=== PATIENT | male | born 1985 | race Caucasian/White ===

== ENCOUNTER 2016-11-22 16:20 | Inpatient (IN) | payer MEDICARE, OTHER ==
[~2016-11-22] VITALS: Ht 180.3 cm; Wt 54.6 kg
[~2016-11-22 16:20] MED LIST: ARIP1TAB87 PO
[2016-11-22 16:22] VITALS: BP 129/62; PULSE 81; RESP 12; TEMP 98.6; O2SAT 100
--- NOTE | 2016-11-22 16:31 | PD ---
Physical Exam Date Seen by Provider: Nov 22, 2016 Time Seen by Provider: 16:30 Narrative Pt is a 31 year old male presenting to the ED for admit for IV steroids. Pt has history of MS. VSS, awaiting bed placement. Data Data Last Documented VS Vital Signs Date Time Temp Pulse Resp B/P Pulse Ox O2 Delivery O2 Flow Rate FiO2 11/22/16 16:22 98.6 81 12 129/62 100 MDM Supervised Visit with MARCIANO: Urvashi Garcias Nov 22, 2016 16:31
[2016-11-22] MEDS ORDERED: methylPREDNISolone SO SUCC INJ 250 MG in DEXTROSE 5% IN WATER 100ML INJ 100 ML IV ONE ×2 (21:00)
[2016-11-22] MEDS ORDERED: methylPREDNISolone SOD SUCC 125 MG/2 ML VIAL IV PUSH ONE (21:00)
[2016-11-22 21:03] LABS: AUTOMATED NEUTROPHIL # 7.1 TH/MM3 (1.8-7.7); BASOPHIL # 0.1 TH/MM3 (0-0.2); EOSINOPHIL # 0.1 TH/MM3 (0-0.4); EOSINOPHIL % 0.6 % (0.0-4.0); HEMATOCRIT 53.1 % (39.0-51.0); HEMO FLAGS DIFF FINAL; LYMPH % 22.4 % (9.0-44.0); LYMPHOCYTE # 2.3 TH/MM3 (1.0-4.8); MEAN CELL VOLUME 86.4 FL (80.0-100.0); MEAN CORPUSCULAR HEMOGLOBIN 30.5 PG (27.0-34.0); MEAN CORPUSCULAR HGB CONC 35.3 % (32.0-36.0); MONO % 6.9 % (0.0-8.0); NEUT % 69.1 % (16.0-70.0); PLATELET COUNT 202 TH/MM3 (150-450); RED BLOOD COUNT 6.15 MIL/MM3 (4.50-5.90); RED CELL DISTRIBUTION WIDTH 13.3 % (11.6-17.2); WHITE BLOOD COUNT 10.2 TH/MM3 (4.0-11.0)
[2016-11-22 21:24] LABS: ALKALINE PHOSPHATASE 83 U/L (45-117); TOTAL BILIRUBIN ADULT 0.5 MG/DL (0.2-1.0)
[2016-11-22] MEDS ORDERED: SODIUM CHLORID 0.9% 500 ML INJ 500 ML IV ONE (21:30)
[2016-11-22 21:33] LABS: ALT (GPT) 18 U/L (12-78); ANION GAP 8 MEQ/L (5-15); AST (GOT) 26 U/L (15-37); BICARBONATE 29.1 MEQ/L (21.0-32.0); BLOOD UREA NITROGEN 13 MG/DL (7-18); CHLORIDE 101 MEQ/L (98-107); GLOMERULAR FILTRATION RATE 100 ML/MIN (>89); POTASSIUM 4.7 MEQ/L (3.5-5.1); SODIUM (NA) 138 MEQ/L (136-145)
--- NOTE | 2016-11-22 21:45 | PD ---
HPI Chief Complaint: General Weakness Time Seen by Provider: 20:26 Travel History International Travel<30 days: No Contact w/Intl Traveler<30days: No Traveled to known affect area: No History of Present Illness HPI Patient is a 31 year old male with history of MS, who comes in due to an MS flare. He says he has been unable to walk for the past 2 months. He was on one medication at home that provided no relief of his symptoms. Dr. Diaz, his neurologist suggested he get Solumedrol infusions. He received the first one yesterday at home, but the visiting nurse today said his IV blew. Dr. Diaz would like him admitted to the hospital for management of his flare. He denies fever or chills. He denies any difficulty breathing. PFSH Past Medical History Anxiety: No Depression: No Cancer: No Cardiovascular Problems: No Diminished Hearing: Yes (Pt states " its sometimes effected by my multiple sclerosis" ) Endocrine: No Genitourinary: No Immune Disorder: No Musculoskeletal: No Neurologic: Yes (multiple sclerosis DX 2006, syptoms since 17 years old.) Psychiatric: No Reproductive: No Respiratory: No Tetanus Vaccination: > 5 Years Influenza Vaccination: No Social History Alcohol Use: Yes (rare) Tobacco Use: Yes (3/4 ppd, smoked today) Substance Use: Yes (methamphetamine; THC) Allergies-Medications (Allergen,Severity, Reaction): Coded Allergies: No Known Allergies (Verified , 11/22/16) Reported Meds & Prescriptions Reported Meds & Active Scripts Active No Active Prescriptions or Reported Medications Review of Systems Except as stated in HPI: all other systems reviewed are Neg General / Constitutional: No: Fever, Chills Eyes: No: Blurred Vision HENT: No: Headaches, Lightheadedness Cardiovascular: No: Chest Pain or Discomfort Respiratory: No: Shortness of Breath Gastrointestinal: No: Nausea, Vomiting Genitourinary: No: Dysuria Musculoskeletal: No: Pain Neurologic: Positive: Weakness Physical Exam Narrative GENERAL: Awake and alert, in no acute distress. SKIN: Focused skin assessment warm/dry. HEAD: Atraumatic. Normocephalic. EYES: Pupils equal and round. No scleral icterus. No injection or drainage. ENT: Mucous membranes pink and moist. NECK: Trachea midline. No JVD. CARDIOVASCULAR: Regular rate and rhythm. No murmur appreciated. RESPIRATORY: No accessory muscle use. Clear to auscultation. Breath sounds equal bilaterally. GASTROINTESTINAL: Abdomen soft, non-tender, nondistended. MUSCULOSKELETAL: No obvious deformities. No clubbing. No cyanosis. No edema. NEUROLOGICAL: Awake and alert. No obvious cranial nerve deficits. Both legs weak, strength 3/5 in the right leg, 2/5 in the left leg. Normal speech. PSYCHIATRIC: Appropriate mood and affect; insight and judgment normal. Data Data Last Documented VS Vital Signs Date Time Temp Pulse Resp B/P Pulse Ox O2 Delivery O2 Flow Rate FiO2 11/22/16 16:22 98.6 81 12 129/62 100 Orders Complete Blood Count With Diff (11/22/16 20:47) Comprehensive Metabolic Panel (11/22/16 20:47) Iv Access Insert/Monitor (11/22/16 20:47) Methylprednisolone So Succ Inj (Solumedr (11/22/16 21:00) Methylprednisolone So Succ Inj (Solumedr (11/22/16 21:00) Sodium Chlorid 0.9% 500 Ml Inj (Ns 500 M (11/22/16 21:30) Labs Laboratory Tests Test 11/22/16 20:51 White Blood Count 10.2 TH/MM3 Red Blood Count 6.15 MIL/MM3 Hemoglobin 18.7 GM/DL Hematocrit 53.1 % Mean Corpuscular Volume 86.4 FL Mean Corpuscular Hemoglobin 30.5 PG Mean Corpuscular Hemoglobin 35.3 % Concent Red Cell Distribution Width 13.3 % Platelet Count 202 TH/MM3 Mean Platelet Volume 9.8 FL Neutrophils (%) (Auto) 69.1 % Lymphocytes (%) (Auto) 22.4 % Monocytes (%) (Auto) 6.9 % Eosinophils (%) (Auto) 0.6 % Basophils (%) (Auto) 1.0 % Neutrophils # (Auto) 7.1 TH/MM3 Lymphocytes # (Auto) 2.3 TH/MM3 Monocytes # (Auto) 0.7 TH/MM3 Eosinophils # (Auto) 0.1 TH/MM3 Basophils # (Auto) 0.1 TH/MM3 CBC Comment DIFF FINAL Differential Comment Sodium Level 138 MEQ/L Potassium Level 4.7 MEQ/L Chloride Level 101 MEQ/L Carbon Dioxide Level 29.1 MEQ/L Anion Gap 8 MEQ/L Blood Urea Nitrogen 13 MG/DL Creatinine 0.88 MG/DL Estimat Glomerular Filtration 100 ML/MIN Rate Random Glucose 90 MG/DL Calcium Level 9.3 MG/DL Total Bilirubin 0.5 MG/DL Aspartate Amino Transf 26 U/L (AST/SGOT) Alanine Aminotransferase 18 U/L (ALT/SGPT) Alkaline Phosphatase 83 U/L Total Protein 8.3 GM/DL Albumin 4.3 GM/DL MDM Medical Decision Making Medical Screen Exam Complete: Yes Emergency Medical Condition: Yes Medical Record Reviewed: Yes Differential Diagnosis MS flare vs dehydration vs electrolyte abnormalities Narrative Course Patient is a 31 year old male who comes in due to an MS flare. Exam shows weakness of his legs. IV established, labs sent. Labs show a Hgb of 17, suggesting a degree of dehydration. Given IVF. Given first dose of Solumedrol. Per Dr. Diaz, patient should receive 250mg Solumedrol every 6 hrs. Patient will be admitted for further management. Diagnosis Primary Impression: MS (multiple sclerosis) Admitting Information Admitting Physician Requests: Admit Scripts No Active Prescriptions or Reported Meds Kori Johnson MD Nov 22, 2016 21:45
[2016-11-22] MEDS ORDERED: SENNOSIDES 8.6 MG TAB PO PRN (22:00)
[2016-11-22] MEDS ORDERED: ACETAMINOPHEN 325 MG TAB PO PRN (22:00)
[2016-11-22] MEDS ORDERED: ONDANSETRON HCL 4 MG/2 ML VIAL IVP PRN (22:00)
[2016-11-22] MEDS ORDERED: SODIUM CHLORIDE 0.9% FLUSH 10 ML FLUSH IV FLUSH PRN (22:00)
[2016-11-22] MEDS ORDERED: LACTULOSE SYRUP 20 GM/30 ML CUP PO PRN (22:00)
[2016-11-22] MEDS ORDERED: MORPHINE SULFATE 4 MG/ML INJ IV PRN (22:00)
[2016-11-22] MEDS ORDERED: MAGNESIUM HYDROXIDE SUSP 30 ML CUP PO PRN (22:00)
[2016-11-22] MEDS ORDERED: ACETAMINOPHEN/HYDROcodone 325 MG/5 MG TAB PO PRN (22:00)
[2016-11-22] MEDS ORDERED: BISACODYL 10 MG SUPP RECTAL PRN (22:00)
--- NOTE | 2016-11-22 22:02 | HHI.HP ---
[facility] Dwight [facility], PhD, MD Admission Diagnosis MS Flare Diagnoses: (1) MS (multiple sclerosis) Diagnosis: Principal (2) Hemoglobinemia Diagnosis: Principal (3) Tobacco abuse Diagnosis: Principal Travel History International Travel<30 Days: No Contact w/Intl Traveler <30 Da: No Traveled to Known Affected Are: No History of Present Illness This is a 31-year-old male with PMH of Multiple Sclerosis, Tobacco Abuse and h/ o Substance Abuse was referred to the ER by his Neurologist, Dr. Diaz, for IV Solu-Medrol secondary to MS Flare. Per pt he has had progressive weakness, unable to walk for approx 2months. Follows w/ Dr. Diaz as outpatient, started on IV Solu-Medrol w/ [facility] yesterday, was to receive dose today, however IV not functioning and referred to ER. Dr. Diaz consulted by ER physician, pt to be continued on Solu-Medrol 250mg IV q6h. on arrival, BP 129/62, HR 81, O2 sat 100 % on RA, Afebrile. CBC unremarkable except for Hemoglobin 18.7. Chemistry unremarkable. Review of Systems Except as stated in HPI: all other systems reviewed are Neg ROS: 14 point review of systems otherwise negative. Past Family Social History Past Medical History PMH: Multiple Sclerosis, Tobacco Abuse and h/o Substance Abuse Past Surgical History PAST SURGICAL HISTORY: None Allergies: Coded Allergies: No Known Allergies (Verified , 11/22/16) Family History PAST FAMILY HISTORY: Reviewed. No h/o DM or CAD Social History PAST SOCIAL HISTORY: Occasional alcohol. Smokes 1ppd. +Methamphetamine, + Marijuana. Physical Exam Vital Signs Vital Signs Date Time Temp Pulse Resp B/P Pulse Ox O2 Delivery O2 Flow Rate FiO2 11/22/16 16:22 98.6 81 12 129/62 100 Physical Exam PE: GENERAL: Middle-aged male in no acute distress. HEENT: PERRLA, EOMI. No scleral icterus or conjunctival pallor. No lid lag or facial droop. CARDIOVASCULAR: Regular rate and rhythm. No obvious murmurs to auscultation. No chest tenderness to palpation. RESPIRATORY: No obvious rhonchi or wheezing. Clear to auscultation. Breath sounds equal bilaterally. GASTROINTESTINAL: Abdomen soft, non-tender, nondistended. BS normal. MUSCULOSKELETAL: Extremities without clubbing, cyanosis, or edema. No obvious deformities. NEUROLOGICAL: Awake, alert and oriented x4. Bilateral LE weakness, 3/5 strength. Moving both upper and lower extremities spontaneously. Laboratory Laboratory Tests Test 11/22/16 20:51 White Blood Count 10.2 Red Blood Count 6.15 Hemoglobin 18.7 Hematocrit 53.1 Mean Corpuscular Volume 86.4 Mean Corpuscular Hemoglobin 30.5 Mean Corpuscular Hemoglobin 35.3 Concent Red Cell Distribution Width 13.3 Platelet Count 202 Mean Platelet Volume 9.8 Neutrophils (%) (Auto) 69.1 Lymphocytes (%) (Auto) 22.4 Monocytes (%) (Auto) 6.9 Eosinophils (%) (Auto) 0.6 Basophils (%) (Auto) 1.0 Neutrophils # (Auto) 7.1 Lymphocytes # (Auto) 2.3 Monocytes # (Auto) 0.7 Eosinophils # (Auto) 0.1 Basophils # (Auto) 0.1 CBC Comment DIFF FINAL Differential Comment Sodium Level 138 Potassium Level 4.7 Chloride Level 101 Carbon Dioxide Level 29.1 Anion Gap 8 Blood Urea Nitrogen 13 Creatinine 0.88 Estimat Glomerular Filtration 100 Rate Random Glucose 90 Calcium Level 9.3 Total Bilirubin 0.5 Aspartate Amino Transf 26 (AST/SGOT) Alanine Aminotransferase 18 (ALT/SGPT) Alkaline Phosphatase 83 Total Protein 8.3 Albumin 4.3 Result Diagram: 11/22/16205011/22/162050 Assessment and Plan Problem List: (1) MS (multiple sclerosis) ICD Code: G35 Status: Acute (2) Hemoglobinemia ICD Code: D59.9 Status: Acute (3) Tobacco abuse ICD Code: Z72.0 Status: Acute Assessment and Plan A/P: 1. MS: Multiple Sclerosis w/ Acute Flare, progressive LE weakness x2 months, unable to ambulate. Follows w/ Dr. Diaz as outpatient, referred to ER for Solu -Medrol IV, Dr. Diaz consulted by ER physician, will start Solu-Medrol 250mg IV q6h. 2. Hemoglobinemia: Hgb 18, likely combination of dehydration and tobacco abuse. IVF, repeat labs in am. 3. Tobacco Abuse: Pt counselled. NicoDerm/Ativan prn if needed. 4. DVT Prophylaxis: SCD/Teds. 5. Social work for d/c planning as needed. 6. Case discussed w/ ER physician at length. Physician Certification 2 Midnight Certification Type: Admission for Inpatient Services Order for Inpatient Services The services are ordered in accordance with Medicare regulations or non- Medicare payer requirements, as applicable. In the case of services not specified as inpatient-only, they are appropriately provided as inpatient services in accordance with the 2-midnight benchmark. Estimated LOS (days): 2 days is the estimated time the patient will need to remain in the hospital, assuming treatment plan goals are met and no additional complications. Post-Hospital Plan: Not yet determined Clair Garcia MD Nov 22, 2016 22:02
[2016-11-22] MEDS: SODIUM CHLOR 0.9% 1000 ML INJ 1,000 ML IV SCH (22:16)
[2016-11-22 23:20] VITALS: BP 126/58; PULSE 84; RESP 14; O2SAT 99
[2016-11-23 00:33] VITALS: BP 132/60; PULSE 78; RESP 14; O2SAT 100
[2016-11-23] MEDS: methylPREDNISolone SOD SUCC 125 MG/2 ML VIAL IV PUSH SCH ×4 (03:31→22:05)
[2016-11-23 04:00] VITALS: BP 140/91; PULSE 84; RESP 18; TEMP 96.8; O2SAT 97
[2016-11-23 05:42] LABS: AUTOMATED NEUTROPHIL # 6.4 TH/MM3 (1.8-7.7); BASOPHIL # 0.1 TH/MM3 (0-0.2); BASOPHIL % 0.8 % (0.0-2.0); EOSINOPHIL % 0.1 % (0.0-4.0); HEMATOCRIT 47.4 % (39.0-51.0); HEMO FLAGS DIFF FINAL; LYMPH % 4.6 % (9.0-44.0); LYMPHOCYTE # 0.3 TH/MM3 (1.0-4.8); MEAN CELL VOLUME 86.1 FL (80.0-100.0); MEAN CORPUSCULAR HEMOGLOBIN 29.8 PG (27.0-34.0); MEAN CORPUSCULAR HGB CONC 34.7 % (32.0-36.0); MONO % 0.3 % (0.0-8.0); NEUT % 94.2 % (16.0-70.0); PLATELET COUNT 187 TH/MM3 (150-450); RED CELL DISTRIBUTION WIDTH 13.1 % (11.6-17.2); WHITE BLOOD COUNT 6.8 TH/MM3 (4.0-11.0)
[2016-11-23 06:12] LABS: ALKALINE PHOSPHATASE 67 U/L (45-117); ALT (GPT) 15 U/L (12-78); ANION GAP 9 MEQ/L (5-15); AST (GOT) 19 U/L (15-37); BICARBONATE 23.9 MEQ/L (21.0-32.0); BLOOD UREA NITROGEN 11 MG/DL (7-18); CHLORIDE 107 MEQ/L (98-107); GLOMERULAR FILTRATION RATE 130 ML/MIN (>89); SODIUM (NA) 140 MEQ/L (136-145); TOTAL BILIRUBIN ADULT 0.4 MG/DL (0.2-1.0)
[2016-11-23] MEDS: SODIUM CHLOR 0.9% 1000 ML INJ 1,000 ML IV SCH ×2 (07:59→17:59)
[2016-11-23 08:00] VITALS: BP 123/82; PULSE 81; RESP 18; TEMP 97.6; O2SAT 98
[2016-11-23] MEDS: DOCUSATE SODIUM 50 MG/SENNA 8.6 MG TAB PO SCH ×2 (08:46→22:05)
[2016-11-23] MEDS: SODIUM CHLORIDE 0.9% FLUSH 10 ML FLUSH IV FLUSH SCH ×2 (09:00→21:00)
--- NOTE | 2016-11-23 09:26 | MB ---
cc: ADA YI M.D. DATE OF CONSULTATION 11/23/2016 REASON FOR CONSULTATION He is seen in neurological consultation. He is a 31-year-old patient of Dr. Diaz for multiple sclerosis. He has been having some exacerbation of leg weakness for the past 10 days or so. The patient describes that he is no longer being able to walk using a walker as usual and this has progressed. He was told to come to the hospital. An attempt to treat him as an outpatient was made, but apparently they could not get an IV line to use Solu-Medrol. He has a diagnosis of MS in 2006 and progressively has gotten worse. He is taking with this Tecfidera and more recently Aubagio. Currently, he has been off medication for a couple of months and he is waiting on another medication, apparently Ocrevus. On exam, the patient is awake, alert, initially, pleasant, although seems to be irritable at the end as he was upset about the hospital stay. His speech is moderately dysarthric. He has [id number] dysmetria right slightly more than left and overall moderately severe. His strength is mildly impaired in the upper extremities. Reflex is 1+ at the elbows, brisker reflex at the knees with clonus at the ankles. Plantar response is equivocal, but probably flexor. The motor exam in the lower extremities is about 2/5 overall. ASSESSMENT Multiple sclerosis exacerbation. He has been treated with Solu-Medrol courses in the past. He is to continue Solu-Medrol 250 IV every 6 hours. If outpatient Solu-Medrol can be arranged, this would be a reasonable alternative as the patient is very anxious to go home. He might need a PICC line for discharge in that scenario. Would plan on giving him Solu-Medrol for a total of 3-5 days, dose being a total of 1000 mg a day. He follows with Dr. Diaz. I saw his laboratory data. I do not think we need any imaging studies at this point. Thank you for asking us to assist in his care. MD BARBIE Kirkpatrick/MARGARITA /8:53 AM /9:15 AM
[2016-11-23 12:00] VITALS: BP 148/92; PULSE 116; TEMP 97; O2SAT 98
--- NOTE | 2016-11-23 13:59 | HHI.PR ---
Subjective Remarks patient feels better and stronger wanting to go home had a good BM just now he states that a nurse comes to his home and gives him Solumedrol IV plan was to have this for 3- 5 days IV but lost peripheral access- that;s why patient was sent here Objective Vitals Vital Signs Date Time Temp Pulse Resp B/P Pulse Ox O2 Delivery O2 Flow Rate FiO2 11/23/16 12:00 97.0 116 148/92 98 11/23/16 08:00 97.6 81 18 123/82 98 11/23/16 04:00 96.8 84 18 140/91 97 11/23/16 00:33 78 14 132/60 100 11/22/16 23:20 84 14 126/58 99 11/22/16 16:22 98.6 81 12 129/62 100 I/O 11/22/16 11/22/16 11/22/16 11/23/16 11/23/16 11/23/16 07:00 15:00 23:00 07:00 15:00 23:00 Intake Total 350 ml Balance 350 ml Intake IV Total 350 ml # Voids 2 Result Diagram: 11/23/16 0450 11/23/16 0450 Objective Remarks awake and alert, NAD anciteric lungs clear regular rhythm abdomen soft extremities no edema moves all extremities spontaneously A/P Problem List: (1) MS (multiple sclerosis) ICD Code: G35 Status: Acute (2) Hemoglobinemia ICD Code: D59.9 Status: Acute (3) Tobacco abuse ICD Code: Z72.0 Status: Acute Assessment and Plan 31 years old male 1. MS: Multiple Sclerosis w/ Acute Flare, progressive LE weakness x2 months, unable to ambulate. Follows w/ Dr. Diaz as outpatient, Solu-Medrol 250mg IV q6h. peripheral access obtained. Neurology ff along with us. PT consult 2. Hemoglobinemia: Hgb 18, likely combination of dehydration and tobacco abuse. continue IVF, H and H improved. 3. Tobacco Abuse: Amphetamine +. Pt counselled. NicoDerm/Ativan prn if needed. 4. DVT Prophylaxis: SCD/Teds. 5. Social work for d/c planning as needed. PT/OT consult patient states has all supplies/meds at home will ask CM to confirm to make sure safe discharge and steroid course uninterrupted Silvina Vogt MD Nov 23, 2016 13:59
--- NOTE | 2016-11-23 14:16 | HHI.FF ---
Face to Face Verification Diagnosis: (1) MS (multiple sclerosis) Physical Therapy Order: Evaluate and Treat, Improve ambulation Occupational Therapy Order: Evaluate and Treat, Fine motor coordination Home Health Nursing Order: Medical education Signs/symptoms of disease process Medication education-adverse effect Nursing assessment with vital signs I have seen patient Isidro Yu on 11/23/16. My clinical findings support the need for the requested home health care services because: Ltd mobility - disease progression Deconditioned w/ increased weakness High risk of falls I certify that my clinical findings support that this patient is homebound because: Unsteady gait/balance Need for psychosocial assistance Silvina Vogt MD Nov 23, 2016 14:16
[2016-11-23] MEDS: PANTOPRAZOLE SOD 40 MG DELAYED RELEASE TAB PO SCH (15:00)
[2016-11-23 16:00] VITALS: BP 135/75; PULSE 90; RESP 18; TEMP 96.8; O2SAT 97
[2016-11-23 20:00] VITALS: BP 129/68; PULSE 86; RESP 18; TEMP 97.2; O2SAT 98
[2016-11-24] VITALS: BP 125/68; PULSE 86; RESP 18; TEMP 97.3; O2SAT 98
[2016-11-24] MEDS: methylPREDNISolone SOD SUCC 125 MG/2 ML VIAL IV PUSH SCH ×4 (03:00→20:39)
[2016-11-24] MEDS: SODIUM CHLOR 0.9% 1000 ML INJ 1,000 ML IV SCH ×3 (03:43→23:59)
[2016-11-24 04:00] VITALS: BP 124/69; PULSE 89; RESP 17; TEMP 97.5; O2SAT 97
[2016-11-24 08:00] VITALS: BP 120/76; PULSE 84; RESP 16; TEMP 96.9; O2SAT 97
--- NOTE | 2016-11-24 08:12 | HHI.PR ---
Subjective Remarks feeling better no complains of pain, no incontinence now agreeable to SNF- d/w him and PT staff- strength improving but not consistent yet- gait unsteady d/w staff nurse and patient "veins keep rolling" we loss IV access again Objective Vitals Vital Signs Date Time Temp Pulse Resp B/P Pulse Ox O2 Delivery O2 Flow Rate FiO2 11/24/16 04:00 97.5 89 17 124/69 97 11/24/16 00:00 97.3 86 18 125/68 98 11/23/16 20:00 97.2 86 18 129/68 98 11/23/16 16:00 96.8 90 18 135/75 97 11/23/16 12:00 97.0 116 148/92 98 I/O 11/23/16 11/23/16 11/23/16 11/24/16 11/24/16 11/24/16 07:00 15:00 23:00 07:00 15:00 23:00 Intake Total 350 ml 720 ml 240 ml 480 ml Balance 350 ml 720 ml 240 ml 480 ml Intake Oral 720 ml 240 ml 480 ml IV Total 350 ml # Voids 2 2 1 3 # Bowel Movements 1 0 0 Result Diagram: 11/23/16 0450 11/23/16 0450 Objective Remarks awake and alert, NAD anicter lungs clear regular rhythm abdomen soft extremities no edema, individual muscle group strength strong moves all extremities spontaneously A/P Problem List: (1) MS (multiple sclerosis) ICD Code: G35 Status: Acute (2) Hemoglobinemia ICD Code: D59.9 Status: Acute (3) Tobacco abuse ICD Code: Z72.0 Status: Acute Assessment and Plan 31 years old male 1. MS: Multiple Sclerosis w/ Acute Flare, progressive LE weakness x2 months, unable to ambulate. Follows w/ Dr. Diaz as outpatient, on high dose IV steroids- Solu-Medrol 250mg IV q6h. Neurology ff along with us. PT consult 2. Hemoglobinemia: Hgb 18, likely combination of dehydration and tobacco abuse. continue IVF, H and H improved. 3. Tobacco Abuse: Amphetamine +. Pt counselled. NicoDerm/Ativan prn if needed. 4. DVT Prophylaxis: SCD/Teds. 5. Social work for d/c planning as needed. - SNF- for PT and IV meds administration Vascular consult- for PICC line placement- patient needs high dose steroid for at least 3-5 days for MS flare poor IV access PT/OT daily- d/w Darin our PT- ideal SNF candidate- patient agreeable now to go and for IV Solumedrol administration q 6 Silvina Vogt MD Nov 24, 2016 08:12
[2016-11-24] MEDS: DOCUSATE SODIUM 50 MG/SENNA 8.6 MG TAB PO SCH ×2 (09:00→20:53)
[2016-11-24] MEDS: SODIUM CHLORIDE 0.9% FLUSH 10 ML FLUSH IV FLUSH SCH ×2 (09:00→20:20)
[2016-11-24] MEDS ORDERED: INFLUENZA VIRUS VACCINE (QUADRIVALENT) 0.5 ML SYR IM ONE (10:00)
[2016-11-24 12:00] VITALS: BP 117/68; PULSE 108; RESP 20; TEMP 97.4; O2SAT 95
[2016-11-24] MEDS: PANTOPRAZOLE SOD 40 MG DELAYED RELEASE TAB PO SCH (14:11)
[2016-11-24 16:00] VITALS: BP 112/75; PULSE 78; RESP 16; TEMP 96.3; O2SAT 98
[2016-11-24 20:00] VITALS: BP 133/71; PULSE 80; RESP 17; TEMP 96.3; O2SAT 94
[2016-11-25] VITALS: BP 132/71; PULSE 78; RESP 18; TEMP 97.2; O2SAT 98
[2016-11-25] MEDS: methylPREDNISolone SOD SUCC 125 MG/2 ML VIAL IV PUSH SCH ×3 (02:36→17:14)
[2016-11-25 04:00] VITALS: BP 133/72; PULSE 72; RESP 19; TEMP 96.8; O2SAT 98
[2016-11-25 08:00] VITALS: BP 123/76; PULSE 64; RESP 15; TEMP 96.5; O2SAT 99
[2016-11-25] MEDS: DOCUSATE SODIUM 50 MG/SENNA 8.6 MG TAB PO SCH (08:54)
[2016-11-25] MEDS: PANTOPRAZOLE SOD 40 MG DELAYED RELEASE TAB PO SCH (08:54)
--- NOTE | 2016-11-25 09:54 | HHI.PR ---
Subjective Remarks feels stronger no complains of pain no incontinence, good po Objective Vitals Vital Signs Date Time Temp Pulse Resp B/P Pulse Ox O2 Delivery O2 Flow Rate FiO2 11/25/16 08:00 96.5 64 15 123/76 99 11/25/16 04:00 96.8 72 19 133/72 98 11/25/16 00:00 97.2 78 18 132/71 98 11/24/16 20:00 96.3 80 17 133/71 94 11/24/16 16:00 96.3 78 16 112/75 98 11/24/16 12:00 97.4 108 20 117/68 95 I/O 11/24/16 11/24/16 11/24/16 11/25/16 11/25/16 11/25/16 07:00 15:00 23:00 07:00 15:00 23:00 Intake Total 480 ml 500 ml 960 ml 480 ml Balance 480 ml 500 ml 960 ml 480 ml Intake Oral 480 ml 500 ml 960 ml 480 ml # Voids 3 4 2 3 # Bowel Movements 0 1 0 0 Result Diagram: 11/23/1644911/23/160 Objective Remarks awake and alert, NAD anicteric lungs clear abdomen soft extremities no edema, individual muscle group strength strong moves all extremities spontaneously Procedures 11/14- midline IV access A/P Problem List: (1) MS (multiple sclerosis) ICD Code: G35 Status: Acute (2) Hemoglobinemia ICD Code: D59.9 Status: Acute (3) Tobacco abuse ICD Code: Z72.0 Status: Acute Assessment and Plan 31 years old male 1. MS: Multiple Sclerosis w/ Acute Flare, progressive LE weakness x2 months, unable to ambulate. Follows w/ Dr. Diaz as outpatient, on high dose IV steroids- Solu-Medrol 250mg IV q6h. Neurology ff along with us. PT ff- per patient baseline uses a walker 2. Hemoglobinemia: Hgb 18, likely combination of dehydration and tobacco abuse. H and H improved. 3. Tobacco Abuse: Amphetamine +. Pt counselled. NicoDerm/Ativan prn if needed. 4. DVT Prophylaxis: SCD/Teds. 5. Social work for d/c planning as needed. - SNF- for PT and IV meds administration PT/OT daily- d/w Darin our PT- ideal SNF candidate- patient agreeable now to go - CM consult and for IV Solumedrol administration q 6 Silvina Vogt MD Nov 25, 2016 09:54
[2016-11-25 12:00] VITALS: BP 135/75; PULSE 65; RESP 16; TEMP 97.2; O2SAT 99
[2016-11-25] MEDS ORDERED: SOLU125I IV PUSH (12:59)
[2016-11-25] MEDS ORDERED: PANT40TA3 PO (12:59)
[2016-11-25] MEDS ORDERED: HYDR-3516 PO (12:59)
[2016-11-25] MEDS ORDERED: ACET1TAB86 PO (12:59)
--- NOTE | 2016-11-25 14:54 | HHI.PR ---
Review/Management Diagnosis Multiple Sclerosis Exacerbation Plan cotinue iv solumedrol 5 days--through Friday. Ok from neuro standpoint to transfer to [facility] rehab and finish solumedrol there Diagnosis/Plan: Subjective Subjective Comments No acute events reported Day 3 iv solumedrol He feels he is improving but still with significant weakness on left side Active Medications Current Medications Medications (Trade) Dose Ordered Sig/Simona Route Start Time Stop Time Status Last Admin (NS 1000 ml Inj) 1,000 ml @ 100 mls/hr Q10H IV 11/22/16 21:59 11/24/16 20:53 (NS Flush) 2 ml UNSCH PRN IV FLUSH 11/22/16 22:00 (NS Flush) 2 ml BID IV FLUSH 11/23/16 09:00 11/23/16 09:00 (Zofran Inj) 4 mg Q6H PRN IVP 11/22/16 22:00 11/24/16 20:51 (Tylenol) 650 mg Q6H PRN PO 11/22/16 22:00 ([place] 5-325 Mg) 1 tab Q4H PRN PO 11/22/16 22:00 (Morphine Inj) 2 mg Q3H PRN IV 11/22/16 22:00 (Kami-Colace) 1 tab BID PO 11/23/16 09:00 11/25/16 08:54 (Milk Of Magnesia Liq) 30 ml Q12H PRN PO 11/22/16 22:00 (Senokot) 17.2 mg Q12H PRN PO 11/22/16 22:00 (Dulcolax Supp) 10 mg DAILY PRN RECTAL 11/22/16 22:00 (Lactulose Liq) 30 ml DAILY PRN PO 11/22/16 22:00 (Protonix) 40 mg DAILY PO 11/23/16 15:00 11/25/16 08:54 (SoluMEDROL INJ) 250 mg Q6H IV PUSH 11/24/16 14:00 11/25/16 08:54 Allergies Allergies Coded Allergies No Known Allergies (Verified11/22/16) Exam I&O / VS 11/24/16 11/24/16 11/25/16 15:00 23:00 07:00 Intake Total 500 ml 960 ml 480 ml Balance 500 ml 960 ml 480 ml Intake Oral 500 ml 960 ml 480 ml # Voids 4 2 3 # Bowel Movements 1 0 0 Vital Signs Date Time Temp Pulse Resp B/P Pulse Ox O2 Delivery O2 Flow Rate FiO2 11/25/16 12:00 97.2 65 16 135/75 99 11/25/16 08:00 96.5 64 15 123/76 99 11/25/16 04:00 96.8 72 19 133/72 98 11/25/16 00:00 97.2 78 18 132/71 98 11/24/16 20:00 96.3 80 17 133/71 94 11/24/16 16:00 96.3 78 16 112/75 98 Exam Comments alert, speech normal CN intact MOTOR 5/5 RUE, 4/5 LUE, 4+/5 RLE, 3/5 LLE Dwight Diaz PhD MD Nov 25, 2016 14:54
--- NOTE | 2016-11-25 16:01 | HHI.DS ---
Discharge Summary Admission Date Nov 22, 2016 at 21:51 Discharge Date: Nov 25, 2016 Admitting Diagnosis MS Flare (1) MS (multiple sclerosis) ICD Code: G35 Diagnosis: Principal (2) Hemoglobinemia ICD Code: D59.9 Diagnosis: Secondary (3) Tobacco abuse ICD Code: Z72.0 Diagnosis: Secondary Procedures 11/14- midline IV access Brief History - From Admission This is a 31-year-old male with PMH of Multiple Sclerosis, Tobacco Abuse and h/ o Substance Abuse was referred to the ER by his Neurologist, Dr. Diaz, for IV Solu-Medrol secondary to MS Flare. Per pt he has had progressive weakness, unable to walk for approx 2months. Follows w/ Dr. Diaz as outpatient, started on IV Solu-Medrol w/ [facility] yesterday, was to receive dose today, however IV not functioning and referred to ER. Dr. Diaz consulted by ER physician, pt to be continued on Solu-Medrol 250mg IV q6h. on arrival, BP 129/62, HR 81, O2 sat 100 % on RA, Afebrile. CBC unremarkable except for Hemoglobin 18.7. Chemistry unremarkable. CBC/BMP: 11/23/16 0450 11/23/16 0450 Significant Findings Laboratory Tests Test 11/22/16 11/23/16 20:51 04:50 Red Blood Count 6.15 MIL/MM3 (4.50-5.90) Hemoglobin 18.7 GM/DL (13.0-17.0) Hematocrit 53.1 % (39.0-51.0) Total Protein 8.3 GM/DL (6.4-8.2) Neutrophils (%) (Auto) 94.2 % (16.0-70.0) Lymphocytes (%) (Auto) 4.6 % (9.0-44.0) Lymphocytes # (Auto) 0.3 TH/MM3 (1.0-4.8) Random Glucose 124 MG/DL (74-106) PE at Discharge awake and alert, NAD anicteric lungs clear abdomen soft extremities no edema, individual muscle group strength stronger moves all extremities spontaneously Pt update on day of discharge awake and alert strength stronger with ongoing PT and IV steroids motivated with physical therapy Hospital Course 31 years old male 1. MS: Multiple Sclerosis w/ Acute Flare, progressive LE weakness x2 months, unable to ambulate. Follows w/ Dr. Diaz as outpatient, on high dose IV steroids- Solu-Medrol 250mg IV q6h. Neurology ff along with us. PT ff- per patient baseline uses a walker 2. Hemoglobinemia: Hgb 18, likely combination of dehydration and tobacco abuse. H and H improved. 3. Tobacco Abuse: Amphetamine +. Pt counselled. NicoDerm/Ativan prn if needed. 4. DVT Prophylaxis: SCD/Teds. 5. Social work for d/c planning as needed. - SNF- for PT and IV meds administration PT/OT daily- d/w Darin our PT- ideal SNF candidate- patient agreeable now to go - CM consult and for IV Solumedrol administration q 6 Pt Condition on Discharge: Stable Discharge Disposition: Rehab Inpatient Discharge Time: <= 30 minutes Discharge Instructions DIET: Follow Instructions for: As Tolerated, No Restrictions Speech Therapy-Diet Recommends: Regular Activities you can perform: Weight Bearing as Halina Other Activity Instructions: daily PT superficison and progress Follow up Referrals: Neurology - Next Day with Argelia Tovar MD New Medications: Acetaminophen (Eq Acetaminophen) 325 Mg Tab 650 MG PO Q6H PRN FEVER/PAIN SCALE 1 TO 2 #30 TAB Hydrocodone-Acetaminophen (Hydrocodone-Acetaminophen) 5-325 mg Tab 1 TAB PO Q4H PRN PAIN SCALE 4 TO 10 Days 5 TAB Methylprednisolone Sod Succinate Inj (Solu-Medrol Inj) 125 Mg Inj 250 MG IV PUSH Q6H MS flare Days 3 INJECTION Pantoprazole (Pantoprazole) 40 Mg Tab 40 MG PO DAILY GIpro Days 30 TAB Silvina Vogt MD Nov 25, 2016 16:01
[2016-11-25 17:00] VITALS: BP 134/68; PULSE 80; RESP 15; TEMP 96.5; O2SAT 98
== END 2016-11-25 20:41 | DRG 59 ==
LOC: NEPC 16:20 → NEDA 21:51 → HOCA 11-23 01:39
PROVIDERS: ADMIT Internal Medicine; ATTEND Internal Medicine
DX: G35 Multiple sclerosis (principal); D59.9 Acquired hemolytic anemia, unspecified; F17.210 Nicotine dependence, cigarettes, uncomplicated; E86.0 Dehydration
CPT/HCPCS: 76937; 80053; 85025; J2405; J2930; J7030; J7040

== ENCOUNTER 2017-10-17 07:12 | Inpatient (IN) ==
[2017-10-17] MEDS ORDERED: Bisacodyl 10 MG Supp RECTAL PRN (08:02)
[2017-10-17] MEDS ORDERED: Acetaminophen 325 MG Tablet PO PRN (08:02)
--- NOTE | 2017-10-17 09:39 | P.HP ---
History of Present Illness Primary Care Physician: Dwight Diaz MD, PhD Chief Complaint: Progressive weakness, hearing loss History of Present Illness: Mr. Yu is a 32-year-old male with a history of multiple sclerosis , tobacco, marijuana use who presents to the hospital as a direct admit by neurologist Dr. Quintero for plasmapheresis. Dr. Dwight Diaz is patient's neurologist. Mr. Yu was admitted in November 2016 for MS exacerbation. About a month prior to this hospitalization, he had an episode of ear infection. Although he had hearing difficulties on one ear, since he had ear infection, now he has bilateral hearing loss. His lower extremity weakness has not improved despite aggressive in-patient and in-home physical therapy. Currently, patient is resting in bed comfortably. No CP, SOB, fever, chills. Parents at bedside. - Diagnosis (1) Multiple sclerosis Inpatient Certification: I certify that the inpatient services were ordered in accordance with Medicare regulations governing the order. This includes certification that hospital inpatient services are reasonable and necessary and in the case of services not specified as inpatient-only under 42 CFR 419.22(n), that they are appropriately provided as inpatient services in accordance to with the 2-midnight benchmark under 43 CFR 412.3(e) Estimated Total Length of Stay (Days): 5 Plans for Post Hospital Care: Home Review of Systems Ears, Nose, Mouth, and Throat: Reports other Comments: Hearing loss - bilateral. Musculoskeletal: Reports other Comments: Lower extremity weakness PMFSH - Medical / Surgical Hx Neg / Unobtainable Medical Problems Denied: Yes Surgical History: No Previous Surgery - Family History Family History: Family History (Last Updated 10/17/17 @ 09:56 by Odalys Faust DO) Grandparent Family history of acute myocardial infarction - Tobacco History Tobacco Use In Past 30 Days: Yes Smoking Status: Current every day smoker - Alcohol History How Often Do You Have a Drink Containing Alcohol: Never - Substance Use History Substance History: Active Abuse Medications and Allergies Active Medications: Active Medications Acetaminophen (Tylenol) 650 mg PO Q4H PRN PRN Reason: Headache, fever, pain 1-4 Al Hydroxide/Mg Hydroxide (Milk Of Magnesia Liq) 30 ml PO Q12H PRN PRN Reason: Mild Constipation Bisacodyl (Dulcolax Supp) 10 mg RECTAL DAILY PRN PRN Reason: SEVERE CONSITIPATION Enoxaparin Sodium (Lovenox Inj) 40 mg SQ Q24H HARVINDER Lactulose (Lactulose Liq) 30 ml PO DAILY PRN PRN Reason: SEVERE CONSITIPATION Sennosides (Senokot) 17.2 mg PO Q12H PRN PRN Reason: Moderate Constipation Temazepam (Restoril) 15 mg PO HS PRN PRN Reason: INSOMNIA Allergies Allergy/AdvReac Type Severity Reaction Status Date / Time No Known Allergies Allergy Uncoded 11/22/16 20:31 Exam Vital signs: Vital Signs 10/17/17 08:13 10/17/17 08:14 Temperature 98 F Pulse Rate 70 Respiratory Rate 16 Blood Pressure 141/109 H 152/103 H Pulse Oximetry 100 Narrative: GENERAL: This is a well-nourished, well-developed patient, in no apparent distress. SKIN: No rashes, ecchymoses or lesions. Warm and dry. HEAD: Atraumatic. Normocephalic. No temporal or scalp tenderness. EYES: Pupils equal round and reactive. No injection or drainage. ENT: Nose without bleeding, purulent drainage or septal hematoma. Airway patent. NECK: Trachea midline. No lymphadenopathy. Supple, nontender, no meningeal signs. CARDIOVASCULAR: Regular rate and rhythm without murmurs, gallops, or rubs. No JVD. RESPIRATORY: Clear to auscultation. Breath sounds equal bilaterally. No wheezes , rales, or rhonchi. GASTROINTESTINAL: Abdomen soft, non-tender, nondistended. No guarding. MUSCULOSKELETAL: Extremities without clubbing, cyanosis, or edema. NEUROLOGICAL: Awake and alert. Hard of hearing. No focal deficits. Caprini VTE Risk Assessment Caprini VTE Risk Assessment: Moderate/High Risk (score >= 2) Caprini Risk Assessment Model: Point Value = 1 Point Value = 2 Point Value = 3 Point Value = 5 Age 41-60 Minor surgery BMI > 25 kg/m2 Swollen legs Varicose veins or History of unexplained or recurrent spontaneous Oral contraceptives or hormone replacement Sepsis (< 1 month) Serious lung disease, including pneumonia (< 1 month) Abnormal pulmonary function Acute myocardial infarction Congestive heart failure (< 1 month) History of inflammatory bowel disease Medical patient at bed rest Age 61-74 Arthroscopic surgery Major open surgery (> 45 min) Laparoscopic surgery (> 45 min) Malignancy Confined to bed (> 72 hours) Immobilizing plaster cast Central venous access Age >= 75 History of VTE Family history of VTE Factor V Leiden Prothrombin [id number] Lupus anticoagulant Anticardiolipin antibodies Elevated serum homocysteine Heparin-induced thrombocytopenia Other congenital or acquired thrombophilia Stroke (< 1 month) Elective arthroplasty Hip, pelvis, or leg fracture Acute spinal cord injury (< 1 month) Prophylaxis Regimen: Total Risk Factor Score Risk Level Prophylaxis Regimen 0-1 Low Early ambulation 2 Moderate Order ONE of the following: *Sequential Compression Device (SCD) *Heparin 5000 units SQ BID 3-4 Higher Order ONE of the following medications: *Heparin 5000 units SQ TID *Enoxaparin/Lovenox 40 mg SQ daily (WT < 150 kg, CrCl > 30 mL/min) *Enoxaparin/Lovenox 30 mg SQ daily (WT < 150 kg, CrCl > 10-29 mL/min) *Enoxaparin/Lovenox 30 mg SQ BID (WT < 150 kg, CrCl > 30 mL/min) AND/OR *Sequential Compression Device (SCD) 5 or more Highest Order ONE of the following medications: *Heparin 5000 units SQ TID (Preferred with Epidurals) *Enoxaparin/Lovenox 40 mg SQ daily (WT < 150 kg, CrCl > 30 mL/min) *Enoxaparin/Lovenox 30 mg SQ daily (WT < 150 kg, CrCl > 10-29 mL/min) *Enoxaparin/Lovenox 30 mg SQ BID (WT < 150 kg, CrCl > 30 mL/min) AND *Sequential Compression Device (SCD) Assessment and Plan - Assessment (1) Multiple sclerosis Code(s): G35 - Multiple sclerosis Status: Acute - Plan Mr. Yu is a 32 year old male with a history of MS who was admitted directly based on Neurologist's recommendations for Plasmapharesis. Patient has had persistent lower extremity weakness despite aggressive PT. His hearing is also worsening since he had an episode of ear infection about a month prior to this admission. Multiple sclerosis exacerbation - Will consult Dr. Diaz (Patient's neurologist). - Hematology consulted to initiate Plasmapharesis. - Obtain basic labs - CBC, CMP, PT/INR. - Regular diet. Tobacco abuse Marijuana use - Will start patient on Nicotine patch 14mg Qday. Full code. Lovenox.
[2017-10-17 11:56] LABS: Baso # (Auto) 0.1 th/mm3 (0.0-0.2); Baso % (Auto) 0.8 % (0.0-2.0); Eos # (Auto) 0.1 th/mm3 (0.0-0.4); Eos % (Auto) 1.6 % (0.0-4.0); Hematocrit 42.5 % (39.0-51.0); Hemoglobin 14.8 gm/dL (13.0-17.0); Lymph % (Auto) 26.8 % (9.0-44.0); Mean Corpuscular HGB Conc 34.7 % (32.0-36.0); Mean Corpuscular Hemoglobin 29.5 pg (27.0-34.0); Mean Platelet Volume 8.8 fL (7.0-11.0); Mono # (Auto) 0.7 th/mm3 (0.0-0.9); Mono % (Auto) 9.3 % (0.0-8.0); Neut # (Auto) 4.7 th/mm3 (1.8-7.7); Neut % (Auto) 61.5 % (16.0-70.0); Platelet Count 211 th/mm3 (150-450); Red Blood Count 5.01 mil/mm3 (4.50-5.90); Red Cell Distribution Width 13.6 % (11.6-17.2); White Blood Count 7.6 th/mm3 (4.0-11.0)
[2017-10-17 12:00] LABS: INR 1.1 Ratio; Prothrombin Time 11.4 sec (9.8-11.6)
[2017-10-17 12:19] LABS: Alanine Aminotransferase 13 U/L (12-78); Albumin 3.5 g/dL (3.4-5.0); Anion Gap 9 meq/L (5-15); Aspartate Aminotransferase 19 U/L (15-37); Blood Urea Nitrogen 17 mg/dL (7-18); Calcium 8.5 mg/dL (8.5-10.1); Chloride 110 meq/L (98-107); Glomerular Filtration Rate Greater Than 89 mL/min (>89); Glucose,Random 71 mg/dL (74-106); Potassium 3.9 meq/L (3.5-5.1); Sodium 143 meq/L (136-145)
[2017-10-17 12:21] LABS: Alkaline Phosphatase 70 U/L (45-117); Total Protein 6.2 g/dL (6.4-8.2)
[2017-10-17] MEDS: Enoxaparin Inj 40 MG/0.4 ML Syringe SQ SCH (12:45)
[2017-10-17] MEDS ORDERED: *Heparin 10,000 UNITS/10 ML Vial Periprocedural ONLY ONE (15:25)
--- NOTE | 2017-10-17 16:43 | IR ---
EXAM DATE: 10/17/2017 4:17 PM EDT AGE/SEX: 32 years / Male INDICATIONS: Patient presents with Multiple Sclerosis in need of temporary dialysis catheter placeme nt for plasmapheresis. CLINICAL DATA: This is the patient's initial encounter. Patient reports that signs and symptoms have been present for 1 day and indicates a pain score of 0/10. MEDICAL/SURGICAL HISTORY: Multiple sclerosis. Tobacco use.Marijuana use. No previous surgery. COMPARISON: No prior exams available for comparison. FLUORO TIME (min): 0.12 IMAGE SERIES: 2 ACCESS SITE: Right internal jugular vein DEVICE(S): 14 Divehi double lumen 15cm Schon catheter . . PROCEDURE : 1. Ultrasound guided venipuncture. 2. Fluoroscopic guidance. 3. Central line placement. The risks, benefits and alternatives to the procedure were explained and verbal and written consent w as obtained. The site was prepped in sterile fashion. Full sterile technique was used, including ca p, mask, sterile gloves and gown and a large sterile sheet. Hand hygiene and 2% chlorhexidine prep w as utilized per protocol for cutaneous antisepsis with appropriate dry time for site. Sterile gel an d sterile probe cover were utilized for ultrasound guidance. The skin and subcutaneous tissues were infiltrated with local anesthetic solution. A suitable site a cathy the vein was selected with ultrasound and fluoroscopic guidance. A small incision was made. Th e vein was accessed under direct ultrasound visualization using the micropuncture technique. The laisha ropuncture set was exchanged for a 0.035 wire. The tract was dilated. The catheter was advanced int o position under direct fluoroscopic visualization, and was advanced with the tip at the junction of the superior vena cava and rt atrium. The catheter was fixed in place with suture and a sterile dres sing was applied. The patient tolerated the procedure well and there were no complications. CONCLUSION: 1. Uncomplicated line placement as above. Electronically signed by: Newton Lawson MD 10/17/2017 4:42 PM EDT
--- NOTE | 2017-10-17 17:47 | MB ---
cc: Dwight Diaz MD, PhD Dwight Diaz MD PhD DATE: 10/16/2017 REASON FOR CONSULTATION: Multiple sclerosis. HISTORY OF PRESENT ILLNESS: Mr. Yu is a 32-year-old man who has multiple sclerosis, which has been progressing over the past year or so such that he is essentially bedridden, has speech difficulty. He has been on Aubagio. He has been tried on IV Solu-Medrol as an outpatient with no significant benefit. Therefore, he is admitted for a trial of plasmapheresis. PAST MEDICAL HISTORY: Remarkable for multiple sclerosis. MEDICATIONS 1. Aubagio 14 mg daily. 2. Captopril 12.5 mg b.i.d. 3. Lovenox 40 mg subcutaneous daily. 4. Lactulose. 5. Senokot. 6. Restoril. NEUROLOGICAL EXAMINATION: His blood pressure is 141/109, pulse is 70, respiratory rate is 16, temperature 98 degrees. Higher cortical function: He is alert. Speech is very dysarthric and aphasic. Cranial nerves are intact. Motor exam: He is diffusely weak at 3/5 in both upper extremities, 1/5 both lower extremities. He is hyperreflexic. LABORATORY DATA: The white count is 7600, hemoglobin 14.8, hematocrit 42.5%, platelet count 211,000. PT of 11.4, INR 1.1. Sodium is 143, potassium 3.9, chloride 110. The BUN is 17, creatinine 0.72, AST 19, ALT is 13. IMPRESSION: Severe multiple sclerosis. RECOMMENDATION: We will consult hematology for plasmapheresis, which will be a total of seven treatments every other day. Also obtain an MRI of the brain, cervical and thoracic spine. Dwight Diaz MD, PhD RICH/ , 05:34 PM , 05:45 PM
--- NOTE | 2017-10-17 19:06 | MB ---
cc: Lion Olivares MD DATE: 10/17/2017 REASON FOR CONSULTATION: Hematology consulted for plasmapheresis in a patient with exacerbation of multiple sclerosis. HISTORY OF PRESENT ILLNESS: The patient is a 32-year-old male patient with history of multiple sclerosis, admitted by Dr. Phillips for plasmapheresis. The patient has been seeing Dr. Diaz for multiple sclerosis. The multiple sclerosis had been progressively getting worse over the last 1 year. According to his father, the patient has loss of hearing. He has become bedridden for the last 1 month because of lower extremity weakness. He also has speech difficulty. He has tried IV Solu-Medrol and Aubagio without significant response. The patient denies any chest pain, shortness of breath or cough. He denies any headache, or vision changes. He denies any nausea, vomiting, diarrhea or abdominal pain. Denied any change in urine habits. PAST MEDICAL HISTORY: Multiple sclerosis. PAST SURGICAL HISTORY: None. FAMILY HISTORY: No multiple sclerosis. He has a sister who is healthy. SOCIAL HISTORY: He smoked marijuana. He has now switched to smoking e-cigarettes. He denies alcohol use. ALLERGIES: NO KNOWN DRUG ALLERGIES. CURRENT MEDICATIONS: 1. Dulcolax. 2. Captopril. 3. Lovenox. 4. Lactulose. 5. Nicotine patch. 6. Aubagio. 7. Senokot. REVIEW OF SYSTEMS: CONSTITUTIONAL: As above. EYES: Negative. ENT: As above. CARDIOVASCULAR: Denies any chest pressure or palpitation. RESPIRATORY: Denies shortness of breath or cough. GASTROINTESTINAL: Denies any nausea, vomiting, diarrhea, has constipation. Denies any abdominal pain. GENITOURINARY: Denies dysuria or hematuria. MUSCULOSKELETAL: As above. HEMATOLOGY: Negative. ENDOCRINE: Negative. DERMATOLOGIC: Negative. PSYCHIATRIC: Negative. NEUROLOGIC: As above. PHYSICAL EXAMINATION: VITAL SIGNS: Temperature 98, blood pressure 141/109, O2 saturation 100%. GENERAL: He is alert, oriented. He is hard of hearing. He is cachectic. HEENT: Atraumatic, normocephalic. Pupils are equal, round, reactive to light. Oropharynx has dry mucosa. NECK: No thyromegaly or palpable mass. LYMPHATIC: No palpable cervical, clavicular, axillary, or inguinal lymph nodes. CARDIOVASCULAR: Regular S1, S2, mildly tachycardic. LUNGS: Clear to auscultation anteriorly. ABDOMEN: Soft, nontender. I could not palpate liver or spleen. EXTREMITIES: No cyanosis, clubbing, or edema. SKIN: No rash or petechiae. NEUROLOGIC: Bilateral lower extremity weakness. LABORATORY DATA: WBC within normal limits. Creatinine 0.72. Liver transaminase within normal limits. IMPRESSION: Multiple sclerosis, which is progressively getting worse. He had been on Aubagio. He did not respond to IV Solu-Medrol. His symptoms have progressively worsen over the last 1 month. He was admitted to the hospital for plasmapheresis by Dr. Diaz. I have explained the procedure to the patient and his father at the bedside. We went over potential complications, which include, but are not limited to cardiovascular complications with coagulopathy, infusional reaction, hypocalcemia and so on. They agreed to proceed. We have consulted radiology to place a Vas-Cath. Plan to start plasmapheresis tomorrow. Discussed with Dr. Diaz and he recommended 7 sessions of plasmapheresis. We will exchange 1 plasma volume every other day. We will monitor his CBC and coagulation studies. PLAN: 1. Arrange for plasma exchange every other day for 7 times. 2. Monitor CBC and coagulation studies. 3. Discussed with Dr. Diaz. Thank you Dr. Diaz for asking me to see this patient. MD DAYANA Umaña/REKHA , 06:04 PM , 07:04 PM [facility] HOSPITALRachid
[2017-10-17] MEDS ORDERED: Temazepam 15 MG Capsule PO PRN (21:00)
[2017-10-17] MEDS ORDERED: Gadodiamide PF Inj 287 MG/ML 5 ML Syringe (for RAD MRI) IVCONTRAST ONE (21:14)
--- NOTE | 2017-10-17 21:38 | MR ---
EXAM DATE: 10/17/2017 9:19 PM EDT AGE/SEX: 32 years / Male INDICATIONS: . Multiple Sclerosis CLINICAL DATA: This is the patient's initial encounter. Patient reports that signs and symptoms have been present for 1 day and indicates a pain score of 8/10. MEDICAL/SURGICAL HISTORY: Multiple sclerosis. None. COMPARISON: [facility], MR BRAIN W AND W/O CONTRAST, 10/26/2016. . TECHNIQUE: Multiplanar, multisequence examination of the brain was performed without and with 10 ml O mniscan (gadodiamide) contrast as a single exam dose. FINDINGS: Extensive periventricular and subcortical demyelinating plaques are again noted and jeremias ears slightly worse than the previous examination in October 2016. Scattered enhancement of the perivent ricular and subcortical plaques is noted suggesting active demyelination. There is also a prominent n ew plaque within the region of the right brachium pontis measuring 15 mm and demonstrating some perip heral enhancement. A new plaque within the right midbrain is also identified and demonstrates some as sociated edema. The findings are consistent with interval worsening fifth multiple sclerosis. No acute infarct, acute hemorrhage, midline shift or extra-axial fluid collections are noted. The chantell tricles, sulci and cisterns are stable. CONCLUSION: 1. Extensive periventricular and subcortical demyelinating plaques are again noted and appears sligh tly worse than the previous examination in October 2016. Scattered enhancement of the periventricular an d subcortical plaques is noted suggesting active demyelination. There is also a prominent new plaque within the region of the right brachium pontis measuring 15 mm and demonstrating some peripheral enha ncement. A new plaque within the right midbrain is also identified and demonstrates some associated e dequan. The findings are consistent with interval worsening fifth multiple sclerosis. 2. No acute infarct, acute hemorrhage, midline shift or extra-axial fluid collections are noted. Electronically signed by: Armani Fuller MD 10/17/2017 9:36 PM EDT
[2017-10-17] MEDS ORDERED: clonazePAM 0.5 MG Tablet PO SCH (22:00)
--- NOTE | 2017-10-17 22:25 | MR ---
EXAM DATE: 10/17/2017 9:47 PM EDT AGE/SEX: 32 years / Male INDICATIONS: Multiple sclerosis. CLINICAL DATA: This is the patient's initial encounter. Patient reports that signs and symptoms have been present for 1 day and indicates a pain score of 9/10. MEDICAL/SURGICAL HISTORY: Multiple sclerosis. None. COMPARISON: [facility], MR BRAIN W AND W/O CONTRAST, 10/26/2016. . TECHNIQUE: Multiplanar, multisequence MRI of the thoracic spine was performed without and with 10 ml Omniscan (gadodiamide) contrast as a single exam dose. FINDINGS: The examination is limited by patient motion during scanning. There appeared to be demyelin ating plaques throughout the thoracic cord at multiple levels. In order to identify the exact locatio n of these plaques repeat scan without motion is necessary. Minimal posterior osteophytic spurring is noted at T3-4 resulting in very minimal effacement of the anterior thecal sac. No spinal stenosis or cord impingement is noted within the thoracic spine. The thoracic vertebral bodies are normal in hei ght and marrow intensity. CONCLUSION: 1. The examination is limited by patient motion during scanning. There appeared to be demyelinating plaques throughout the thoracic cord at multiple levels. In order to identify the exact location of t hese plaques repeat scan without motion is necessary. 2. Minimal posterior osteophytic spurring is noted at T3-4 resulting in very minimal effacement of t he anterior thecal sac. Electronically signed by: Armani Fuller MD 10/17/2017 10:24 PM EDT
[2017-10-17] MEDS: AUBAGIO 14 MG PO SCH (22:34)
[2017-10-17] MEDS: clonazePAM 0.5 MG Tablet PO SCH (22:35)
[2017-10-17] MEDS: Captopril 12.5 MG Tablet PO SCH (22:36)
--- NOTE | 2017-10-17 23:01 | MR ---
EXAM DATE: 10/17/2017 9:44 PM EDT AGE/SEX: 32 years / Male INDICATIONS: . Multiple Sclerosis CLINICAL DATA: This is the patient's initial encounter. Patient reports that signs and symptoms have been present for 1 day and indicates a pain score of 8/10. MEDICAL/SURGICAL HISTORY: Multiple sclerosis. None. COMPARISON: [facility] [place], MR THORACIC SPINE W & W/O CON, 10/17/2017. . TECHNIQUE: Multiplanar, multisequence MRI examination of the cervical spine was performed without an d with 10 ml Omniscan (gadodiamide) contrast as a single exam dose. FINDINGS: The examination is somewhat limited due to patient motion during scanning particularly degrading the axial sequences and therefore making it very difficult to determine if there are demyelinating plaque s present within the cervical cord. Mild cervical spondylosis is noted C5-6 and C6-7. Minimal diffuse disc bulges and uncovertebral joint spurring is noted at C5-6 and C6-7 resulting in mild bilateral f oraminal narrowing at these levels. CONCLUSION: 1. Examination is somewhat limited due to patient motion during scanning particularly degrading the axial sequences and therefore making it very difficult to determine if there are demyelinating plaque s present within the cervical cord. 2. Minimal diffuse disc bulges and uncovertebral joint spurring is noted at C5-6 and C6-7 resulting in mild bilateral foraminal narrowing at these levels. 3. Mild cervical spondylosis is noted C5-6 and C6-7. Electronically signed by: Armani Fuller MD 10/17/2017 11:00 PM EDT
[2017-10-18] MEDS: Melatonin 5 MG Tablet PO PRN ×2 (03:21→20:00)
[2017-10-18] MEDS: clonazePAM 0.5 MG Tablet PO SCH ×3 (03:22→19:59)
[2017-10-18 07:53] LABS: Baso # (Auto) 0.1 th/mm3 (0.0-0.2); Eos # (Auto) 0.1 th/mm3 (0.0-0.4); Eos % (Auto) 0.9 % (0.0-4.0); Hematocrit 45.4 % (39.0-51.0); Hemoglobin 15.4 gm/dL (13.0-17.0); Lymph # (Auto) 2.4 th/mm3 (1.0-4.8); Lymph % (Auto) 27.7 % (9.0-44.0); Mean Corpuscular HGB Conc 33.9 % (32.0-36.0); Mean Corpuscular Volume 85.7 fL (80.0-100.0); Mono # (Auto) 0.8 th/mm3 (0.0-0.9); Mono % (Auto) 9.3 % (0.0-8.0); Neut # (Auto) 5.2 th/mm3 (1.8-7.7); Neut % (Auto) 61.1 % (16.0-70.0); Platelet Count 208 th/mm3 (150-450); Red Cell Distribution Width 13.5 % (11.6-17.2); White Blood Count 8.5 th/mm3 (4.0-11.0)
[2017-10-18] MEDS: Captopril 12.5 MG Tablet PO SCH ×2 (09:28→20:00)
[2017-10-18] MEDS: Enoxaparin Inj 40 MG/0.4 ML Syringe SQ SCH ×2 (09:40→12:20)
[2017-10-18 09:47] LABS: Activated Partial Thrombo Time 28.2 sec (24.3-30.1); INR 1.1 Ratio; Prothrombin Time 11.5 sec (9.8-11.6)
--- NOTE | 2017-10-18 10:54 | P.PNONC ---
Subjective Interval history: Afebrile Patient resting comfortably in bed with father at bedside Denies any acute complaints Reports he wants his legs to be stretched out Objective Vital Signs/Intake & Output: Vital Signs 10/17/17 16:57 10/17/17 17:08 10/17/17 23:00 Temperature 98.2 F 98.1 F Pulse Rate 92 H 97 H Respiratory Rate 1 L 18 18 Blood Pressure 153/108 H 140/113 H Pulse Oximetry 96 10/18/17 00:15 10/18/17 04:17 Temperature 98.1 F 98.2 F Pulse Rate 92 H 115 H Respiratory Rate Blood Pressure 155/98 H 141/94 H Pulse Oximetry Intake & Output 10/17/17 10/18/17 10/18/17 18:59 06:59 18:59 Intake Total 150 / 150 Balance 150 / 150 Weight 116 lb 13.52 oz 117 lb 8.102 oz Intake: Oral 150 / 150 Other: # Voids 2 Weight On Admission 116 lb 13.52 oz Result Diagrams: 10/18/17 07:23 10/17/17 11:37 Laboratory Results: Laboratory Results - last 24 hr 10/17/17 10/17/17 10/17/17 11:37 11:37 11:37 WBC 7.6 RBC 5.01 Hgb 14.8 Hct 42.5 MCV 85.0 MCH 29.5 MCHC 34.7 RDW 13.6 Plt Count 211 MPV 8.8 Neut % (Auto) 61.5 Lymph % (Auto) 26.8 [place] % (Auto) 9.3 H Eos % (Auto) 1.6 Baso % (Auto) 0.8 Neut # (Auto) 4.7 Lymph # (Auto) 2.0 [place] # (Auto) 0.7 Eos # (Auto) 0.1 Baso # (Auto) 0.1 WBC Differential . Differential Comment Auto diff final PT 11.4 INR 1.1 APTT Fibrinogen Sodium 143 Potassium 3.9 Chloride 110 H Carbon Dioxide 24.0 Anion Gap 9 BUN 17 Creatinine 0.72 Estimated GFR Greater than 89 Random Glucose 71 L Calcium 8.5 Total Bilirubin 0.3 AST 19 ALT 13 Alkaline Phosphatase 70 Total Protein 6.2 L Albumin 3.5 10/18/17 10/18/17 07:23 08:54 WBC 8.5 RBC 5.30 Hgb 15.4 Hct 45.4 MCV 85.7 MCH 29.0 MCHC 33.9 RDW 13.5 Plt Count 208 MPV 9.0 Neut % (Auto) 61.1 Lymph % (Auto) 27.7 [place] % (Auto) 9.3 H Eos % (Auto) 0.9 Baso % (Auto) 1.0 Neut # (Auto) 5.2 Lymph # (Auto) 2.4 [place] # (Auto) 0.8 Eos # (Auto) 0.1 Baso # (Auto) 0.1 WBC Differential . Differential Comment Auto diff final PT 11.5 INR 1.1 APTT 28.2 Fibrinogen 405 H Sodium Potassium Chloride Carbon Dioxide Anion Gap BUN Creatinine Estimated GFR Random Glucose Calcium Total Bilirubin AST ALT Alkaline Phosphatase Total Protein Albumin Imaging Studies: Impressions Catheter Placement 10/17/17 00:00 CONCLUSION: 1. Uncomplicated line placement as above. Cervical Spine MRI 10/17/17 00:00 CONCLUSION: 1. Examination is somewhat limited due to patient motion during scanning particularly degrading the axial sequences and therefore making it very difficult to determine if there are demyelinating plaques present within the cervical cord. 2. Minimal diffuse disc bulges and uncovertebral joint spurring is noted at C5- 6 and C6-7 resulting in mild bilateral foraminal narrowing at these levels. 3. Mild cervical spondylosis is noted C5-6 and C6-7. Head MRI 10/17/17 00:00 CONCLUSION: 1. Extensive periventricular and subcortical demyelinating plaques are again noted and appears slightly worse than the previous examination in October 2016. Scattered enhancement of the periventricular and subcortical plaques is noted suggesting active demyelination. There is also a prominent new plaque within the region of the right brachium pontis measuring 15 mm and demonstrating some peripheral enhancement. A new plaque within the right midbrain is also identified and demonstrates some associated edema. The findings are consistent with interval worsening fifth multiple sclerosis. 2. No acute infarct, acute hemorrhage, midline shift or extra-axial fluid collections are noted. Thoracic Spine MRI 10/17/17 00:00 CONCLUSION: 1. The examination is limited by patient motion during scanning. There appeared to be demyelinating plaques throughout the thoracic cord at multiple levels. In order to identify the exact location of these plaques repeat scan without motion is necessary. 2. Minimal posterior osteophytic spurring is noted at T3-4 resulting in very minimal effacement of the anterior thecal sac. Medications: Active Medications Generic Name Dose Route Start Last Admin Trade Name Freq PRN Reason Stop Dose Admin Captopril 12.5 mg 10/17/17 21:00 10/18/17 09:28 Capoten PO 12.5 mg BID HARVINDER Administration Clonazepam 0.5 mg 10/17/17 20:00 10/18/17 03:22 Klonopin PO 0.5 mg Q8H HARVINDER Administration Enoxaparin Sodium 40 mg 10/17/17 09:00 10/18/17 09:40 Lovenox Inj SQ Not Given Q24H HARVINDER Melatonin 5 mg 10/17/17 21:00 10/18/17 03:21 Melatonin PO 5 mg HS PRN Administration INSOMNIA Nicotine 1 patch 10/17/17 12:00 10/18/17 09:28 Habitrol 14 Mg Patch.24 Hr T-DERMAL 1 patch DAILY HARVINDER Administration Patch Removal 1 each 10/18/17 09:00 10/18/17 09:41 Remove Old Patch T-DERMAL 1 each DAILY HARVINDER Administration Patient Own 1 each 10/17/17 21:00 10/17/17 22:34 Medication: Aubagio PO 1 each (Teriflunomide) 14mg HS HARVINDER Administration Tablet Objective Remarks: GENERAL: Young male resting in bed in no obvious distress SKIN: Warm and dry. HEAD: Normocephalic. Hard of hearing. EYES: No scleral icterus. No injection or drainage. NECK: Supple, trachea midline. No JVD or lymphadenopathy. CARDIOVASCULAR: Regular rate and rhythm without murmurs. RESPIRATORY: Clear anteriorly. Breathing unlabored at rest. GASTROINTESTINAL: Abdomen soft, non-tender, nondistended. EXTREMITIES: No cyanosis. MUSCULOSKELETAL: + Muscle wasting NEUROLOGICAL: Generalized weakness. Slurred speech. Alert and oriented. Assessment/Plan - Plan 32-year-old male with multiple sclerosis exacerbation; hematology consulted for coordination of plasma exchange 1. Patient tolerated Vas-Cath placement without difficulty. 2. Initiate plasma exchange today. The plan will be for 7 treatments, every other day. 3. Anticipate that if patient does well we will transition him to outpatient care likely next week. 4. Monitor CBC, coags, fibrinogen - Attending Statement The exam, history, and the medical decision-making described in the above note were completed with the assistance of the mid-level provider. I reviewed and agree with the findings presented. I attest that I had a [id number] encounter with the patient on the same day, and personally performed and documented my assessment and findings in the medical record. Patient still has generalized weakness. No bleeding from Vas-Cath site. He will start plasma exchange today. I have written the order for plasma exchange. Plan to do a plasma exchange every other day for 7 times. We are not able to do plasma exchange at outpatient clinic unless he is stronger and able to sit in a wheelchair.
--- NOTE | 2017-10-18 11:05 | P.PN ---
Subjective Interval history: Follow up for MS exacerbation. Patient is currently doing well. No fever or chills. No acute concerns. Physical Exam Vital signs: Vital Signs 10/17/17 16:57 10/17/17 17:08 10/17/17 23:00 Temperature 98.2 F 98.1 F Pulse Rate 92 H 97 H Respiratory Rate 1 L 18 18 Blood Pressure 153/108 H 140/113 H Pulse Oximetry 96 10/18/17 00:15 10/18/17 04:17 Temperature 98.1 F 98.2 F Pulse Rate 92 H 115 H Respiratory Rate Blood Pressure 155/98 H 141/94 H Pulse Oximetry Intake & Output 10/17/17 10/18/17 10/18/17 18:59 06:59 18:59 Intake Total 150 / 150 Balance 150 / 150 Weight 53 kg 53.3 kg Intake: Oral 150 / 150 Other: # Voids 2 Weight On Admission 53 kg Narrative: GENERAL: Alert, oriented 3, NAD. Hard of hearing. SKIN: Warm and dry. HEAD: Normocephalic. EYES: No scleral icterus. No injection or drainage. NECK: Supple, trachea midline. No JVD or lymphadenopathy. CARDIOVASCULAR: Regular rate and rhythm without murmurs, gallops, or rubs. RESPIRATORY: Breath sounds equal bilaterally. No accessory muscle use. GASTROINTESTINAL: Abdomen soft, non-tender, nondistended. MUSCULOSKELETAL: No cyanosis, or edema. BACK: Nontender without obvious deformity. No CVA tenderness. Results - Labs CBC & Chem 7: 10/18/17 07:23 10/17/17 11:37 Laboratory Results - last 24 hr 10/17/17 10/17/17 10/17/17 11:37 11:37 11:37 WBC 7.6 RBC 5.01 Hgb 14.8 Hct 42.5 MCV 85.0 MCH 29.5 MCHC 34.7 RDW 13.6 Plt Count 211 MPV 8.8 Neut % (Auto) 61.5 Lymph % (Auto) 26.8 [place] % (Auto) 9.3 H Eos % (Auto) 1.6 Baso % (Auto) 0.8 Neut # (Auto) 4.7 Lymph # (Auto) 2.0 [place] # (Auto) 0.7 Eos # (Auto) 0.1 Baso # (Auto) 0.1 WBC Differential . Differential Comment Auto diff final PT 11.4 INR 1.1 APTT Fibrinogen Sodium 143 Potassium 3.9 Chloride 110 H Carbon Dioxide 24.0 Anion Gap 9 BUN 17 Creatinine 0.72 Estimated GFR Greater than 89 Random Glucose 71 L Calcium 8.5 Total Bilirubin 0.3 AST 19 ALT 13 Alkaline Phosphatase 70 Total Protein 6.2 L Albumin 3.5 10/18/17 10/18/17 07:23 08:54 WBC 8.5 RBC 5.30 Hgb 15.4 Hct 45.4 MCV 85.7 MCH 29.0 MCHC 33.9 RDW 13.5 Plt Count 208 MPV 9.0 Neut % (Auto) 61.1 Lymph % (Auto) 27.7 [place] % (Auto) 9.3 H Eos % (Auto) 0.9 Baso % (Auto) 1.0 Neut # (Auto) 5.2 Lymph # (Auto) 2.4 [place] # (Auto) 0.8 Eos # (Auto) 0.1 Baso # (Auto) 0.1 WBC Differential . Differential Comment Auto diff final PT 11.5 INR 1.1 APTT 28.2 Fibrinogen 405 H Sodium Potassium Chloride Carbon Dioxide Anion Gap BUN Creatinine Estimated GFR Random Glucose Calcium Total Bilirubin AST ALT Alkaline Phosphatase Total Protein Albumin - Imaging Impressions Catheter Placement 10/17/17 00:00 CONCLUSION: 1. Uncomplicated line placement as above. Cervical Spine MRI 10/17/17 00:00 CONCLUSION: 1. Examination is somewhat limited due to patient motion during scanning particularly degrading the axial sequences and therefore making it very difficult to determine if there are demyelinating plaques present within the cervical cord. 2. Minimal diffuse disc bulges and uncovertebral joint spurring is noted at C5- 6 and C6-7 resulting in mild bilateral foraminal narrowing at these levels. 3. Mild cervical spondylosis is noted C5-6 and C6-7. Head MRI 10/17/17 00:00 CONCLUSION: 1. Extensive periventricular and subcortical demyelinating plaques are again noted and appears slightly worse than the previous examination in October 2016. Scattered enhancement of the periventricular and subcortical plaques is noted suggesting active demyelination. There is also a prominent new plaque within the region of the right brachium pontis measuring 15 mm and demonstrating some peripheral enhancement. A new plaque within the right midbrain is also identified and demonstrates some associated edema. The findings are consistent with interval worsening fifth multiple sclerosis. 2. No acute infarct, acute hemorrhage, midline shift or extra-axial fluid collections are noted. Thoracic Spine MRI 10/17/17 00:00 CONCLUSION: 1. The examination is limited by patient motion during scanning. There appeared to be demyelinating plaques throughout the thoracic cord at multiple levels. In order to identify the exact location of these plaques repeat scan without motion is necessary. 2. Minimal posterior osteophytic spurring is noted at T3-4 resulting in very minimal effacement of the anterior thecal sac. - Procedures Vas-Cath placement 10/17/2017 by interventional radiology. Assessment and Plan - Assessment (1) Multiple sclerosis Code(s): G35 - Multiple sclerosis Status: Chronic - Plan Mr. Yu is a 32 year old male with a history of MS who was admitted directly based on Neurologist's recommendations for Plasmapharesis. Patient has had persistent lower extremity weakness despite aggressive PT. His hearing is also worsening since he had an episode of ear infection about a month prior to this admission. Multiple sclerosis exacerbation -Neurology as well as hematology are following. -Vas-Cath was placed on 10/17/2017. First plasmapheresis scheduled for today. -After 2 treatments, patient potentially could be discharged and continue plasmapheresis in the outpatient setting. Tobacco abuse Marijuana use -Continue nicotine patch 14mg Qday. Full code. Lovenox. Full code: Possible discharge early next week.
[2017-10-18] MEDS ORDERED: Sod Chloride 0.9% Inj 1,000 ML IV.SIG PRN (11:07)
[2017-10-18] MEDS ORDERED: Heparin 10,000 UNIT/ML Vial (IV Additive) IV.SIG PRN (11:12)
[2017-10-18] MEDS: ALBUMIN HUMAN 5% IV.SIG SCH (16:55)
[2017-10-18] MEDS: Calcium Carbonate 500 MG Tablet PO PRN (16:56)
[2017-10-18] MEDS: Anticoagulant Citrate Dextrose 1,000 ML Solution EXTRACORPO PRN (16:56)
[2017-10-18] MEDS: AUBAGIO 14 MG PO SCH (20:00)
[2017-10-19] MEDS: clonazePAM 0.5 MG Tablet PO SCH ×3 (06:35→20:50)
[2017-10-19 06:52] LABS: Baso # (Auto) 0.1 th/mm3 (0.0-0.2); Baso % (Auto) 1.2 % (0.0-2.0); Eos # (Auto) 0.1 th/mm3 (0.0-0.4); Eos % (Auto) 1.5 % (0.0-4.0); Hemoglobin 14.8 gm/dL (13.0-17.0); Lymph # (Auto) 2.2 th/mm3 (1.0-4.8); Lymph % (Auto) 28.8 % (9.0-44.0); Mean Corpuscular HGB Conc 34.3 % (32.0-36.0); Mean Corpuscular Hemoglobin 29.3 pg (27.0-34.0); Mean Corpuscular Volume 85.4 fL (80.0-100.0); Mean Platelet Volume 9.6 fL (7.0-11.0); Mono # (Auto) 0.9 th/mm3 (0.0-0.9); Mono % (Auto) 11.5 % (0.0-8.0); Neut # (Auto) 4.3 th/mm3 (1.8-7.7); Platelet Count 175 th/mm3 (150-450); Red Blood Count 5.04 mil/mm3 (4.50-5.90); Red Cell Distribution Width 13.5 % (11.6-17.2); White Blood Count 7.5 th/mm3 (4.0-11.0)
[2017-10-19 07:33] LABS: Activated Partial Thrombo Time 28.6 sec (24.3-30.1); INR 1.2 Ratio; Prothrombin Time 11.9 sec (9.8-11.6)
[2017-10-19] MEDS: Captopril 12.5 MG Tablet PO SCH ×2 (08:40→20:50)
[2017-10-19] MEDS: Enoxaparin Inj 40 MG/0.4 ML Syringe SQ SCH (08:40)
--- NOTE | 2017-10-19 10:30 | P.PN ---
Subjective Interval history: Follow up for MS exacerbation. Patient is currently doing well. He reports improvement of his hearing after receiving plasmapheresis. No fever or chills. Physical Exam Vital signs: Vital Signs 10/18/17 12:23 10/18/17 17:15 10/18/17 20:00 Temperature 98.1 F 98.2 F 98.4 F Pulse Rate 99 H 104 H 103 H Respiratory Rate 16 16 16 Blood Pressure 152/88 H 128/88 151/96 H Pulse Oximetry 98 99 97 10/19/17 00:00 10/19/17 04:00 Temperature 98.5 F 97.4 F L Pulse Rate 106 H 102 H Respiratory Rate 16 16 Blood Pressure 128/94 H 116/98 H Pulse Oximetry 97 96 Intake & Output 10/18/17 10/19/17 10/19/17 18:59 06:59 18:59 Intake Total 1200 / 1200 477 / 477 Output Total 500 / 500 350 / 350 Balance 700 / 700 127 / 127 Weight 52 kg Intake: Oral 1200 / 1200 240 / 240 Oral Supplement 237 / 237 Output: Urine 500 / 500 350 / 350 Other: # Voids 2 Date of Last Bowel Movement 10/18/17 10/14/17 Narrative: GENERAL: Alert, oriented 3, NAD. Hard of hearing. SKIN: Warm and dry. HEAD: Normocephalic. EYES: No scleral icterus. No injection or drainage. NECK: Supple, trachea midline. No JVD or lymphadenopathy. CARDIOVASCULAR: Regular rate and rhythm without murmurs, gallops, or rubs. RESPIRATORY: Breath sounds equal bilaterally. No accessory muscle use. GASTROINTESTINAL: Abdomen soft, non-tender, nondistended. MUSCULOSKELETAL: No cyanosis, or edema. BACK: Nontender without obvious deformity. No CVA tenderness. Results - Labs CBC & Chem 7: 10/19/17 05:43 10/17/17 11:37 Laboratory Results - last 24 hr 10/19/17 10/19/17 05:43 05:43 WBC 7.5 RBC 5.04 Hgb 14.8 Hct 43.0 MCV 85.4 MCH 29.3 MCHC 34.3 RDW 13.5 Plt Count 175 MPV 9.6 Neut % (Auto) 57.0 Lymph % (Auto) 28.8 [place] % (Auto) 11.5 H Eos % (Auto) 1.5 Baso % (Auto) 1.2 Neut # (Auto) 4.3 Lymph # (Auto) 2.2 [place] # (Auto) 0.9 Eos # (Auto) 0.1 Baso # (Auto) 0.1 WBC Differential . Differential Comment Auto diff final PT 11.9 H INR 1.2 APTT 28.6 Fibrinogen 194 L - Procedures Vas-Cath placement 10/17/2017 by interventional radiology. Assessment and Plan - Assessment (1) Multiple sclerosis Code(s): G35 - Multiple sclerosis Status: Chronic - Plan Mr. Yu is a 32 year old male with a history of MS who was admitted directly based on Neurologist's recommendations for Plasmapharesis. Patient has had persistent lower extremity weakness despite aggressive PT. His hearing is also worsening since he had an episode of ear infection about a month prior to this admission. Multiple sclerosis exacerbation -Neurology as well as hematology are following. -Vas-Cath was placed on 10/17/2017. First plasmapheresis on 10/18/2017 -Per oncology, patient has to be strong enough to be able to sit in a wheelchair to receive outpatient plasmapheresis. -Encouraged patient to work with physical therapy. He verbalized understanding. Bilateral hearing loss -improved after plasmapheresis. Tobacco abuse Marijuana use -Continue nicotine patch 14mg Qday. Full code. Lovenox.
--- NOTE | 2017-10-19 10:30 | P.PNONC ---
Subjective Interval history: Pt resting in bed. In no acute distress. He inquires how he can gain weight. He states that he eats appropriately and has groceries accessible at home. Objective Vital Signs/Intake & Output: Vital Signs 10/18/17 12:23 10/18/17 17:15 10/18/17 20:00 Temperature 98.1 F 98.2 F 98.4 F Pulse Rate 99 H 104 H 103 H Respiratory Rate 16 16 16 Blood Pressure 152/88 H 128/88 151/96 H Pulse Oximetry 98 99 97 10/19/17 00:00 10/19/17 04:00 Temperature 98.5 F 97.4 F L Pulse Rate 106 H 102 H Respiratory Rate 16 16 Blood Pressure 128/94 H 116/98 H Pulse Oximetry 97 96 Intake & Output 10/18/17 10/19/17 10/19/17 18:59 06:59 18:59 Intake Total 1200 / 1200 477 / 477 Output Total 500 / 500 350 / 350 Balance 700 / 700 127 / 127 Weight 52 kg Intake: Oral 1200 / 1200 240 / 240 Oral Supplement 237 / 237 Output: Urine 500 / 500 350 / 350 Other: # Voids 2 Date of Last Bowel Movement 10/18/17 10/14/17 Result Diagrams: 10/19/17 05:43 10/17/17 11:37 Laboratory Results: Laboratory Results - last 24 hr 10/19/17 10/19/17 05:43 05:43 WBC 7.5 RBC 5.04 Hgb 14.8 Hct 43.0 MCV 85.4 MCH 29.3 MCHC 34.3 RDW 13.5 Plt Count 175 MPV 9.6 Neut % (Auto) 57.0 Lymph % (Auto) 28.8 [place] % (Auto) 11.5 H Eos % (Auto) 1.5 Baso % (Auto) 1.2 Neut # (Auto) 4.3 Lymph # (Auto) 2.2 [place] # (Auto) 0.9 Eos # (Auto) 0.1 Baso # (Auto) 0.1 WBC Differential . Differential Comment Auto diff final PT 11.9 H INR 1.2 APTT 28.6 Fibrinogen 194 L Medications: Active Medications Generic Name Dose Route Start Last Admin Trade Name Freq PRN Reason Stop Dose Admin Captopril 12.5 mg 10/17/17 21:00 10/19/17 08:40 Capoten PO 12.5 mg BID HARVINDER Administration Clonazepam 0.5 mg 10/17/17 20:00 10/19/17 06:35 Klonopin PO Not Given Q8H HARVINDER Enoxaparin Sodium 40 mg 10/17/17 09:00 10/19/17 08:40 Lovenox Inj SQ 40 mg Q24H HARVINDER Administration Albumin Human 1,900 mls @ 250 mls/hr 10/18/17 12:00 10/18/17 16:55 Alburx 5% Inj IV.SIG 10/30/17 19:35 250 mls/hr Q48H HARVINDER Administration Melatonin 5 mg 10/17/17 21:00 10/18/17 20:00 Melatonin PO 5 mg HS PRN Administration INSOMNIA Nicotine 1 patch 10/17/17 12:00 10/19/17 08:39 Habitrol 14 Mg Patch.24 Hr T-DERMAL 1 patch DAILY HARVINDER Administration Patch Removal 1 each 10/18/17 09:00 10/19/17 08:45 Remove Old Patch T-DERMAL 1 each DAILY HARVINDER Administration Patient Own 1 each 10/17/17 21:00 10/18/17 20:00 Medication: Aubagio PO 1 each (Teriflunomide) 14mg HS HARVINDER Administration Tablet Sodium Citrate 1,000 ml 10/18/17 11:08 10/18/17 16:56 Acd-A Solution EXTRACORPO 10/30/17 23:59 1,000 ml UNSCH PRN Administration APHERESIS Temazepam 15 mg 10/17/17 21:00 10/19/17 02:52 Restoril PO 15 mg HS PRN Administration INSOMNIA Objective Remarks: GENERAL: Young male patient. Lying in bed in no obvious distress SKIN: Warm and dry. HEAD: Normocephalic. Hard of hearing. EYES: No scleral icterus. No injection or drainage. NECK: Supple, trachea midline. No JVD or lymphadenopathy. CARDIOVASCULAR: Regular rate and rhythm without murmurs. RESPIRATORY: Anterior breath sounds clear, equal bilaterally. GASTROINTESTINAL: Abdomen flat, soft, non-tender, nondistended. EXTREMITIES: No cyanosis or edema. MUSCULOSKELETAL: + Muscle wasting, decreased tone. NEUROLOGICAL: Generalized weakness. Slurred speech. Alert and oriented. Assessment/Plan - Plan 32-year-old male with multiple sclerosis exacerbation; hematology consulted for coordination of plasma exchange 1. Patient tolerated Vas-Cath placement without difficulty. 2. Plasma exchange initiated yesterday. Plan is for 7 total treatments, every other day. 3. Anticipate that if patient does well we will transition him to outpatient care. We will consult case management for assistance with transportation arrangements to the clinic, likely next week. 4. Monitor CBC, coags, fibrinogen - Attending Statement The exam, history, and the medical decision-making described in the above note were completed with the assistance of the mid-level provider. I reviewed and agree with the findings presented. I attest that I had a [id number] encounter with the patient on the same day, and personally performed and documented my assessment and findings in the medical record. Patient tolerated day 1 the plasmapheresis very well. His CBC is stable. Fibrinogen trended down slightly. Continue monitor CBC and coagulation study. Plan for Day 2 of plasmapheresis tomorrow.
--- NOTE | 2017-10-19 10:41 | P.PNNEU ---
Subjective Subjective Comments: No acute events reported Had first plasmapheresis yesterday and tolerated it Active Medications: Active Medications Generic Name Dose Route Start Last Admin Trade Name Freq PRN Reason Stop Dose Admin Acetaminophen 650 mg 10/17/17 08:02 Tylenol PO Q4H PRN Headache, fever, pain 1-4 Al Hydroxide/Mg Hydroxide 30 ml 10/17/17 08:02 Milk Of Magnesia Liq PO Q12H PRN Mild Constipation Bisacodyl 10 mg 10/17/17 08:02 Dulcolax Supp RECTAL DAILY PRN SEVERE CONSITIPATION Captopril 12.5 mg 10/17/17 21:00 10/19/17 08:40 Capoten PO 12.5 mg BID HARVINDER Administration Clonazepam 0.5 mg 10/17/17 20:00 10/19/17 06:35 Klonopin PO Not Given Q8H HARVINDER Diphenhydramine HCl 25 mg 10/18/17 11:02 Benadryl Inj IV.PUSH 10/30/17 23:59 UNSCH PRN ALLERGIC REACTION Enoxaparin Sodium 40 mg 10/17/17 09:00 10/19/17 08:40 Lovenox Inj SQ 40 mg Q24H HARVINDER Administration Heparin Sodium (Porcine) 5,000 unit 10/18/17 11:12 Heparin Inj IV.SIG 10/30/17 23:59 UNSCH PRN FLUSH AFTER USING IV ACCESS Albumin Human 1,900 mls @ 250 mls/hr 10/18/17 12:00 10/18/17 16:55 Alburx 5% Inj IV.SIG 10/30/17 19:35 250 mls/hr Q48H HARVINDER Administration Sodium Chloride 1,000 mls @ 0 mls/hr 10/18/17 11:07 Ns Inj IV.SIG 10/30/17 23:59 .Q0M PRN APHERESIS As Directed Lactulose 30 ml 10/17/17 08:02 Lactulose Liq PO DAILY PRN SEVERE CONSITIPATION Melatonin 5 mg 10/17/17 21:00 10/18/17 20:00 Melatonin PO 5 mg HS PRN Administration INSOMNIA Nicotine 1 patch 10/17/17 12:00 10/19/17 08:39 Habitrol 14 Mg Patch.24 Hr T-DERMAL 1 patch DAILY HARVINDER Administration Ondansetron HCl 4 mg 10/17/17 18:21 Zofran Odt PO Q6H PRN NAUSEA OR VOMITING Patch Removal 1 each 10/18/17 09:00 10/19/17 08:45 Remove Old Patch T-DERMAL 1 each DAILY HARVINDER Administration Patient Own 1 each 10/17/17 21:00 10/18/17 20:00 Medication: Aubagio PO 1 each (Teriflunomide) 14mg HS HARVINDER Administration Tablet Sennosides 17.2 mg 10/17/17 08:02 Senokot PO Q12H PRN Moderate Constipation Sodium Chloride 10 ml 10/18/17 11:09 Ns Flush IV.FLUSH 10/30/17 23:59 UNSCH PRN FLUSH AFTER USING IV ACCESS Sodium Citrate 1,000 ml 10/18/17 11:08 10/18/17 16:56 Acd-A Solution EXTRACORPO 10/30/17 23:59 1,000 ml UNSCH PRN Administration APHERESIS Temazepam 15 mg 10/17/17 21:00 10/19/17 02:52 Restoril PO 15 mg HS PRN Administration INSOMNIA Allergies/Adverse Reactions: Allergies Allergy/AdvReac Type Severity Reaction Status Date / Time No Known Allergies Allergy Uncoded 11/22/16 20:31 Physical Exam Vital signs: Vital Signs 10/18/17 12:23 10/18/17 17:15 10/18/17 20:00 Temperature 98.1 F 98.2 F 98.4 F Pulse Rate 99 H 104 H 103 H Respiratory Rate 16 16 16 Blood Pressure 152/88 H 128/88 151/96 H Pulse Oximetry 98 99 97 10/19/17 00:00 10/19/17 04:00 Temperature 98.5 F 97.4 F L Pulse Rate 106 H 102 H Respiratory Rate 16 16 Blood Pressure 128/94 H 116/98 H Pulse Oximetry 97 96 Intake & Output 10/18/17 10/19/17 10/19/17 18:59 06:59 18:59 Intake Total 1200 / 1200 477 / 477 Output Total 500 / 500 350 / 350 Balance 700 / 700 127 / 127 Weight 52 kg Intake: Oral 1200 / 1200 240 / 240 Oral Supplement 237 / 237 Output: Urine 500 / 500 350 / 350 Other: # Voids 2 Date of Last Bowel Movement 10/18/17 10/14/17 - Routine Neurological Exam alert, speech dysarthric. Hearing diminished CN --PERRL, EOM intact MOTOR 4/5 BUE, 2/5 BLE Objective Laboratory Results - last 24 hr 10/19/17 10/19/17 05:43 05:43 WBC 7.5 RBC 5.04 Hgb 14.8 Hct 43.0 MCV 85.4 MCH 29.3 MCHC 34.3 RDW 13.5 Plt Count 175 MPV 9.6 Neut % (Auto) 57.0 Lymph % (Auto) 28.8 [place] % (Auto) 11.5 H Eos % (Auto) 1.5 Baso % (Auto) 1.2 Neut # (Auto) 4.3 Lymph # (Auto) 2.2 [place] # (Auto) 0.9 Eos # (Auto) 0.1 Baso # (Auto) 0.1 WBC Differential . Differential Comment Auto diff final PT 11.9 H INR 1.2 APTT 28.6 Fibrinogen 194 L Review/Management - Diagnosis (1) Multiple sclerosis exacerbation Code(s): G35 - Multiple sclerosis Status: Acute Current Visit: Yes - Review/Management Plan: continue plasmapheresis every other day for total of 7
[2017-10-19] MEDS: Melatonin 5 MG Tablet PO PRN (20:50)
[2017-10-19] MEDS: AUBAGIO 14 MG PO SCH (20:50)
[2017-10-20] MEDS: clonazePAM 0.5 MG Tablet PO SCH ×3 (04:18→21:44)
[2017-10-20 07:31] LABS: Activated Partial Thrombo Time 27.1 sec (24.3-30.1); INR 1.1 Ratio; Prothrombin Time 10.7 sec (9.8-11.6)
[2017-10-20 07:35] LABS: Baso # (Auto) 0.1 th/mm3 (0.0-0.2); Eos # (Auto) 0.1 th/mm3 (0.0-0.4); Eos % (Auto) 1.2 % (0.0-4.0); Hematocrit 43.8 % (39.0-51.0); Hemoglobin 14.9 gm/dL (13.0-17.0); Lymph # (Auto) 1.9 th/mm3 (1.0-4.8); Lymph % (Auto) 19.5 % (9.0-44.0); Mean Corpuscular Hemoglobin 29.2 pg (27.0-34.0); Mean Corpuscular Volume 85.9 fL (80.0-100.0); Mean Platelet Volume 9.5 fL (7.0-11.0); Mono # (Auto) 1.2 th/mm3 (0.0-0.9); Mono % (Auto) 12.4 % (0.0-8.0); Neut # (Auto) 6.3 th/mm3 (1.8-7.7); Neut % (Auto) 65.9 % (16.0-70.0); Platelet Count 174 th/mm3 (150-450); Red Cell Distribution Width 13.4 % (11.6-17.2); White Blood Count 9.6 th/mm3 (4.0-11.0)
--- NOTE | 2017-10-20 08:59 | P.PN ---
Subjective Interval history: Follow up for MS exacerbation. Patient is resting in bed. Father is at bedside. Father feels that patient is not getting any stronger. He does not believe patient can go home to continue outpatient Plasmapheresis. No fever, chills. Physical Exam Vital signs: Vital Signs 10/19/17 12:00 10/19/17 15:45 10/19/17 20:00 Temperature 97.6 F 98.4 F 97.4 F L Pulse Rate 123 H 118 H 124 H Respiratory Rate 16 16 16 Blood Pressure 145/90 H 141/84 H 149/90 H Pulse Oximetry 96 96 10/20/17 00:00 10/20/17 04:00 10/20/17 07:46 Temperature 98.4 F 98.5 F 98.6 F Pulse Rate 122 H 107 H 115 H Respiratory Rate 16 16 18 Blood Pressure 104/83 141/96 H 122/98 H Pulse Oximetry 97 97 96 Intake & Output 10/19/17 10/20/17 10/20/17 18:59 06:59 18:59 Intake Total 1320 / 1320 240 / 240 Output Total 850 / 850 250 / 250 Balance 470 / 470 -10 / -10 Weight 52.5 kg Intake: Oral 1320 / 1320 240 / 240 Output: Urine 850 / 850 250 / 250 Other: # Incontinent Voids 1 Date of Last Bowel Movement 10/14/17 10/19/17 10/19/17 Narrative: GENERAL: Alert, oriented 3, NAD. Hard of hearing. SKIN: Warm and dry. HEAD: Normocephalic. EYES: No scleral icterus. No injection or drainage. NECK: Supple, trachea midline. No JVD or lymphadenopathy. CARDIOVASCULAR: Regular rate and rhythm without murmurs, gallops, or rubs. RESPIRATORY: Breath sounds equal bilaterally. No accessory muscle use. GASTROINTESTINAL: Abdomen soft, non-tender, nondistended. MUSCULOSKELETAL: No cyanosis, or edema. BACK: Nontender without obvious deformity. No CVA tenderness. Results - Labs CBC & Chem 7: 10/20/17 05:40 10/17/17 11:37 Laboratory Results - last 24 hr 10/20/17 10/20/17 05:40 05:40 WBC 9.6 RBC 5.10 Hgb 14.9 Hct 43.8 MCV 85.9 MCH 29.2 MCHC 34.0 RDW 13.4 Plt Count 174 MPV 9.5 Neut % (Auto) 65.9 Lymph % (Auto) 19.5 [place] % (Auto) 12.4 H Eos % (Auto) 1.2 Baso % (Auto) 1.0 Neut # (Auto) 6.3 Lymph # (Auto) 1.9 [place] # (Auto) 1.2 H Eos # (Auto) 0.1 Baso # (Auto) 0.1 WBC Differential . Differential Comment Auto diff final PT 10.7 INR 1.1 APTT 27.1 Fibrinogen 339 - Procedures Vas-Cath placement 10/17/2017 by interventional radiology. Assessment and Plan - Assessment (1) Multiple sclerosis Code(s): G35 - Multiple sclerosis Status: Chronic - Plan Mr. Yu is a 32 year old male with a history of MS who was admitted directly based on Neurologist's recommendations for Plasmapharesis. Patient has had persistent lower extremity weakness despite aggressive PT. His hearing is also worsening since he had an episode of ear infection about a month prior to this admission. Multiple sclerosis exacerbation -Neurology as well as hematology are following. Plan is to give 7 treatments every other day. -Vas-Cath was placed on 10/17/2017. First plasmapheresis on 10/18/2017. Second treatment today 10/20/2017. -Per oncology, patient has to be strong enough to be able to sit in a wheelchair to receive outpatient plasmapheresis. -Encouraged patient to work with physical therapy. He verbalized understanding. Bilateral hearing loss - somewhat improved. Tobacco abuse Marijuana use -Continue nicotine patch 14mg Qday. Full code. Lovenox. Discharge: Patient will likely stay until all 7 treatments are completed on 10/30.
[2017-10-20] MEDS: Enoxaparin Inj 40 MG/0.4 ML Syringe SQ SCH (09:57)
[2017-10-20] MEDS: Captopril 12.5 MG Tablet PO SCH ×2 (09:57→21:44)
--- NOTE | 2017-10-20 11:33 | P.PNONC ---
Subjective Interval history: Patient resting comfortably in bed, in no acute distress. His mother is at the bedside feeding him a banana. He has no new complaints at this time. He is awaiting plasmapheresis today. Objective Vital Signs/Intake & Output: Vital Signs 10/19/17 12:00 10/19/17 15:45 10/19/17 20:00 Temperature 97.6 F 98.4 F 97.4 F L Pulse Rate 123 H 118 H 124 H Respiratory Rate 16 16 16 Blood Pressure 145/90 H 141/84 H 149/90 H Pulse Oximetry 96 96 10/20/17 00:00 10/20/17 04:00 10/20/17 07:46 Temperature 98.4 F 98.5 F 98.6 F Pulse Rate 122 H 107 H 115 H Respiratory Rate 16 16 18 Blood Pressure 104/83 141/96 H 122/98 H Pulse Oximetry 97 97 96 Intake & Output 10/19/17 10/20/17 10/20/17 18:59 06:59 18:59 Intake Total 1320 / 1320 240 / 240 Output Total 850 / 850 250 / 250 Balance 470 / 470 -10 / -10 Weight 52.5 kg Intake: Oral 1320 / 1320 240 / 240 Output: Urine 850 / 850 250 / 250 Other: # Incontinent Voids 1 Date of Last Bowel Movement 10/14/17 10/19/17 10/19/17 Result Diagrams: 10/20/17 05:40 10/17/17 11:37 Laboratory Results: Laboratory Results - last 24 hr 10/20/17 10/20/17 05:40 05:40 WBC 9.6 RBC 5.10 Hgb 14.9 Hct 43.8 MCV 85.9 MCH 29.2 MCHC 34.0 RDW 13.4 Plt Count 174 MPV 9.5 Neut % (Auto) 65.9 Lymph % (Auto) 19.5 [place] % (Auto) 12.4 H Eos % (Auto) 1.2 Baso % (Auto) 1.0 Neut # (Auto) 6.3 Lymph # (Auto) 1.9 [place] # (Auto) 1.2 H Eos # (Auto) 0.1 Baso # (Auto) 0.1 WBC Differential . Differential Comment Auto diff final PT 10.7 INR 1.1 APTT 27.1 Fibrinogen 339 Medications: Active Medications Generic Name Dose Route Start Last Admin Trade Name Freq PRN Reason Stop Dose Admin Captopril 12.5 mg 10/17/17 21:00 10/20/17 09:57 Capoten PO 12.5 mg BID HARVINDER Administration Clonazepam 0.5 mg 10/17/17 20:00 10/20/17 04:18 Klonopin PO 0.5 mg Q8H HARVINDER Administration Enoxaparin Sodium 40 mg 10/17/17 09:00 10/20/17 09:57 Lovenox Inj SQ 40 mg Q24H HARVINDER Administration Albumin Human 1,900 mls @ 250 mls/hr 10/18/17 12:00 10/18/17 16:55 Alburx 5% Inj IV.SIG 10/30/17 19:35 250 mls/hr Q48H HARVINDER Administration Melatonin 5 mg 10/17/17 21:00 10/19/17 20:50 Melatonin PO 5 mg HS PRN Administration INSOMNIA Nicotine 1 patch 10/17/17 12:00 10/20/17 09:57 Habitrol 14 Mg Patch.24 Hr T-DERMAL 1 patch DAILY HARVINDER Administration Patch Removal 1 each 10/18/17 09:00 10/20/17 09:57 Remove Old Patch T-DERMAL 1 each DAILY HARVINDER Administration Patient Own 1 each 10/17/17 21:00 10/19/17 20:50 Medication: Aubagio PO 1 each (Teriflunomide) 14mg HS HARVINDER Administration Tablet Sodium Citrate 1,000 ml 10/18/17 11:08 10/18/17 16:56 Acd-A Solution EXTRACORPO 10/30/17 23:59 1,000 ml UNSCH PRN Administration APHERESIS Temazepam 15 mg 10/17/17 21:00 10/19/17 02:52 Restoril PO 15 mg HS PRN Administration INSOMNIA Objective Remarks: GENERAL: Young male patient. Lying in bed in no acute distress SKIN: Warm and dry. HEAD: Normocephalic. Hard of hearing. EYES: No scleral icterus. No injection or drainage. NECK: Supple, trachea midline. CARDIOVASCULAR: Regular rate and rhythm without murmurs. RESPIRATORY: Anterior breath sounds clear, equal bilaterally. GASTROINTESTINAL: Abdomen flat, soft, non-tender, nondistended. EXTREMITIES: No cyanosis or edema. MUSCULOSKELETAL: + Muscle wasting, decreased tone. NEUROLOGICAL: Generalized weakness. Slurred speech. Alert and oriented. Hard of hearing Assessment/Plan - Plan 32-year-old male with multiple sclerosis exacerbation; hematology consulted for coordination of plasma exchange 1. Patient tolerated Vas-Cath placement without difficulty. 2. Plasma exchange initiated on 10/18/2017. Plan is for 7 total treatments, every other day. Patient scheduled for second treatment today. 3. Monitor CBC, coags, fibrinogen - Attending Statement The exam, history, and the medical decision-making described in the above note were completed with the assistance of the mid-level provider. I reviewed and agree with the findings presented. I attest that I had a [id number] encounter with the patient on the same day, and personally performed and documented my assessment and findings in the medical record. No CP/SOB. No bleeding. Plan for #2/7 plasmapheresis today. Monitor labs.
[2017-10-20] MEDS: Anticoagulant Citrate Dextrose 1,000 ML Solution EXTRACORPO PRN (12:00)
[2017-10-20] MEDS: Calcium Carbonate 500 MG Tablet PO PRN ×2 (12:30→12:51)
[2017-10-20] MEDS: ALBUMIN HUMAN 5% IV.SIG SCH (15:17)
[2017-10-20] MEDS: AUBAGIO 14 MG PO SCH (21:44)
[2017-10-20] MEDS: Melatonin 5 MG Tablet PO PRN (21:47)
[2017-10-21] MEDS: clonazePAM 0.5 MG Tablet PO SCH ×3 (04:26→20:06)
[2017-10-21 09:04] LABS: Baso # (Auto) 0.1 th/mm3 (0.0-0.2); Eos # (Auto) 0.1 th/mm3 (0.0-0.4); Eos % (Auto) 0.9 % (0.0-4.0); Hemoglobin 15.2 gm/dL (13.0-17.0); Lymph # (Auto) 2.6 th/mm3 (1.0-4.8); Lymph % (Auto) 24.9 % (9.0-44.0); Mean Corpuscular HGB Conc 33.7 % (32.0-36.0); Mean Corpuscular Hemoglobin 29.3 pg (27.0-34.0); Mean Corpuscular Volume 86.8 fL (80.0-100.0); Mean Platelet Volume 9.6 fL (7.0-11.0); Mono # (Auto) 1.2 th/mm3 (0.0-0.9); Neut # (Auto) 6.6 th/mm3 (1.8-7.7); Neut % (Auto) 62.2 % (16.0-70.0); Platelet Count 176 th/mm3 (150-450); Red Blood Count 5.18 mil/mm3 (4.50-5.90); Red Cell Distribution Width 13.5 % (11.6-17.2); White Blood Count 10.6 th/mm3 (4.0-11.0)
[2017-10-21 09:10] LABS: Activated Partial Thrombo Time 30.6 sec (24.3-30.1); INR 1.1 Ratio; Prothrombin Time 11.6 sec (9.8-11.6)
[2017-10-21] MEDS: Enoxaparin Inj 40 MG/0.4 ML Syringe SQ SCH (09:45)
[2017-10-21] MEDS: Captopril 12.5 MG Tablet PO SCH ×2 (09:45→20:06)
--- NOTE | 2017-10-21 11:53 | P.PNONC ---
Subjective Interval history: Patient lying in bed, in no acute distress. He reports his plasmapheresis went well yesterday. He states he feels like his hearing is "a little better". He has no new complaints at this time. Objective Vital Signs/Intake & Output: Vital Signs 10/20/17 17:00 10/20/17 20:00 10/21/17 00:00 Temperature 97.8 F 98.7 F 98.6 F Pulse Rate 112 H 116 H 126 H Respiratory Rate 20 18 17 Blood Pressure 140/80 140/92 H 134/93 H Pulse Oximetry 98 97 96 10/21/17 04:20 10/21/17 08:20 Temperature 98.6 F 98.1 F Pulse Rate 115 H 123 H Respiratory Rate 16 16 Blood Pressure 133/89 154/96 H Pulse Oximetry 97 Intake & Output 10/20/17 10/21/17 10/21/17 18:59 06:59 18:59 Intake Total 300 / 300 350 / 350 Output Total 1000 / 1000 1450 / 1450 Balance -700 / -700 -1100 / -1100 Weight 53 kg Intake: Oral 300 / 300 350 / 350 Output: Urine 1000 / 1000 1450 / 1450 Other: Date of Last Bowel Movement 10/19/17 10/20/17 Result Diagrams: 10/21/17 07:53 10/17/17 11:37 Laboratory Results: Laboratory Results - last 24 hr 10/21/17 10/21/17 07:53 07:53 WBC 10.6 RBC 5.18 Hgb 15.2 Hct 45.0 MCV 86.8 MCH 29.3 MCHC 33.7 RDW 13.5 Plt Count 176 MPV 9.6 Neut % (Auto) 62.2 Lymph % (Auto) 24.9 [place] % (Auto) 11.0 H Eos % (Auto) 0.9 Baso % (Auto) 1.0 Neut # (Auto) 6.6 Lymph # (Auto) 2.6 [place] # (Auto) 1.2 H Eos # (Auto) 0.1 Baso # (Auto) 0.1 WBC Differential . Differential Comment Auto diff final PT 11.6 INR 1.1 APTT 30.6 H Fibrinogen 322 Medications: Active Medications Generic Name Dose Route Start Last Admin Trade Name Freq PRN Reason Stop Dose Admin Captopril 12.5 mg 10/17/17 21:00 10/20/17 21:44 Capoten PO 12.5 mg BID HARVINDER Administration Clonazepam 0.5 mg 10/17/17 20:00 10/21/17 04:26 Klonopin PO 0.5 mg Q8H HARVINDER Administration Enoxaparin Sodium 40 mg 10/17/17 09:00 10/20/17 09:57 Lovenox Inj SQ 40 mg Q24H HARVINDER Administration Albumin Human 1,900 mls @ 250 mls/hr 10/18/17 12:00 10/20/17 15:17 Alburx 5% Inj IV.SIG 10/30/17 19:35 250 mls/hr Q48H HARVINDER Administration Melatonin 5 mg 10/17/17 21:00 10/20/17 21:47 Melatonin PO 5 mg HS PRN Administration INSOMNIA Nicotine 1 patch 10/17/17 12:00 10/20/17 09:57 Habitrol 14 Mg Patch.24 Hr T-DERMAL 1 patch DAILY HARVINDER Administration Patch Removal 1 each 10/18/17 09:00 10/20/17 09:57 Remove Old Patch T-DERMAL 1 each DAILY HARVINDER Administration Patient Own 1 each 10/17/17 21:00 10/20/17 21:44 Medication: Aubagio PO 1 each (Teriflunomide) 14mg HS HARVINDER Administration Tablet Sodium Citrate 1,000 ml 10/18/17 11:08 10/20/17 12:00 Acd-A Solution EXTRACORPO 10/30/17 23:59 1,000 ml UNSCH PRN Administration APHERESIS Temazepam 15 mg 10/17/17 21:00 10/19/17 02:52 Restoril PO 15 mg HS PRN Administration INSOMNIA Objective Remarks: GENERAL: Cachectic young male patient. Lying in bed in no acute distress SKIN: Warm and dry. HEAD: Normocephalic. Hard of hearing. EYES: No scleral icterus. No injection or drainage. NECK: Supple, trachea midline. CARDIOVASCULAR: Regular rate and rhythm without murmurs. RESPIRATORY: Anterior breath sounds clear, equal bilaterally. GASTROINTESTINAL: Abdomen flat, soft, non-tender, nondistended. EXTREMITIES: No cyanosis or edema. MUSCULOSKELETAL: + Muscle wasting, decreased tone. NEUROLOGICAL: Alert and oriented. Hard of hearing Assessment/Plan - Plan 32-year-old male with multiple sclerosis exacerbation; hematology consulted for coordination of plasma exchange 1. Plasma exchange initiated on 10/18/2017. Plan is for 7 total treatments, every other day. Patient received second treatment yesterday, subjectively reports it went well and he feels his hearing is a little better. 2. Monitor CBC, coags, fibrinogen. 3. Continue supportive care. - Attending Statement The exam, history, and the medical decision-making described in the above note were completed with the assistance of the mid-level provider. I reviewed and agree with the findings presented. I attest that I had a [id number] encounter with the patient on the same day, and personally performed and documented my assessment and findings in the medical record. Patient has completed 2 plasmapheresis. He feels a little better overall. He however is still very weak. CBC and coagulations are stable today. He will have plasma pheresis #3 tomorrow.
--- NOTE | 2017-10-21 17:08 | P.PNIM ---
Subjective Interval history: 7-9 Follow up for MS exacerbation. Patient is resting in bed. Father is at bedside. Father feels that patient is not getting any stronger. He does not believe patient can go home to continue outpatient Plasmapheresis. No fever, chills. 7-10 CONTINUING ON EVERY OTHER DAY PLASMAPHERESIS. FATHER STATES HE CAN HEAR BETTER- VERY SLOW IMPROVEMENT CONTINUE PT AND OT DAILY Physical Exam Vital signs: Vital Signs 10/20/17 20:00 10/21/17 00:00 10/21/17 04:20 Temperature 98.7 F 98.6 F 98.6 F Pulse Rate 116 H 126 H 115 H Respiratory Rate 18 17 16 Blood Pressure 140/92 H 134/93 H 133/89 Pulse Oximetry 97 96 10/21/17 08:20 10/21/17 12:00 Temperature 98.1 F 98.4 F Pulse Rate 123 H 120 H Respiratory Rate 16 16 Blood Pressure 154/96 H 146/92 H Pulse Oximetry 97 97 Intake & Output 10/20/17 10/21/17 10/21/17 18:59 06:59 18:59 Intake Total 300 / 300 350 / 350 Output Total 1000 / 1000 1450 / 1450 Balance -700 / -700 -1100 / -1100 Weight 53 kg Intake: Oral 300 / 300 350 / 350 Output: Urine 1000 / 1000 1450 / 1450 Other: Date of Last Bowel Movement 10/19/17 10/20/17 Narrative: GENERAL: Alert, oriented 3, NAD. Hard of hearing. SKIN: Warm and dry. HEAD: Normocephalic. ATRAUMATIC EYES: No scleral icterus. No injection or drainage. NECK: Supple, trachea midline. No JVD or lymphadenopathy. CARDIOVASCULAR: Regular rate and rhythm without murmurs, gallops, or rubs. S1, S2 NO S3 OR S4 RESPIRATORY: Breath sounds equal bilaterally. No accessory muscle use. GASTROINTESTINAL: Abdomen soft, non-tender, nondistended. MUSCULOSKELETAL: No cyanosis, or edema. GENERALIZED WEAKNESS BACK: Nontender without obvious deformity. No CVA tenderness. Results - Labs CBC & Chem 7: 10/21/17 07:53 10/17/17 11:37 Laboratory Results - last 24 hr 10/21/17 10/21/17 07:53 07:53 WBC 10.6 RBC 5.18 Hgb 15.2 Hct 45.0 MCV 86.8 MCH 29.3 MCHC 33.7 RDW 13.5 Plt Count 176 MPV 9.6 Neut % (Auto) 62.2 Lymph % (Auto) 24.9 [place] % (Auto) 11.0 H Eos % (Auto) 0.9 Baso % (Auto) 1.0 Neut # (Auto) 6.6 Lymph # (Auto) 2.6 [place] # (Auto) 1.2 H Eos # (Auto) 0.1 Baso # (Auto) 0.1 WBC Differential . Differential Comment Auto diff final PT 11.6 INR 1.1 APTT 30.6 H Fibrinogen 322 - Imaging ITS Impressions Catheter Placement 10/17/17 00:00 CONCLUSION: 1. Uncomplicated line placement as above. Cervical Spine MRI 10/17/17 00:00 CONCLUSION: 1. Examination is somewhat limited due to patient motion during scanning particularly degrading the axial sequences and therefore making it very difficult to determine if there are demyelinating plaques present within the cervical cord. 2. Minimal diffuse disc bulges and uncovertebral joint spurring is noted at C5- 6 and C6-7 resulting in mild bilateral foraminal narrowing at these levels. 3. Mild cervical spondylosis is noted C5-6 and C6-7. Head MRI 10/17/17 00:00 CONCLUSION: 1. Extensive periventricular and subcortical demyelinating plaques are again noted and appears slightly worse than the previous examination in October 2016. Scattered enhancement of the periventricular and subcortical plaques is noted suggesting active demyelination. There is also a prominent new plaque within the region of the right brachium pontis measuring 15 mm and demonstrating some peripheral enhancement. A new plaque within the right midbrain is also identified and demonstrates some associated edema. The findings are consistent with interval worsening fifth multiple sclerosis. 2. No acute infarct, acute hemorrhage, midline shift or extra-axial fluid collections are noted. Thoracic Spine MRI 10/17/17 00:00 CONCLUSION: 1. The examination is limited by patient motion during scanning. There appeared to be demyelinating plaques throughout the thoracic cord at multiple levels. In order to identify the exact location of these plaques repeat scan without motion is necessary. 2. Minimal posterior osteophytic spurring is noted at T3-4 resulting in very minimal effacement of the anterior thecal sac. - Procedures Vas-Cath placement 10/17/2017 by interventional radiology. Assessment and Plan - Assessment (1) Multiple sclerosis Code(s): G35 - Multiple sclerosis Status: Chronic - Plan Mr. Yu is a 32 year old male with a history of MS who was admitted directly based on Neurologist's recommendations for Plasmapharesis. Patient has had persistent lower extremity weakness despite aggressive PT. His hearing is also worsening since he had an episode of ear infection about a month prior to this admission. Multiple sclerosis exacerbation -Neurology as well as hematology are following. Plan is to give 7 treatments every other day. -Vas-Cath was placed on 10/17/2017. First plasmapheresis on 10/18/2017. Second treatment today 10/20/2017. -Per oncology, patient has to be strong enough to be able to sit in a wheelchair to receive outpatient plasmapheresis. -Encouraged patient to work with physical therapy. He verbalized understanding. Bilateral hearing loss - somewhat improved. Tobacco abuse Marijuana use -Continue nicotine patch 14mg Qday. Full code. Lovenox. Discharge: Patient will likely stay until all 7 treatments are completed on 10/30. Code Status: FULL CODE Discussed Condition With: RN AND PT AND FAMILY AND CM Discharge Planning: ONCE DONE WITH PLASMAPHERESIS
[2017-10-21] MEDS: Melatonin 5 MG Tablet PO PRN (20:05)
[2017-10-21] MEDS: AUBAGIO 14 MG PO SCH (20:05)
[2017-10-22] MEDS: clonazePAM 0.5 MG Tablet PO SCH ×3 (04:12→20:13)
[2017-10-22 08:11] LABS: Baso # (Auto) 0.1 th/mm3 (0.0-0.2); Baso % (Auto) 0.7 % (0.0-2.0); Eos # (Auto) 0.1 th/mm3 (0.0-0.4); Eos % (Auto) 0.6 % (0.0-4.0); Hematocrit 43.3 % (39.0-51.0); Hemoglobin 14.7 gm/dL (13.0-17.0); Lymph % (Auto) 19.6 % (9.0-44.0); Mean Corpuscular Hemoglobin 29.7 pg (27.0-34.0); Mean Corpuscular Volume 87.4 fL (80.0-100.0); Mean Platelet Volume 9.4 fL (7.0-11.0); Mono # (Auto) 1.3 th/mm3 (0.0-0.9); Mono % (Auto) 12.6 % (0.0-8.0); Neut # (Auto) 6.7 th/mm3 (1.8-7.7); Neut % (Auto) 66.5 % (16.0-70.0); Platelet Count 172 th/mm3 (150-450); Red Blood Count 4.95 mil/mm3 (4.50-5.90); Red Cell Distribution Width 13.7 % (11.6-17.2); White Blood Count 10.1 th/mm3 (4.0-11.0)
[2017-10-22 08:36] LABS: Albumin 3.7 g/dL (3.4-5.0); Anion Gap 9 meq/L (5-15); Aspartate Aminotransferase 18 U/L (15-37); Blood Urea Nitrogen 13 mg/dL (7-18); Calcium 9.1 mg/dL (8.5-10.1); Carbon Dioxide 24.5 meq/L (21.0-32.0); Chloride 106 meq/L (98-107); Glomerular Filtration Rate Greater Than 89 mL/min (>89); Glucose,Random 79 mg/dL (74-106); Magnesium 2.4 mg/dL (1.5-2.5); Potassium 3.9 meq/L (3.5-5.1); Sodium 139 meq/L (136-145)
[2017-10-22 08:37] LABS: Alanine Aminotransferase 11 U/L (12-78); Phosphorus 3.6 mg/dL (2.5-4.9)
[2017-10-22] MEDS: Enoxaparin Inj 40 MG/0.4 ML Syringe SQ SCH (08:38)
[2017-10-22] MEDS: Captopril 12.5 MG Tablet PO SCH ×2 (08:38→20:13)
[2017-10-22 08:45] LABS: Alkaline Phosphatase 42 U/L (45-117); Free T4 (Free Thyroxine) 1.05 ng/dL (0.76-1.46); Total Protein 6.3 g/dL (6.4-8.2)
[2017-10-22] MEDS: Anticoagulant Citrate Dextrose 1,000 ML Solution EXTRACORPO PRN (13:20)
[2017-10-22] MEDS: ALBUMIN HUMAN 5% IV.SIG SCH (13:20)
--- NOTE | 2017-10-22 15:46 | P.PNIM ---
Subjective Interval history: 7-9 Follow up for MS exacerbation. Patient is resting in bed. Father is at bedside. Father feels that patient is not getting any stronger. He does not believe patient can go home to continue outpatient Plasmapheresis. No fever, chills. 7-10 CONTINUING ON EVERY OTHER DAY PLASMAPHERESIS. FATHER STATES HE CAN HEAR BETTER- VERY SLOW IMPROVEMENT CONTINUE PT AND OT DAILY 7-11 STILL VERY HARD OF HEARING HAD PLASMAPHERESIS TODAY SEEN IN HD AM LABS RESTART BACLOFEN Physical Exam Vital signs: Vital Signs 10/21/17 16:00 10/21/17 20:00 10/22/17 00:00 Temperature 98.5 F 98.3 F 98.5 F Pulse Rate 101 H 124 H 114 H Respiratory Rate 18 16 16 Blood Pressure 130/96 H 147/100 H 128/89 Pulse Oximetry 97 96 10/22/17 04:07 10/22/17 08:11 10/22/17 08:19 Temperature 98.2 F 98.5 F Pulse Rate 123 H 119 H Respiratory Rate 18 18 Blood Pressure 152/96 H 121/97 H 137/86 Pulse Oximetry 98 95 10/22/17 11:18 Temperature 97.6 F Pulse Rate 126 H Respiratory Rate 18 Blood Pressure 157/79 H Pulse Oximetry 100 Intake & Output 10/21/17 10/22/17 10/22/17 18:59 06:59 18:59 Intake Total 240 / 240 Output Total 450 / 450 100 / 100 Balance -450 / -450 140 / 140 Intake: Oral 240 / 240 Output: Urine 450 / 450 100 / 100 Other: # Voids 2 1 Date of Last Bowel Movement 10/20/17 10/20/17 Narrative: GENERAL: Alert, oriented 3, NAD. Hard of hearing. SKIN: Warm and dry. HEAD: Normocephalic. ATRAUMATIC EYES: No scleral icterus. No injection or drainage. NECK: Supple, trachea midline. No JVD or lymphadenopathy. CARDIOVASCULAR: Regular rate and rhythm without murmurs, gallops, or rubs. S1, S2 NO S3 OR S4 RESPIRATORY: Breath sounds equal bilaterally. No accessory muscle use. GASTROINTESTINAL: Abdomen soft, non-tender, nondistended. MUSCULOSKELETAL: No cyanosis, or edema. GENERALIZED WEAKNESS BACK: Nontender without obvious deformity. No CVA tenderness. Results - Labs CBC & Chem 7: 10/22/17 06:15 10/22/17 06:15 Laboratory Results - last 24 hr 10/22/17 10/22/17 10/22/17 06:15 06:15 06:15 WBC 10.1 RBC 4.95 Hgb 14.7 Hct 43.3 MCV 87.4 MCH 29.7 MCHC 34.0 RDW 13.7 Plt Count 172 MPV 9.4 Neut % (Auto) 66.5 Lymph % (Auto) 19.6 [place] % (Auto) 12.6 H Eos % (Auto) 0.6 Baso % (Auto) 0.7 Neut # (Auto) 6.7 Lymph # (Auto) 2.0 [place] # (Auto) 1.3 H Eos # (Auto) 0.1 Baso # (Auto) 0.1 WBC Differential . Differential Comment Auto diff final PT 10.0 INR 1.0 APTT 28.0 Fibrinogen 478 H Sodium 139 Potassium 3.9 Chloride 106 Carbon Dioxide 24.5 Anion Gap 9 BUN 13 Creatinine 0.71 Estimated GFR Greater than 89 Random Glucose 79 Calcium 9.1 Phosphorus 3.6 Magnesium 2.4 Total Bilirubin 0.6 AST 18 ALT 11 L Alkaline Phosphatase 42 L Total Protein 6.3 L Albumin 3.7 TSH 1.330 Free T4 1.05 - Imaging ITS Impressions Catheter Placement 10/17/17 00:00 CONCLUSION: 1. Uncomplicated line placement as above. Cervical Spine MRI 10/17/17 00:00 CONCLUSION: 1. Examination is somewhat limited due to patient motion during scanning particularly degrading the axial sequences and therefore making it very difficult to determine if there are demyelinating plaques present within the cervical cord. 2. Minimal diffuse disc bulges and uncovertebral joint spurring is noted at C5- 6 and C6-7 resulting in mild bilateral foraminal narrowing at these levels. 3. Mild cervical spondylosis is noted C5-6 and C6-7. Head MRI 10/17/17 00:00 CONCLUSION: 1. Extensive periventricular and subcortical demyelinating plaques are again noted and appears slightly worse than the previous examination in October 2016. Scattered enhancement of the periventricular and subcortical plaques is noted suggesting active demyelination. There is also a prominent new plaque within the region of the right brachium pontis measuring 15 mm and demonstrating some peripheral enhancement. A new plaque within the right midbrain is also identified and demonstrates some associated edema. The findings are consistent with interval worsening fifth multiple sclerosis. 2. No acute infarct, acute hemorrhage, midline shift or extra-axial fluid collections are noted. Thoracic Spine MRI 10/17/17 00:00 CONCLUSION: 1. The examination is limited by patient motion during scanning. There appeared to be demyelinating plaques throughout the thoracic cord at multiple levels. In order to identify the exact location of these plaques repeat scan without motion is necessary. 2. Minimal posterior osteophytic spurring is noted at T3-4 resulting in very minimal effacement of the anterior thecal sac. - Procedures Vas-Cath placement 10/17/2017 by interventional radiology. Assessment and Plan - Assessment (1) Multiple sclerosis Code(s): G35 - Multiple sclerosis Status: Chronic - Plan Mr. Yu is a 32 year old male with a history of MS who was admitted directly based on Neurologist's recommendations for Plasmapharesis. Patient has had persistent lower extremity weakness despite aggressive PT. His hearing is also worsening since he had an episode of ear infection about a month prior to this admission. Multiple sclerosis exacerbation -Neurology as well as hematology are following. Plan is to give 7 treatments every other day. -Vas-Cath was placed on 10/17/2017. First plasmapheresis on 10/18/2017. Second treatment today 10/20/2017. -Per oncology, patient has to be strong enough to be able to sit in a wheelchair to receive outpatient plasmapheresis. -Encouraged patient to work with physical therapy. He verbalized understanding. Bilateral hearing loss - somewhat improved. Tobacco abuse Marijuana use -Continue nicotine patch 14mg Qday. Full code. Lovenox. Discharge: Patient will likely stay until all 7 treatments are completed on 10/30. Code Status: FULL CODE Discussed Condition With: RN AND PT AND CM Discharge Planning: ONCE DONE WITH PLASMAPHERESIS
[2017-10-22 16:57] LABS: Hemoglobin A1c 4.7 % (4.3-6.0)
--- NOTE | 2017-10-22 17:10 | P.PNONC ---
Subjective Interval history: Still very weak. His father stated that patient's hearing may be slightly better. Patient denies chest pain or shortness of breath. He denies any bleeding. Objective Vital Signs/Intake & Output: Vital Signs 10/21/17 20:00 10/22/17 00:00 10/22/17 04:07 Temperature 98.3 F 98.5 F 98.2 F Pulse Rate 124 H 114 H 123 H Respiratory Rate 16 16 18 Blood Pressure 147/100 H 128/89 152/96 H Pulse Oximetry 96 98 10/22/17 08:11 10/22/17 08:19 10/22/17 11:18 Temperature 98.5 F 97.6 F Pulse Rate 119 H 126 H Respiratory Rate 18 18 Blood Pressure 121/97 H 137/86 157/79 H Pulse Oximetry 95 100 Intake & Output 10/21/17 10/22/17 10/22/17 18:59 06:59 18:59 Intake Total 240 / 240 Output Total 450 / 450 100 / 100 Balance -450 / -450 140 / 140 Intake: Oral 240 / 240 Output: Urine 450 / 450 100 / 100 Other: # Voids 2 1 Date of Last Bowel Movement 10/20/17 10/20/17 Result Diagrams: 10/22/17 06:15 10/22/17 06:15 Laboratory Results: Laboratory Results - last 24 hr 10/22/17 10/22/17 10/22/17 06:15 06:15 06:15 WBC 10.1 RBC 4.95 Hgb 14.7 Hct 43.3 MCV 87.4 MCH 29.7 MCHC 34.0 RDW 13.7 Plt Count 172 MPV 9.4 Neut % (Auto) 66.5 Lymph % (Auto) 19.6 [place] % (Auto) 12.6 H Eos % (Auto) 0.6 Baso % (Auto) 0.7 Neut # (Auto) 6.7 Lymph # (Auto) 2.0 [place] # (Auto) 1.3 H Eos # (Auto) 0.1 Baso # (Auto) 0.1 WBC Differential . Differential Comment Auto diff final PT 10.0 INR 1.0 APTT 28.0 Fibrinogen 478 H Sodium 139 Potassium 3.9 Chloride 106 Carbon Dioxide 24.5 Anion Gap 9 BUN 13 Creatinine 0.71 Estimated GFR Greater than 89 Random Glucose 79 Calcium 9.1 Phosphorus 3.6 Magnesium 2.4 Total Bilirubin 0.6 AST 18 ALT 11 L Alkaline Phosphatase 42 L Total Protein 6.3 L Albumin 3.7 TSH 1.330 Free T4 1.05 Medications: Active Medications Generic Name Dose Route Start Last Admin Trade Name Freq PRN Reason Stop Dose Admin Captopril 12.5 mg 10/17/17 21:00 10/22/17 08:38 Capoten PO 12.5 mg BID HARVINDER Administration Clonazepam 0.5 mg 10/17/17 20:00 10/22/17 11:42 Klonopin PO 0.5 mg Q8H HARVINDER Administration Enoxaparin Sodium 40 mg 10/17/17 09:00 10/22/17 08:38 Lovenox Inj SQ 40 mg Q24H HARVINDER Administration Albumin Human 1,900 mls @ 250 mls/hr 10/18/17 12:00 10/20/17 15:17 Alburx 5% Inj IV.SIG 10/30/17 19:35 250 mls/hr Q48H HARVINDER Administration Melatonin 5 mg 10/17/17 21:00 10/21/17 20:05 Melatonin PO 5 mg HS PRN Administration INSOMNIA Nicotine 1 patch 10/17/17 12:00 10/22/17 08:38 Habitrol 14 Mg Patch.24 Hr T-DERMAL 1 patch DAILY HARVINDER Administration Patch Removal 1 each 10/18/17 09:00 10/22/17 08:38 Remove Old Patch T-DERMAL 1 each DAILY HARVINDER Administration Patient Own 1 each 10/17/17 21:00 10/21/17 20:05 Medication: Aubagio PO 1 each (Teriflunomide) 14mg HS HARVINDER Administration Tablet Sodium Citrate 1,000 ml 10/18/17 11:08 10/20/17 12:00 Acd-A Solution EXTRACORPO 10/30/17 23:59 1,000 ml UNSCH PRN Administration APHERESIS Temazepam 15 mg 10/17/17 21:00 10/19/17 02:52 Restoril PO 15 mg HS PRN Administration INSOMNIA Objective Remarks: GENERAL: Well-nourished, well-developed patient. Cachectic and weak. Hard and hearing. SKIN: Warm and dry. HEAD: Normocephalic. EYES: No scleral icterus. No injection or drainage. NECK: Supple, trachea midline. No JVD or lymphadenopathy. LYMPHATIC: No adenopathy. CARDIOVASCULAR: Regular rate and rhythm without murmurs. RESPIRATORY: Breath sounds equal bilaterally. No accessory muscle use. GASTROINTESTINAL: Abdomen soft, non-tender, nondistended. EXTREMITIES: No cyanosis, or edema. MUSCULOSKELETAL: Adequate muscle tone. NEUROLOGICAL: Awake, alert, and oriented x3. Bilateral lower extremity weakness. PSYCHIATRIC: Appropriate mood and affect; insight and judgment normal. Assessment/Plan (1) Multiple sclerosis Code(s): G35 - Multiple sclerosis Status: Chronic - Plan 32-year-old male with multiple sclerosis exacerbation; hematology consulted for coordination of plasma exchange 1. Plasma exchange initiated on 10/18/2017. Plan is for 7 total treatments, every other day. Patient feels his hearing is a little better. He will have plasmapheresis #3 today. 2. Monitor CBC, coags, fibrinogen. 3. Continue supportive care.
--- NOTE | 2017-10-22 17:34 | P.DIET ---
Nutritional Evaluation Type of nutrition evaluation: initial Nutrition screening: Poor PO Intake Subjective Subjective Comments: Pt states he can hear better with his left ear. Denied N/V/D/C. Denied trouble chewing/swallowing. Says he needs assistance at meal times. Pt says the plasmapheresis treatments are decreasing his appetite. Says he's eating roughly 50-100% of meals. Tries to drink the Ensure. Objective - Diagnosis MS - Objective % IBW: 63 Body Weight Used for Calculations: IBW (83.6kg) Energy Needs - Lower Range (kCal/kg): 25 Energy Needs - Upper Range (kCal/kg): 30 Lower Limit kCal/kg (kCals): 2,090 Upper Limit kCal/kg (kCals): 2,508 Lower Limit Protein Factor (Grams per Kg): 1.1 Upper Limit Protein Factor (Grams per Kg): 1.3 Lower Protein Needs (Protein): 92 Upper Protein Needs (Protein): 109 Dietitian Reviewed in Medical Record: Current diet, Curent medications, Intake & Output, Labs, Medical history Diet Order: Regular, Ensure BID Oral Diet Intake Amount: Fair 50-75% Objective Comments: LBM 10/20 Bilateral hearing loss per EMR. States L ear is better. 3 of 7 plasmapheresis treatments. Feeding - Current PO Supplement Current Supplement: Ensure Original Current Frequency of Supplement: Twice daily Current kCals Provided by Supplement: 250 Current Protein Provided by Supplement: 9 Assessment Assessment: Pt admitted for MS. He's at 63% of his IBW. Unable to tell me his UBW, but was able to accurately say what his most recent bedscale wt was today (53kg). Currently is on a Regular diet w/ Ensure BID per MD order. Will change to Enlive TID for additional calories and protein. Pt denies N/V/D/C and trouble chewing/swallowing food. He is at nutritional risk r/t his MS, current wt status , and the need for assistance at meal times. Typically eats 50-100% meals per pt , depending on when he receives the plasmapheresis treatments. Will continue to monitor. Recommendations: 1. Continue Regular diet. 2. Enlive TID. 3. Assist pt at meal times to increase PO intake. Dietitian to Monitor: Lab values, Supplement acceptance, Intake & Output, Diet tolerance, Weight change, PO Intake, Medical course
[2017-10-22] MEDS: Baclofen 10 MG Tablet PO SCH (20:13)
[2017-10-22] MEDS: Melatonin 5 MG Tablet PO PRN (20:13)
[2017-10-22] MEDS: AUBAGIO 14 MG PO SCH (20:13)
--- NOTE | 2017-10-22 20:49 | P.PNNEU ---
Subjective Subjective Comments: No acute events reported Has had 3 pheresis and feels hearing is coming back but so far no LE strength improvement Active Medications: Active Medications Acetaminophen (Tylenol) 650 mg PO Q4H PRN PRN Reason: Headache, fever, pain 1-4 Al Hydroxide/Mg Hydroxide (Milk Of Magnesia Liq) 30 ml PO Q12H PRN PRN Reason: Mild Constipation Baclofen (Lioresal) 10 mg PO HS REPLACED BY [facility] Last Admin: 10/22/17 20:13 Dose: 10 mg Bisacodyl (Dulcolax Supp) 10 mg RECTAL DAILY PRN PRN Reason: SEVERE CONSITIPATION Captopril (Capoten) 12.5 mg PO BID REPLACED BY [facility] Last Admin: 10/22/17 20:13 Dose: 12.5 mg Clonazepam (Klonopin) 0.5 mg PO Q8H REPLACED BY [facility] Last Admin: 10/22/17 20:13 Dose: 0.5 mg Diphenhydramine HCl (Benadryl Inj) 25 mg IV.PUSH UNSCH PRN PRN Reason: ALLERGIC REACTION Stop: 10/30/17 23:59 Enoxaparin Sodium (Lovenox Inj) 40 mg SQ Q24H REPLACED BY [facility] Last Admin: 10/22/17 08:38 Dose: 40 mg Heparin Sodium (Porcine) (Heparin Inj) 5,000 unit IV.SIG UNSCH PRN PRN Reason: FLUSH AFTER USING IV ACCESS Stop: 10/30/17 23:59 Albumin Human (Alburx 5% Inj) 1,900 mls @ 250 mls/hr IV.SIG Q48H HARVINDER Stop: 10/30/17 19:35 Last Admin: 10/20/17 15:17 Dose: 250 mls/hr Sodium Chloride (Ns Inj) 1,000 mls @ 0 mls/hr IV.SIG .Q0M PRN PRN Reason: APHERESIS Stop: 10/30/17 23:59 Lactulose (Lactulose Liq) 30 ml PO DAILY PRN PRN Reason: SEVERE CONSITIPATION Melatonin (Melatonin) 5 mg PO HS PRN PRN Reason: INSOMNIA Last Admin: 10/22/17 20:13 Dose: 5 mg Nicotine (Habitrol 14 Mg Patch.24 Hr) 1 patch T-DERMAL DAILY REPLACED BY [facility] Last Admin: 10/22/17 08:38 Dose: 1 patch Ondansetron HCl (Zofran Odt) 4 mg PO Q6H PRN PRN Reason: NAUSEA OR VOMITING Patch Removal (Remove Old Patch) 1 each T-DERMAL DAILY HARVINDER Last Admin: 10/22/17 08:38 Dose: 1 each Patient Own Medication: Aubagio (Teriflunomide) 14mg Tablet 1 each PO HS HARVINDER Last Admin: 10/22/17 20:13 Dose: 1 each Sennosides (Senokot) 17.2 mg PO Q12H PRN PRN Reason: Moderate Constipation Sodium Chloride (Ns Flush) 10 ml IV.FLUSH UNSCH PRN PRN Reason: FLUSH AFTER USING IV ACCESS Stop: 10/30/17 23:59 Sodium Citrate (Acd-A Solution) 1,000 ml EXTRACORPO UNSCH PRN PRN Reason: APHERESIS Stop: 10/30/17 23:59 Last Admin: 10/22/17 13:20 Dose: 1,000 ml Temazepam (Restoril) 15 mg PO HS PRN PRN Reason: INSOMNIA Last Admin: 10/19/17 02:52 Dose: 15 mg Allergies/Adverse Reactions: Allergies Allergy/AdvReac Type Severity Reaction Status Date / Time No Known Allergies Allergy Uncoded 11/22/16 20:31 Physical Exam Vital signs: Vital Signs 10/22/17 00:00 10/22/17 04:07 10/22/17 08:11 Temperature 98.5 F 98.2 F 98.5 F Pulse Rate 114 H 123 H 119 H Respiratory Rate 16 18 18 Blood Pressure 128/89 152/96 H 121/97 H Pulse Oximetry 96 98 95 10/22/17 08:19 10/22/17 11:18 10/22/17 16:00 Temperature 97.6 F 99.3 F Pulse Rate 126 H 130 H Respiratory Rate 18 18 Blood Pressure 137/86 157/79 H 120/97 H Pulse Oximetry 100 97 Intake & Output 10/22/17 10/22/17 10/23/17 06:59 18:59 06:59 Intake Total 240 / 240 720 / 720 Output Total 100 / 100 800 / 800 Balance 140 / 140 -80 / -80 Intake: Oral 240 / 240 720 / 720 Output: Urine 100 / 100 Urine Amount (Catheter) 800 / 800 Condom 800 / 800 Other: # Voids 1 Date of Last Bowel Movement 10/20/17 10/20/17 - Routine Neurological Exam alert, speech normal PERRL, EOM intact MOTOR--5/5 BUE, 2/5 LLE, 3/5 RLE - Urinary Catheter Management Condom Cath placed during this visit: no Objective Laboratory Results - last 24 hr 10/22/17 10/22/17 10/22/17 06:15 06:15 06:15 WBC 10.1 RBC 4.95 Hgb 14.7 Hct 43.3 MCV 87.4 MCH 29.7 MCHC 34.0 RDW 13.7 Plt Count 172 MPV 9.4 Neut % (Auto) 66.5 Lymph % (Auto) 19.6 [place] % (Auto) 12.6 H Eos % (Auto) 0.6 Baso % (Auto) 0.7 Neut # (Auto) 6.7 Lymph # (Auto) 2.0 [place] # (Auto) 1.3 H Eos # (Auto) 0.1 Baso # (Auto) 0.1 WBC Differential . Differential Comment Auto diff final PT 10.0 INR 1.0 APTT 28.0 Fibrinogen 478 H Sodium Potassium Chloride Carbon Dioxide Anion Gap BUN Creatinine Estimated GFR Random Glucose Hemoglobin A1c 4.7 Calcium Phosphorus Magnesium Total Bilirubin AST ALT Alkaline Phosphatase Total Protein Albumin TSH Free T4 10/22/17 06:15 WBC RBC Hgb Hct MCV MCH MCHC RDW Plt Count MPV Neut % (Auto) Lymph % (Auto) [place] % (Auto) Eos % (Auto) Baso % (Auto) Neut # (Auto) Lymph # (Auto) [place] # (Auto) Eos # (Auto) Baso # (Auto) WBC Differential Differential Comment PT INR APTT Fibrinogen Sodium 139 Potassium 3.9 Chloride 106 Carbon Dioxide 24.5 Anion Gap 9 BUN 13 Creatinine 0.71 Estimated GFR Greater than 89 Random Glucose 79 Hemoglobin A1c Calcium 9.1 Phosphorus 3.6 Magnesium 2.4 Total Bilirubin 0.6 AST 18 ALT 11 L Alkaline Phosphatase 42 L Total Protein 6.3 L Albumin 3.7 TSH 1.330 Free T4 1.05 Review/Management - Diagnosis (1) Multiple sclerosis exacerbation Code(s): G35 - Multiple sclerosis Status: Acute Current Visit: Yes - Review/Management Plan: continue plasmapheresis every other day for total of 7
[2017-10-23] MEDS: clonazePAM 0.5 MG Tablet PO SCH ×3 (03:46→20:29)
[2017-10-23 05:23] LABS: Baso # (Auto) 0.1 th/mm3 (0.0-0.2); Baso % (Auto) 0.8 % (0.0-2.0); Eos # (Auto) 0.1 th/mm3 (0.0-0.4); Eos % (Auto) 0.8 % (0.0-4.0); Hematocrit 41.7 % (39.0-51.0); Hemoglobin 14.1 gm/dL (13.0-17.0); Lymph # (Auto) 2.4 th/mm3 (1.0-4.8); Lymph % (Auto) 25.5 % (9.0-44.0); Mean Corpuscular HGB Conc 33.7 % (32.0-36.0); Mean Corpuscular Hemoglobin 29.4 pg (27.0-34.0); Mean Corpuscular Volume 87.2 fL (80.0-100.0); Mean Platelet Volume 9.6 fL (7.0-11.0); Mono # (Auto) 1.1 th/mm3 (0.0-0.9); Mono % (Auto) 11.2 % (0.0-8.0); Neut # (Auto) 5.9 th/mm3 (1.8-7.7); Neut % (Auto) 61.7 % (16.0-70.0); Platelet Count 167 th/mm3 (150-450); Red Blood Count 4.79 mil/mm3 (4.50-5.90); Red Cell Distribution Width 13.3 % (11.6-17.2); White Blood Count 9.5 th/mm3 (4.0-11.0)
[2017-10-23 05:24] LABS: INR 1.1 Ratio; Prothrombin Time 10.7 sec (9.8-11.6)
[2017-10-23 05:47] LABS: Albumin 4.2 g/dL (3.4-5.0); Anion Gap 11 meq/L (5-15); Aspartate Aminotransferase 10 U/L (15-37); Blood Urea Nitrogen 14 mg/dL (7-18); Calcium 8.6 mg/dL (8.5-10.1); Carbon Dioxide 22.9 meq/L (21.0-32.0); Chloride 108 meq/L (98-107); Glomerular Filtration Rate Greater Than 89 mL/min (>89); Glucose,Random 86 mg/dL (74-106); Magnesium 2.2 mg/dL (1.5-2.5); Potassium 4.2 meq/L (3.5-5.1); Sodium 142 meq/L (136-145)
[2017-10-23 05:51] LABS: Alanine Aminotransferase 10 U/L (12-78); Alkaline Phosphatase 23 U/L (45-117); Phosphorus 3.5 mg/dL (2.5-4.9); Total Protein 5.7 g/dL (6.4-8.2)
--- NOTE | 2017-10-23 08:08 | P.PNONC ---
Subjective Interval history: Completed 3 plasmapheresis and tolerated well. No bleeding noted. Patient denies chest pain or shortness of breath. He feels a little stronger overall. Objective Vital Signs/Intake & Output: Vital Signs 10/22/17 08:11 10/22/17 08:19 10/22/17 11:18 Temperature 98.5 F 97.6 F Pulse Rate 119 H 126 H Respiratory Rate 18 18 Blood Pressure 121/97 H 137/86 157/79 H Pulse Oximetry 95 100 10/22/17 16:00 10/22/17 20:00 10/23/17 00:00 Temperature 99.3 F 98.1 F 98.7 F Pulse Rate 130 H 98 H 117 H Respiratory Rate 18 16 18 Blood Pressure 120/97 H 135/98 H 120/90 Pulse Oximetry 97 100 97 10/23/17 04:00 10/23/17 07:46 Temperature 98.3 F 98.1 F Pulse Rate 110 H 125 H Respiratory Rate 16 18 Blood Pressure 112/91 H 150/78 H Pulse Oximetry 96 967 H Intake & Output 10/22/17 10/23/17 10/23/17 18:59 06:59 18:59 Intake Total 720 / 720 150 / 150 Output Total 800 / 800 650 / 650 Balance -80 / -80 -500 / -500 Intake: Oral 720 / 720 150 / 150 Output: Urine 650 / 650 Urine Amount (Catheter) 800 / 800 Condom 800 / 800 Other: # Voids 1 Date of Last Bowel Movement 10/20/17 10/20/17 10/20/17 Result Diagrams: 10/23/17 03:30 10/23/17 03:30 Laboratory Results: Laboratory Results - last 24 hr 10/22/17 10/22/17 10/22/17 06:15 06:15 06:15 WBC 10.1 RBC 4.95 Hgb 14.7 Hct 43.3 MCV 87.4 MCH 29.7 MCHC 34.0 RDW 13.7 Plt Count 172 MPV 9.4 Neut % (Auto) 66.5 Lymph % (Auto) 19.6 [place] % (Auto) 12.6 H Eos % (Auto) 0.6 Baso % (Auto) 0.7 Neut # (Auto) 6.7 Lymph # (Auto) 2.0 [place] # (Auto) 1.3 H Eos # (Auto) 0.1 Baso # (Auto) 0.1 WBC Differential . Differential Comment Auto diff final PT 10.0 INR 1.0 APTT 28.0 Fibrinogen 478 H Sodium Potassium Chloride Carbon Dioxide Anion Gap BUN Creatinine Estimated GFR Random Glucose Hemoglobin A1c 4.7 Calcium Phosphorus Magnesium Total Bilirubin AST ALT Alkaline Phosphatase Total Protein Albumin TSH Free T4 10/22/17 10/23/17 10/23/17 06:15 03:30 03:30 WBC 9.5 RBC 4.79 Hgb 14.1 Hct 41.7 MCV 87.2 MCH 29.4 MCHC 33.7 RDW 13.3 Plt Count 167 MPV 9.6 Neut % (Auto) 61.7 Lymph % (Auto) 25.5 [place] % (Auto) 11.2 H Eos % (Auto) 0.8 Baso % (Auto) 0.8 Neut # (Auto) 5.9 Lymph # (Auto) 2.4 [place] # (Auto) 1.1 H Eos # (Auto) 0.1 Baso # (Auto) 0.1 WBC Differential . Differential Comment Auto diff final PT 10.7 INR 1.1 APTT 31.0 H Fibrinogen 288 Sodium 139 Potassium 3.9 Chloride 106 Carbon Dioxide 24.5 Anion Gap 9 BUN 13 Creatinine 0.71 Estimated GFR Greater than 89 Random Glucose 79 Hemoglobin A1c Calcium 9.1 Phosphorus 3.6 Magnesium 2.4 Total Bilirubin 0.6 AST 18 ALT 11 L Alkaline Phosphatase 42 L Total Protein 6.3 L Albumin 3.7 TSH 1.330 Free T4 1.05 10/23/17 03:30 WBC RBC Hgb Hct MCV MCH MCHC RDW Plt Count MPV Neut % (Auto) Lymph % (Auto) [place] % (Auto) Eos % (Auto) Baso % (Auto) Neut # (Auto) Lymph # (Auto) [place] # (Auto) Eos # (Auto) Baso # (Auto) WBC Differential Differential Comment PT INR APTT Fibrinogen Sodium 142 Potassium 4.2 Chloride 108 H Carbon Dioxide 22.9 Anion Gap 11 BUN 14 Creatinine 0.54 L Estimated GFR Greater than 89 Random Glucose 86 Hemoglobin A1c Calcium 8.6 Phosphorus 3.5 Magnesium 2.2 Total Bilirubin 0.6 AST 10 L ALT 10 L Alkaline Phosphatase 23 L Total Protein 5.7 L D Albumin 4.2 TSH Free T4 Medications: Active Medications Generic Name Dose Route Start Last Admin Trade Name Freq PRN Reason Stop Dose Admin Baclofen 10 mg 10/22/17 21:00 10/22/17 20:13 Lioresal PO 10 mg HS HARVINDER Administration Captopril 12.5 mg 10/17/17 21:00 10/22/17 20:13 Capoten PO 12.5 mg BID HARVINDER Administration Clonazepam 0.5 mg 10/17/17 20:00 10/23/17 03:46 Klonopin PO 0.5 mg Q8H HARVINDER Administration Enoxaparin Sodium 40 mg 10/17/17 09:00 10/22/17 08:38 Lovenox Inj SQ 40 mg Q24H HARVINDER Administration Albumin Human 1,900 mls @ 250 mls/hr 10/18/17 12:00 10/20/17 15:17 Alburx 5% Inj IV.SIG 10/30/17 19:35 250 mls/hr Q48H HARVINDER Administration Melatonin 5 mg 10/17/17 21:00 10/22/17 20:13 Melatonin PO 5 mg HS PRN Administration INSOMNIA Nicotine 1 patch 10/17/17 12:00 10/22/17 08:38 Habitrol 14 Mg Patch.24 Hr T-DERMAL 1 patch DAILY HARVINDER Administration Patch Removal 1 each 10/18/17 09:00 10/22/17 08:38 Remove Old Patch T-DERMAL 1 each DAILY HARVINDER Administration Patient Own 1 each 10/17/17 21:00 10/22/17 20:13 Medication: Aubagio PO 1 each (Teriflunomide) 14mg HS HARVINDER Administration Tablet Sodium Citrate 1,000 ml 10/18/17 11:08 10/22/17 13:20 Acd-A Solution EXTRACORPO 10/30/17 23:59 1,000 ml UNSCH PRN Administration APHERESIS Temazepam 15 mg 10/17/17 21:00 10/19/17 02:52 Restoril PO 15 mg HS PRN Administration INSOMNIA Objective Remarks: GENERAL: Well-nourished, well-developed patient. Heart in hearing. Cachectic. SKIN: Warm and dry. HEAD: Normocephalic. EYES: No scleral icterus. No injection or drainage. NECK: Supple, trachea midline. No JVD or lymphadenopathy. LYMPHATIC: No adenopathy. CARDIOVASCULAR: Regular rate and rhythm without murmurs. RESPIRATORY: Breath sounds equal bilaterally. No accessory muscle use. GASTROINTESTINAL: Abdomen soft, non-tender, nondistended. EXTREMITIES: No cyanosis, or edema. MUSCULOSKELETAL: Adequate muscle tone. NEUROLOGICAL: Awake, alert, and oriented x3. Bilateral lower extremity paralysis. PSYCHIATRIC: Appropriate mood and affect; insight and judgment normal. Assessment/Plan (1) Multiple sclerosis Code(s): G35 - Multiple sclerosis Status: Chronic - Plan 32-year-old male with multiple sclerosis exacerbation; hematology consulted for coordination of plasma exchange 1. Plasma exchange initiated on 10/18/2017. Plan is for 7 total treatments, every other day. Patient feels his hearing is a little better. He will have plasmapheresis #4 tomorrow. 2. Monitor CBC, coags, fibrinogen. 3. Continue supportive care.
[2017-10-23] MEDS: Enoxaparin Inj 40 MG/0.4 ML Syringe SQ SCH (08:27)
[2017-10-23] MEDS: Captopril 12.5 MG Tablet PO SCH ×2 (08:27→20:29)
--- NOTE | 2017-10-23 11:32 | P.PNIM ---
Subjective Interval history: 7-9 Follow up for MS exacerbation. Patient is resting in bed. Father is at bedside. Father feels that patient is not getting any stronger. He does not believe patient can go home to continue outpatient Plasmapheresis. No fever, chills. 7-10 CONTINUING ON EVERY OTHER DAY PLASMAPHERESIS. FATHER STATES HE CAN HEAR BETTER- VERY SLOW IMPROVEMENT CONTINUE PT AND OT DAILY 7-11 STILL VERY HARD OF HEARING HAD PLASMAPHERESIS TODAY SEEN IN HD AM LABS RESTART BACLOFEN 7-12 sleepy today eating better per RN DW RN AND PT AND CM Physical Exam Vital signs: Vital Signs 10/22/17 16:00 10/22/17 20:00 10/23/17 00:00 Temperature 99.3 F 98.1 F 98.7 F Pulse Rate 130 H 98 H 117 H Respiratory Rate 18 16 18 Blood Pressure 120/97 H 135/98 H 120/90 Pulse Oximetry 97 100 97 10/23/17 04:00 10/23/17 07:46 10/23/17 11:18 Temperature 98.3 F 98.1 F 97.7 F Pulse Rate 110 H 125 H 135 H Respiratory Rate 16 18 18 Blood Pressure 112/91 H 150/78 H 141/80 H Pulse Oximetry 96 967 H 100 Intake & Output 10/22/17 10/23/17 10/23/17 18:59 06:59 18:59 Intake Total 720 / 720 150 / 150 Output Total 800 / 800 650 / 650 Balance -80 / -80 -500 / -500 Intake: Oral 720 / 720 150 / 150 Output: Urine 650 / 650 Urine Amount (Catheter) 800 / 800 Condom 800 / 800 Other: # Voids 1 Date of Last Bowel Movement 10/20/17 10/20/17 10/20/17 Narrative: GENERAL: Alert, oriented 3, NAD. Hard of hearing. SKIN: Warm and dry. HEAD: Normocephalic. ATRAUMATIC EYES: No scleral icterus. No injection or drainage. NECK: Supple, trachea midline. No JVD or lymphadenopathy. CARDIOVASCULAR: Regular rate and rhythm without murmurs, gallops, or rubs. S1, S2 NO S3 OR S4 RESPIRATORY: Breath sounds equal bilaterally. No accessory muscle use. GASTROINTESTINAL: Abdomen soft, non-tender, nondistended. MUSCULOSKELETAL: No cyanosis, or edema. GENERALIZED WEAKNESS BACK: Nontender without obvious deformity. No CVA tenderness. - Urinary Catheter Management Condom Cath placed during this visit: no Results - Labs CBC & Chem 7: 10/23/17 03:30 10/23/17 03:30 Laboratory Results - last 24 hr 10/22/17 10/23/17 10/23/17 06:15 03:30 03:30 WBC 9.5 RBC 4.79 Hgb 14.1 Hct 41.7 MCV 87.2 MCH 29.4 MCHC 33.7 RDW 13.3 Plt Count 167 MPV 9.6 Neut % (Auto) 61.7 Lymph % (Auto) 25.5 [place] % (Auto) 11.2 H Eos % (Auto) 0.8 Baso % (Auto) 0.8 Neut # (Auto) 5.9 Lymph # (Auto) 2.4 [place] # (Auto) 1.1 H Eos # (Auto) 0.1 Baso # (Auto) 0.1 WBC Differential . Differential Comment Auto diff final PT 10.7 INR 1.1 APTT 31.0 H Fibrinogen 288 Sodium Potassium Chloride Carbon Dioxide Anion Gap BUN Creatinine Estimated GFR Random Glucose Hemoglobin A1c 4.7 Calcium Phosphorus Magnesium Total Bilirubin AST ALT Alkaline Phosphatase Total Protein Albumin 10/23/17 03:30 WBC RBC Hgb Hct MCV MCH MCHC RDW Plt Count MPV Neut % (Auto) Lymph % (Auto) [place] % (Auto) Eos % (Auto) Baso % (Auto) Neut # (Auto) Lymph # (Auto) [place] # (Auto) Eos # (Auto) Baso # (Auto) WBC Differential Differential Comment PT INR APTT Fibrinogen Sodium 142 Potassium 4.2 Chloride 108 H Carbon Dioxide 22.9 Anion Gap 11 BUN 14 Creatinine 0.54 L Estimated GFR Greater than 89 Random Glucose 86 Hemoglobin A1c Calcium 8.6 Phosphorus 3.5 Magnesium 2.2 Total Bilirubin 0.6 AST 10 L ALT 10 L Alkaline Phosphatase 23 L Total Protein 5.7 L D Albumin 4.2 - Imaging ITS Impressions Catheter Placement 10/17/17 00:00 CONCLUSION: 1. Uncomplicated line placement as above. Cervical Spine MRI 10/17/17 00:00 CONCLUSION: 1. Examination is somewhat limited due to patient motion during scanning particularly degrading the axial sequences and therefore making it very difficult to determine if there are demyelinating plaques present within the cervical cord. 2. Minimal diffuse disc bulges and uncovertebral joint spurring is noted at C5- 6 and C6-7 resulting in mild bilateral foraminal narrowing at these levels. 3. Mild cervical spondylosis is noted C5-6 and C6-7. Head MRI 10/17/17 00:00 CONCLUSION: 1. Extensive periventricular and subcortical demyelinating plaques are again noted and appears slightly worse than the previous examination in October 2016. Scattered enhancement of the periventricular and subcortical plaques is noted suggesting active demyelination. There is also a prominent new plaque within the region of the right brachium pontis measuring 15 mm and demonstrating some peripheral enhancement. A new plaque within the right midbrain is also identified and demonstrates some associated edema. The findings are consistent with interval worsening fifth multiple sclerosis. 2. No acute infarct, acute hemorrhage, midline shift or extra-axial fluid collections are noted. Thoracic Spine MRI 10/17/17 00:00 CONCLUSION: 1. The examination is limited by patient motion during scanning. There appeared to be demyelinating plaques throughout the thoracic cord at multiple levels. In order to identify the exact location of these plaques repeat scan without motion is necessary. 2. Minimal posterior osteophytic spurring is noted at T3-4 resulting in very minimal effacement of the anterior thecal sac. - Procedures Vas-Cath placement 10/17/2017 by interventional radiology. Assessment and Plan - Assessment (1) Multiple sclerosis Code(s): G35 - Multiple sclerosis Status: Chronic - Plan Mr. Yu is a 32 year old male with a history of MS who was admitted directly based on Neurologist's recommendations for Plasmapharesis. Patient has had persistent lower extremity weakness despite aggressive PT. His hearing is also worsening since he had an episode of ear infection about a month prior to this admission. Multiple sclerosis exacerbation -Neurology as well as hematology are following. Plan is to give 7 treatments every other day. -Vas-Cath was placed on 10/17/2017. First plasmapheresis on 10/18/2017. Second treatment today 10/20/2017. -Per oncology, patient has to be strong enough to be able to sit in a wheelchair to receive outpatient plasmapheresis. -Encouraged patient to work with physical therapy. He verbalized understanding. CONTINUE IVIG QOD FOR TOTAL OF 7 TREATMENTS Bilateral hearing loss - somewhat improved. PCM -PROTEIN CALORIE MALNUTRITION- PATIENT IS BEING TREATED WITH SUPPLEMENTS ORALLY TID Tobacco abuse Marijuana use -Continue nicotine patch 14mg Qday. Full code. Lovenox. Discharge: Patient will likely stay until all 7 treatments are completed on 10/30. Code Status: FULL CODE Discussed Condition With: RN AND PT AND CM Discharge Planning: ONCE DONE WITH PLASMAPHERESIS
[2017-10-23] MEDS ORDERED: Sod Chloride 0.9% Inj 1,000 ML IV.SIG SCH (18:00)
[2017-10-23] MEDS: Sod Chloride 0.9% Inj 1,000 ML IV.SIG SCH (18:51)
[2017-10-23] MEDS: Melatonin 5 MG Tablet PO PRN (20:29)
[2017-10-23] MEDS: AUBAGIO 14 MG PO SCH (20:30)
[2017-10-23] MEDS: Baclofen 10 MG Tablet PO SCH (21:00)
[2017-10-24] MEDS: clonazePAM 0.5 MG Tablet PO SCH ×3 (03:51→20:12)
[2017-10-24] MEDS: Sod Chloride 0.9% Inj 1,000 ML IV.SIG SCH ×2 (03:52→15:00)
[2017-10-24 05:30] LABS: Baso # (Auto) 0.1 th/mm3 (0.0-0.2); Eos # (Auto) 0.1 th/mm3 (0.0-0.4); Eos % (Auto) 1.2 % (0.0-4.0); Hematocrit 34.4 % (39.0-51.0); Hemoglobin 11.6 gm/dL (13.0-17.0); Lymph # (Auto) 2.4 th/mm3 (1.0-4.8); Lymph % (Auto) 32.7 % (9.0-44.0); Mean Corpuscular HGB Conc 33.6 % (32.0-36.0); Mean Corpuscular Hemoglobin 29.3 pg (27.0-34.0); Mean Corpuscular Volume 87.3 fL (80.0-100.0); Mean Platelet Volume 9.2 fL (7.0-11.0); Mono # (Auto) 0.9 th/mm3 (0.0-0.9); Neut % (Auto) 53.1 % (16.0-70.0); Platelet Count 159 th/mm3 (150-450); Red Blood Count 3.94 mil/mm3 (4.50-5.90); Red Cell Distribution Width 13.2 % (11.6-17.2); White Blood Count 7.4 th/mm3 (4.0-11.0)
[2017-10-24 05:44] LABS: Anion Gap 8 meq/L (5-15); Blood Urea Nitrogen 16 mg/dL (7-18); Calcium 8.2 mg/dL (8.5-10.1); Carbon Dioxide 24.1 meq/L (21.0-32.0); Chloride 108 meq/L (98-107); Glomerular Filtration Rate Greater Than 89 mL/min (>89); Glucose,Random 82 mg/dL (74-106); Potassium 3.8 meq/L (3.5-5.1); Sodium 140 meq/L (136-145)
[2017-10-24] MEDS: Enoxaparin Inj 40 MG/0.4 ML Syringe SQ SCH (09:13)
[2017-10-24] MEDS: Captopril 12.5 MG Tablet PO SCH ×2 (09:14→20:12)
[2017-10-24] MEDS: ALBUMIN HUMAN 5% IV.SIG SCH ×2 (10:07→13:33)
[2017-10-24] MEDS: Anticoagulant Citrate Dextrose 1,000 ML Solution EXTRACORPO PRN (10:08)
[2017-10-24] MEDS: Calcium Carbonate 500 MG Tablet PO PRN ×2 (10:09→10:16)
--- NOTE | 2017-10-24 12:22 | P.PNIM ---
Subjective Interval history: 7 Follow up for MS exacerbation. Patient is resting in bed. Father is at bedside. Father feels that patient is not getting any stronger. He does not believe patient can go home to continue outpatient Plasmapheresis. No fever, chills. 7- CONTINUING ON EVERY OTHER DAY PLASMAPHERESIS. FATHER STATES HE CAN HEAR BETTER- VERY SLOW IMPROVEMENT CONTINUE PT AND OT DAILY 10-22 STILL VERY HARD OF HEARING HAD PLASMAPHERESIS TODAY SEEN IN HD AM LABS RESTART BACLOFEN 10-23 sleepy today eating better per RN DW RN AND PT AND CM 10-24 HAS SOME TACHYCARDIA WILL CONTINUE IV FLUIDS HAD PLASMAPHERESIS TODAY DW RN AND PT AND CM AND FAMILY NEEDS 3 MORE TREATMENTS ONE ON 10-26, THEN 10-28, AND 10-30 Physical Exam Vital signs: Vital Signs 10/23/17 15:39 10/23/17 16:07 10/23/17 20:00 Temperature 98.2 F 97.4 F L Pulse Rate 138 H 132 H 140 H Respiratory Rate 18 18 Blood Pressure 122/88 131/74 Pulse Oximetry 95 98 10/24/17 00:00 10/24/17 04:00 10/24/17 08:15 Temperature 98.4 F 98.0 F 97.9 F Pulse Rate 112 H 106 H 106 H Respiratory Rate 20 20 18 Blood Pressure 111/54 L 102/51 L 125/81 Pulse Oximetry 97 99 99 10/24/17 11:05 Temperature 97.3 F L Pulse Rate 118 H Respiratory Rate 18 Blood Pressure 113/65 Pulse Oximetry 100 Intake & Output 10/23/17 10/24/17 10/24/17 18:59 06:59 18:59 Intake Total 700 / 700 Output Total 75 / 75 Balance 625 / 625 Weight 51.6 kg 57.4 kg Intake: IV 100 / 100 NS Inj 1,000 ML @ 100 mls/hr IV 100 / 100 .SIG .Q10H HARVINDER Rx#:[id number] Oral 600 / 600 Output: Urine 75 / 75 Other: # Incontinent Voids 2 Date of Last Bowel Movement 10/20/17 10/20/17 10/20/17 Narrative: GENERAL: Alert, oriented 3, NAD. Hard of hearing. SKIN: Warm and dry. HEAD: Normocephalic. ATRAUMATIC EYES: No scleral icterus. No injection or drainage. NECK: Supple, trachea midline. No JVD or lymphadenopathy. CARDIOVASCULAR: Regular rate and rhythm without murmurs, gallops, or rubs. S1, S2 NO S3 OR S4 SOME TACHYCARDIA RESPIRATORY: Breath sounds equal bilaterally. No accessory muscle use. GASTROINTESTINAL: Abdomen soft, non-tender, nondistended. MUSCULOSKELETAL: No cyanosis, or edema. GENERALIZED WEAKNESS BACK: Nontender without obvious deformity. No CVA tenderness. - Urinary Catheter Management Condom Cath placed during this visit: no Results - Labs CBC & Chem 7: 10/24/17 04:42 10/24/17 04:42 Laboratory Results - last 24 hr 10/24/17 10/24/17 10/24/17 04:42 04:42 04:42 WBC 7.4 RBC 3.94 L Hgb 11.6 L D Hct 34.4 L MCV 87.3 MCH 29.3 MCHC 33.6 RDW 13.2 Plt Count 159 MPV 9.2 Neut % (Auto) 53.1 Lymph % (Auto) 32.7 [place] % (Auto) 12.0 H Eos % (Auto) 1.2 Baso % (Auto) 1.0 Neut # (Auto) 4.0 Lymph # (Auto) 2.4 [place] # (Auto) 0.9 Eos # (Auto) 0.1 Baso # (Auto) 0.1 WBC Differential . Differential Comment Auto diff final Fibrinogen 341 Sodium 140 Potassium 3.8 Chloride 108 H Carbon Dioxide 24.1 Anion Gap 8 BUN 16 Creatinine 0.51 L Estimated GFR Greater than 89 Random Glucose 82 Calcium 8.2 L - Imaging ITS Impressions Catheter Placement 10/17/17 00:00 CONCLUSION: 1. Uncomplicated line placement as above. Cervical Spine MRI 10/17/17 00:00 CONCLUSION: 1. Examination is somewhat limited due to patient motion during scanning particularly degrading the axial sequences and therefore making it very difficult to determine if there are demyelinating plaques present within the cervical cord. 2. Minimal diffuse disc bulges and uncovertebral joint spurring is noted at C5- 6 and C6-7 resulting in mild bilateral foraminal narrowing at these levels. 3. Mild cervical spondylosis is noted C5-6 and C6-7. Head MRI 10/17/17 00:00 CONCLUSION: 1. Extensive periventricular and subcortical demyelinating plaques are again noted and appears slightly worse than the previous examination in October 2016. Scattered enhancement of the periventricular and subcortical plaques is noted suggesting active demyelination. There is also a prominent new plaque within the region of the right brachium pontis measuring 15 mm and demonstrating some peripheral enhancement. A new plaque within the right midbrain is also identified and demonstrates some associated edema. The findings are consistent with interval worsening fifth multiple sclerosis. 2. No acute infarct, acute hemorrhage, midline shift or extra-axial fluid collections are noted. Thoracic Spine MRI 10/17/17 00:00 CONCLUSION: 1. The examination is limited by patient motion during scanning. There appeared to be demyelinating plaques throughout the thoracic cord at multiple levels. In order to identify the exact location of these plaques repeat scan without motion is necessary. 2. Minimal posterior osteophytic spurring is noted at T3-4 resulting in very minimal effacement of the anterior thecal sac. - Procedures Vas-Cath placement 10/17/2017 by interventional radiology. Assessment and Plan - Assessment (1) Multiple sclerosis Code(s): G35 - Multiple sclerosis Status: Chronic - Plan Mr. Yu is a 32 year old male with a history of MS who was admitted directly based on Neurologist's recommendations for Plasmapharesis. Patient has had persistent lower extremity weakness despite aggressive PT. His hearing is also worsening since he had an episode of ear infection about a month prior to this admission. Multiple sclerosis exacerbation -Neurology as well as hematology are following. Plan is to give 7 treatments every other day. -Vas-Cath was placed on 10/17/2017. First plasmapheresis on 10/18/2017. Second treatment today 10/20/2017. 3RD ON 10/22 4TH ON 10/24 -Per oncology, patient has to be strong enough to be able to sit in a wheelchair to receive outpatient plasmapheresis. -Encouraged patient to work with physical therapy. He verbalized understanding. CONTINUE IVIG QOD FOR TOTAL OF 7 TREATMENTS--NEEDS 3 MORE TREATMENTS Bilateral hearing loss - somewhat improved. PCM -PROTEIN CALORIE MALNUTRITION- PATIENT IS BEING TREATED WITH SUPPLEMENTS ORALLY TID Tobacco abuse Marijuana use -Continue nicotine patch 14mg Qday. Full code. Lovenox. Discharge: Patient will likely stay until all 7 treatments are completed on 10/30. Code Status: FULL CODE Discussed Condition With: PT AND RN AND FAMILY AND CM Discharge Planning: ONCE DONE WITH PLASMAPHERESIS
--- NOTE | 2017-10-24 13:20 | P.PNONC ---
Subjective Interval history: Pt returned to room for receiving plasma phoresis. No new complaints at this time. Objective Vital Signs/Intake & Output: Vital Signs 10/23/17 15:39 10/23/17 16:07 10/23/17 20:00 Temperature 98.2 F 97.4 F L Pulse Rate 138 H 132 H 140 H Respiratory Rate 18 18 Blood Pressure 122/88 131/74 Pulse Oximetry 95 98 10/24/17 00:00 10/24/17 04:00 10/24/17 08:15 Temperature 98.4 F 98.0 F 97.9 F Pulse Rate 112 H 106 H 106 H Respiratory Rate 20 20 18 Blood Pressure 111/54 L 102/51 L 125/81 Pulse Oximetry 97 99 99 10/24/17 11:05 Temperature 97.3 F L Pulse Rate 118 H Respiratory Rate 18 Blood Pressure 113/65 Pulse Oximetry 100 Intake & Output 10/23/17 10/24/17 10/24/17 18:59 06:59 18:59 Intake Total 700 / 700 Output Total 75 / 75 Balance 625 / 625 Weight 51.6 kg 57.4 kg Intake: IV 100 / 100 NS Inj 1,000 ML @ 100 mls/hr IV 100 / 100 .SIG .Q10H [facility]ER Rx#:[id number] Oral 600 / 600 Output: Urine 75 / 75 Other: # Incontinent Voids 2 Date of Last Bowel Movement 10/20/17 10/20/17 10/20/17 Result Diagrams: 10/24/17 04:42 10/24/17 04:42 Laboratory Results: Laboratory Results - last 24 hr 10/24/17 10/24/17 10/24/17 04:42 04:42 04:42 WBC 7.4 RBC 3.94 L Hgb 11.6 L D Hct 34.4 L MCV 87.3 MCH 29.3 MCHC 33.6 RDW 13.2 Plt Count 159 MPV 9.2 Neut % (Auto) 53.1 Lymph % (Auto) 32.7 [place] % (Auto) 12.0 H Eos % (Auto) 1.2 Baso % (Auto) 1.0 Neut # (Auto) 4.0 Lymph # (Auto) 2.4 [place] # (Auto) 0.9 Eos # (Auto) 0.1 Baso # (Auto) 0.1 WBC Differential . Differential Comment Auto diff final Fibrinogen 341 Sodium 140 Potassium 3.8 Chloride 108 H Carbon Dioxide 24.1 Anion Gap 8 BUN 16 Creatinine 0.51 L Estimated GFR Greater than 89 Random Glucose 82 Calcium 8.2 L Medications: Active Medications Generic Name Dose Route Start Last Admin Trade Name Freq PRN Reason Stop Dose Admin Baclofen 10 mg 10/22/17 21:00 10/23/17 21:00 Lioresal PO 10 mg HS HARVINDER Administration Captopril 12.5 mg 10/17/17 21:00 10/24/17 09:14 Capoten PO 12.5 mg BID HARVINDER Administration Clonazepam 0.5 mg 10/17/17 20:00 10/24/17 11:09 Klonopin PO 0.5 mg Q8H [facility]INDER Administration Enoxaparin Sodium 40 mg 10/17/17 09:00 10/24/17 09:13 Lovenox Inj SQ 40 mg Q24H [facility]INDER Administration Albumin Human 1,900 mls @ 250 mls/hr 10/18/17 12:00 10/22/17 14:30 Alburx 5% Inj IV.SIG 10/30/17 19:35 Infused Q48H HARVINDER Infusion Sodium Chloride 1,000 mls @ 100 mls/hr 10/23/17 18:00 10/24/17 03:52 Ns Inj IV.SIG 100 mls/hr .Q10H [facility]INDER Administration Melatonin 5 mg 10/17/17 21:00 10/23/17 20:29 Melatonin PO 5 mg HS PRN Administration INSOMNIA Nicotine 1 patch 10/17/17 12:00 10/24/17 09:14 Habitrol 14 Mg Patch.24 Hr T-DERMAL 1 patch DAILY [facility]INDER Administration Patch Removal 1 each 10/18/17 09:00 10/24/17 09:14 Remove Old Patch T-DERMAL 1 each DAILY [facility]INDER Administration Patient Own 1 each 10/17/17 21:00 10/23/17 20:30 Medication: Aubagio PO 1 each (Teriflunomide) 14mg HS HARVINDER Administration Tablet Sodium Citrate 1,000 ml 10/18/17 11:08 10/24/17 10:08 Acd-A Solution EXTRACORPO 10/30/17 23:59 1,000 ml UNSCH PRN Administration APHERESIS Temazepam 15 mg 10/17/17 21:00 10/19/17 02:52 Restoril PO 15 mg HS PRN Administration INSOMNIA Objective Remarks: GENERAL: Cachectic young male patient. Lying in bed in no acute distress SKIN: Warm and dry. HEAD: Normocephalic. Hard of hearing. EYES: No scleral icterus. No injection or drainage. NECK: Supple, trachea midline. CARDIOVASCULAR: Regular rate and rhythm without murmurs. RESPIRATORY: Anterior breath sounds clear, equal bilaterally. GASTROINTESTINAL: Abdomen flat, soft, non-tender, nondistended. EXTREMITIES: No cyanosis or edema. MUSCULOSKELETAL: + Muscle wasting, decreased tone. NEUROLOGICAL: Alert and oriented. Hard of hearing. Assessment/Plan (1) Multiple sclerosis Code(s): G35 - Multiple sclerosis Status: Chronic - Plan 32-year-old male with multiple sclerosis exacerbation; hematology consulted for coordination of plasma exchange 1. Plasma exchange initiated on 10/18/2017. Plan is for 7 total treatments, every other day. Patient feels his hearing is a little better. 2. He had plasma exchange #4 today. 2. Monitor CBC, coags, fibrinogen. 3. Continue supportive care. - Attending Statement The exam, history, and the medical decision-making described in the above note were completed with the assistance of the mid-level provider. I reviewed and agree with the findings presented. I attest that I had a [id number] encounter with the patient on the same day, and personally performed and documented my assessment and findings in the medical record.Feeling slightly stronger. Hgb trended down slightly. Proceed with PLEX # 4 today.
--- NOTE | 2017-10-24 17:16 | P.PNNEU ---
Subjective Subjective Comments: He has had 4 plasmapheresis treatments and is tolerating them. He feels his hearing is improving and feels some improvement in strength Active Medications: Active Medications Acetaminophen (Tylenol) 650 mg PO Q4H PRN PRN Reason: Headache, fever, pain 1-4 Al Hydroxide/Mg Hydroxide (Milk Of Magnesia Liq) 30 ml PO Q12H PRN PRN Reason: Mild Constipation Baclofen (Lioresal) 10 mg PO HS [facility] Last Admin: 10/23/17 21:00 Dose: 10 mg Bisacodyl (Dulcolax Supp) 10 mg RECTAL DAILY PRN PRN Reason: SEVERE CONSITIPATION Captopril (Capoten) 12.5 mg PO BID [facility] Last Admin: 10/24/17 09:14 Dose: 12.5 mg Clonazepam (Klonopin) 0.5 mg PO Q8H [facility] Last Admin: 10/24/17 11:09 Dose: 0.5 mg Diphenhydramine HCl (Benadryl Inj) 25 mg IV.PUSH UNSCH PRN PRN Reason: ALLERGIC REACTION Stop: 10/30/17 23:59 Enoxaparin Sodium (Lovenox Inj) 40 mg SQ Q24H [facility] Last Admin: 10/24/17 09:13 Dose: 40 mg Heparin Sodium (Porcine) (Heparin Inj) 5,000 unit IV.SIG UNSCH PRN PRN Reason: FLUSH AFTER USING IV ACCESS Stop: 10/30/17 23:59 Albumin Human (Alburx 5% Inj) 1,900 mls @ 250 mls/hr IV.SIG Q48H [facility]INDER Stop: 10/30/17 19:35 Last Infusion: 10/24/17 13:34 Dose: Infused Sodium Chloride (Ns Inj) 1,000 mls @ 0 mls/hr IV.SIG .Q0M PRN PRN Reason: APHERESIS Stop: 10/30/17 23:59 Sodium Chloride (Ns Inj) 1,000 mls @ 100 mls/hr IV.SIG .Q10H [facility] Last Admin: 10/24/17 03:52 Dose: 100 mls/hr Lactulose (Lactulose Liq) 30 ml PO DAILY PRN PRN Reason: SEVERE CONSITIPATION Melatonin (Melatonin) 5 mg PO HS PRN PRN Reason: INSOMNIA Last Admin: 07/12/18 20:29 Dose: 5 mg Nicotine (Habitrol 14 Mg Patch.24 Hr) 1 patch T-DERMAL DAILY [facility] Last Admin: 10/24/17 09:14 Dose: 1 patch Ondansetron HCl (Zofran Odt) 4 mg PO Q6H PRN PRN Reason: NAUSEA OR VOMITING Patch Removal (Remove Old Patch) 1 each T-DERMAL DAILY [facility] Last Admin: 10/24/17 09:14 Dose: 1 each Patient Own Medication: Aubagio (Teriflunomide) 14mg Tablet 1 each PO HS [facility] Last Admin: 10/23/17 20:30 Dose: 1 each Sennosides (Senokot) 17.2 mg PO Q12H PRN PRN Reason: Moderate Constipation Sodium Chloride (Ns Flush) 10 ml IV.FLUSH UNSCH PRN PRN Reason: FLUSH AFTER USING IV ACCESS Stop: 10/30/17 23:59 Sodium Citrate (Acd-A Solution) 1,000 ml EXTRACORPO UNSCH PRN PRN Reason: APHERESIS Stop: 10/30/17 23:59 Last Admin: 10/22/17 13:20 Dose: 1,000 ml Temazepam (Restoril) 15 mg PO HS PRN PRN Reason: INSOMNIA Last Admin: 10/19/17 02:52 Dose: 15 mg Allergies/Adverse Reactions: Allergies Allergy/AdvReac Type Severity Reaction Status Date / Time No Known Allergies Allergy Uncoded 11/22/16 20:31 Physical Exam Vital signs: Vital Signs 10/23/17 20:00 10/24/17 00:00 10/24/17 04:00 Temperature 97.4 F L 98.4 F 98.0 F Pulse Rate 140 H 112 H 106 H Respiratory Rate 18 20 20 Blood Pressure 131/74 111/54 L 102/51 L Pulse Oximetry 98 97 99 10/24/17 08:15 10/24/17 11:05 10/24/17 15:40 Temperature 97.9 F 97.3 F L 98.1 F Pulse Rate 106 H 118 H 111 H Respiratory Rate 18 18 18 Blood Pressure 125/81 113/65 112/72 Pulse Oximetry 99 100 97 Intake & Output 10/23/17 10/24/17 10/24/17 18:59 06:59 18:59 Intake Total 700 / 700 1900 / 1900 Output Total 75 / 75 1900 / 1900 Balance 625 / 625 0 / 0 Weight 51.6 kg 57.4 kg Intake: IV 100 / 100 1900 / 1900 Alburx 5% Inj 1,900 ML @ 250 1900 / 1900 mls/hr IV.SIG Q48H [facility] Rx#: [id number] NS Inj 1,000 ML @ 100 mls/hr IV 100 / 100 .SIG .Q10H [facility]INDER Rx#:[id number] Oral 600 / 600 Output: Urine 75 / 75 Plasma Exchange Amount 1900 / 1900 Other: # Incontinent Voids 2 Date of Last Bowel Movement 10/20/17 10/20/17 10/20/17 - Routine Neurological Exam alert CN intact MOTOR 4/5 BUE, 2/5 LLe, 3/5 RLE - Urinary Catheter Management Condom Cath placed during this visit: no Objective Laboratory Results - last 24 hr 10/24/17 10/24/17 10/24/17 04:42 04:42 04:42 WBC 7.4 RBC 3.94 L Hgb 11.6 L D Hct 34.4 L MCV 87.3 MCH 29.3 MCHC 33.6 RDW 13.2 Plt Count 159 MPV 9.2 Neut % (Auto) 53.1 Lymph % (Auto) 32.7 [place] % (Auto) 12.0 H Eos % (Auto) 1.2 Baso % (Auto) 1.0 Neut # (Auto) 4.0 Lymph # (Auto) 2.4 [place] # (Auto) 0.9 Eos # (Auto) 0.1 Baso # (Auto) 0.1 WBC Differential . Differential Comment Auto diff final Fibrinogen 341 Sodium 140 Potassium 3.8 Chloride 108 H Carbon Dioxide 24.1 Anion Gap 8 BUN 16 Creatinine 0.51 L Estimated GFR Greater than 89 Random Glucose 82 Calcium 8.2 L Review/Management - Diagnosis (1) Multiple sclerosis exacerbation Code(s): G35 - Multiple sclerosis Status: Acute Current Visit: Yes - Review/Management Plan: continue plasmapheresis every other day for total of 7 [facility] after pheresis
--- NOTE | 2017-10-24 17:50 | ECG ---
Date Performed: 10/23/2017 Time Performed: 16:41:10 PTAGE: 32 years EKG: Sinus tachycardia Normal ECG except for rate PREVIOUS TRACING : 07/31/2006 18.36 COMPARED TO THE PREVIOUS TRACING SINUS TACHYCARDIA I [place] DOCTOR: Michele Rudd Interpretating Date/Time 10/24/2017 17:48:49
[2017-10-24] MEDS: Baclofen 10 MG Tablet PO SCH (20:12)
[2017-10-24] MEDS: AUBAGIO 14 MG PO SCH (20:12)
[2017-10-24] MEDS: Melatonin 5 MG Tablet PO PRN (20:12)
[2017-10-25] MEDS: clonazePAM 0.5 MG Tablet PO SCH ×3 (05:09→20:42)
[2017-10-25 06:09] LABS: Baso # (Auto) 0.1 th/mm3 (0.0-0.2); Baso % (Auto) 1.1 % (0.0-2.0); Eos # (Auto) 0.1 th/mm3 (0.0-0.4); Eos % (Auto) 1.7 % (0.0-4.0); Hematocrit 35.1 % (39.0-51.0); Hemoglobin 11.7 gm/dL (13.0-17.0); Lymph # (Auto) 2.4 th/mm3 (1.0-4.8); Lymph % (Auto) 32.2 % (9.0-44.0); Mean Corpuscular HGB Conc 33.4 % (32.0-36.0); Mean Corpuscular Hemoglobin 29.4 pg (27.0-34.0); Mean Corpuscular Volume 87.9 fL (80.0-100.0); Mean Platelet Volume 9.6 fL (7.0-11.0); Mono # (Auto) 0.8 th/mm3 (0.0-0.9); Mono % (Auto) 10.3 % (0.0-8.0); Neut # (Auto) 4.1 th/mm3 (1.8-7.7); Neut % (Auto) 54.7 % (16.0-70.0); Platelet Count 177 th/mm3 (150-450); Red Cell Distribution Width 13.6 % (11.6-17.2); White Blood Count 7.4 th/mm3 (4.0-11.0)
[2017-10-25 06:46] LABS: Activated Partial Thrombo Time 28.6 sec (24.3-30.1); Prothrombin Time 10.3 sec (9.8-11.6)
[2017-10-25] MEDS: Sod Chloride 0.9% Inj 1,000 ML IV.SIG SCH ×3 (07:25→19:02)
--- NOTE | 2017-10-25 07:27 | P.PNFP ---
Subjective Interval history: Pt seen and examined. AFVSS. No acute events overnight. Yesterday was plasma exchange #4 out of 7. Pt reports hearing has greatly improved. Still continues to be feel significantly weak. Working with PT. No other complaints. Denies CP, SOB, abdominal pain, N/V. Father reports he feels like his HR is up because he never drinks caffeine at home and he has been drinking a lot of soda in the hospital. Results - Labs Result diagrams: 10/25/17 03:23 10/24/17 04:42 Abnormal lab results 10/25/17 10/25/17 Range/Units 03:23 03:23 RBC 4.00 L (4.50-5.90) mil/mm3 Hgb 11.7 L (13.0-17.0) gm/dL Hct 35.1 L (39.0-51.0) % [place] % (Auto) 10.3 H (0.0-8.0) % Fibrinogen 206 L (227-377) mg/dL Short CBC 10/25/17 Range/Units 03:23 WBC 7.4 (4.0-11.0) th/mm3 Hgb 11.7 L (13.0-17.0) gm/dL Hct 35.1 L (39.0-51.0) % Plt Count 177 (150-450) th/mm3 Physical Exam Vital signs: Vital Signs 10/24/17 08:15 10/24/17 11:05 10/24/17 15:40 Temperature 97.9 F 97.3 F L 98.1 F Pulse Rate 106 H 118 H 111 H Respiratory Rate 18 18 18 Blood Pressure 125/81 113/65 112/72 Pulse Oximetry 99 100 97 10/24/17 20:09 10/25/17 00:00 10/25/17 04:00 Temperature 98.5 F 98.8 F 98.3 F Pulse Rate 109 H 104 H 101 H Respiratory Rate 18 18 Blood Pressure 128/83 125/77 119/84 Pulse Oximetry 98 98 Intake & Output 10/24/17 10/25/17 10/25/17 18:59 06:59 18:59 Intake Total 2900 / 2900 100 / 100 Output Total 1900 / 1900 Balance 1000 / 1000 100 / 100 Intake: IV 2900 / 2900 Alburx 5% Inj 1,900 ML @ 250 1900 / 1900 mls/hr IV.SIG Q48H [facility]ER Rx#: [id number] NS Inj 1,000 ML @ 100 mls/hr IV 1000 / 1000 .SIG .Q10H HARVINDER Rx#:[id number] Oral 100 / 100 Output: Plasma Exchange Amount 1900 / 1900 Other: # Urine Diapers 2 Date of Last Bowel Movement 10/20/17 10/20/17 Narrative: GENERAL: WN, WD thin male resting in bed in NAD. SKIN: Warm and dry. HEART: RRR no m/r/g. LUNGS: CTAB without wheezes or crackles. ABDOMEN: +BS, soft, NT, ND. EXTREMITIES: No LE edema. NEURO: Awake and alert. PSYCH: Appropriate mood and affect. - Urinary Catheter Management Condom Cath placed during this visit: no Assessment and Plan - Assessment (1) Multiple sclerosis Code(s): G35 - Multiple sclerosis Status: Chronic - Assessment and Plan 32 YOWM with history of MS and tobacco abuse admitted on 10/17 for progressive MS causing him to essentially be bedridden despite outpatient IV steroids and aggressive PT. He was admitted by his neurologist for plasmapheresis. 1. Severe multiple sclerosis - Pt with bilateral hearing loss and extreme weakness on presentation - Heme/onc consulted for plasmapheresis - Plan is for plasmapheresis every other day x 7 treatments; initiated 10/18 ( completed four rounds so far) - PT following - Continue home Klonopin, Baclofen and Aubagio 2. HTN - BPs stable - Continue Enalapril 3. Tobacco abuse - Continue nicotine TD 4. Tachycardia - BP has been normal - Encouraged PO intake but advised against excessive caffeine - Continue to monitor DVT prophylaxis: Lovenox Discharge Planning: Once 7 rounds of plasmapheresis is complete
[2017-10-25] MEDS: Enoxaparin Inj 40 MG/0.4 ML Syringe SQ SCH (08:59)
[2017-10-25] MEDS: Captopril 12.5 MG Tablet PO SCH ×2 (09:00→22:11)
[2017-10-25] MEDS: AUBAGIO 14 MG PO SCH (20:42)
[2017-10-25] MEDS: Baclofen 10 MG Tablet PO SCH (20:42)
[2017-10-25] MEDS: Melatonin 5 MG Tablet PO PRN (20:44)
[2017-10-26] MEDS: clonazePAM 0.5 MG Tablet PO SCH ×3 (04:14→20:19)
[2017-10-26 05:13] LABS: Activated Partial Thrombo Time 26.9 sec (24.3-30.1); Prothrombin Time 10.2 sec (9.8-11.6)
[2017-10-26] MEDS: Sod Chloride 0.9% Inj 1,000 ML IV.SIG SCH ×2 (06:15→17:11)
[2017-10-26] MEDS: ALBUMIN HUMAN 5% IV.SIG SCH (09:44)
--- NOTE | 2017-10-26 10:18 | P.PNONC ---
Subjective Interval history: Transport present, patient being transported to dialysis for day #5/7 plasma pheresis treatments. Patient reports that he feels his hearing is improved. He has no complaints at this time. Objective Vital Signs/Intake & Output: Vital Signs 10/25/17 11:00 10/25/17 14:45 10/25/17 21:00 Temperature 98.2 F 98.0 F 98.2 F Pulse Rate 118 H 122 H 133 H Respiratory Rate 16 16 16 Blood Pressure 118/79 114/64 114/77 Pulse Oximetry 99 97 99 10/25/17 23:34 10/26/17 03:00 10/26/17 04:10 Temperature 99.0 F 98.5 F Pulse Rate 117 H 104 H Respiratory Rate 16 16 16 Blood Pressure 93/66 L 122/88 Pulse Oximetry 97 98 Intake & Output 10/25/17 10/26/17 10/26/17 18:59 06:59 18:59 Intake Total 1080 / 1080 2240 / 2240 Output Total 1450 / 1450 4200 / 4200 Balance -370 / -370 -1960 / -1960 Weight 59.8 kg Intake: IV 1999 NS Inj 1,000 ML @ 100 mls/hr IV 1999 .SIG .Q10H [facility]INDER Rx#:[id number] Oral 1080 / 1080 240 / 240 Output: Urine 1450 / 1450 Plasma Exchange Amount 1900 / 1900 Urine Amount (Catheter) 2300 / 2300 Condom 2300 / 2300 Other: Date of Last Bowel Movement 10/26/17 # Incontinent Bowel Movements 1 Result Diagrams: 10/25/17 03:23 10/24/17 04:42 Laboratory Results: Laboratory Results - last 24 hr 10/26/17 04:08 PT 10.2 INR 1.0 APTT 26.9 Fibrinogen 328 Medications: Active Medications Generic Name Dose Route Start Last Admin Trade Name Freq PRN Reason Stop Dose Admin Baclofen 10 mg 10/22/17 21:00 10/25/17 20:42 Lioresal PO 10 mg HS HARVINDER Administration Captopril 12.5 mg 10/17/17 21:00 10/25/17 22:11 Capoten PO Not Given BID HAR[facility]INDER Clonazepam 0.5 mg 10/17/17 20:00 10/26/17 04:14 Klonopin PO 0.5 mg Q8H [facility]INDER Administration Enoxaparin Sodium 40 mg 10/17/17 09:00 10/25/17 08:59 Lovenox Inj SQ 40 mg Q24H HARVINDER Administration Albumin Human 1,900 mls @ 250 mls/hr 10/18/17 12:00 10/26/17 09:44 Alburx 5% Inj IV.SIG 10/30/17 19:35 250 mls/hr Q48H HARVINDER Administration Sodium Chloride 1,000 mls @ 100 mls/hr 10/23/17 18:00 10/26/17 06:15 Ns Inj IV.SIG 100 mls/hr .Q10H HAR[facility]INDER Administration Melatonin 5 mg 10/17/17 21:00 10/25/17 20:44 Melatonin PO 5 mg HS PRN Administration INSOMNIA Nicotine 1 patch 10/17/17 12:00 10/25/17 08:59 Habitrol 14 Mg Patch.24 Hr T-DERMAL 1 patch DAILY HAR[facility]INDER Administration Patch Removal 1 each 10/18/17 09:00 10/25/17 08:59 Remove Old Patch T-DERMAL 1 each DAILY HAR[facility]INDER Administration Patient Own 1 each 10/17/17 21:00 10/25/17 20:42 Medication: Aubagio PO 1 each (Teriflunomide) 14mg HS HARVINDER Administration Tablet Sodium Citrate 1,000 ml 10/18/17 11:08 10/22/17 13:20 Acd-A Solution EXTRACORPO 10/30/17 23:59 1,000 ml UNSCH PRN Administration APHERESIS Temazepam 15 mg 10/17/17 21:00 10/19/17 02:52 Restoril PO 15 mg HS PRN Administration INSOMNIA Objective Remarks: GENERAL: Cachectic young male patient. Lying in bed in no acute distress. SKIN: Warm and dry. HEAD: Normocephalic. Hard of hearing. EYES: No scleral icterus. No injection or drainage. NECK: Supple, trachea midline. CARDIOVASCULAR: Regular rate and rhythm without murmurs. RESPIRATORY: Anterior breath sounds clear, equal bilaterally. GASTROINTESTINAL: Abdomen flat, soft, non-tender, nondistended. EXTREMITIES: No cyanosis or edema. MUSCULOSKELETAL: + Muscle wasting, decreased tone. NEUROLOGICAL: Alert and oriented. Hard of hearing, improving. Assessment/Plan - Plan 32-year-old male with multiple sclerosis exacerbation; hematology consulted for coordination of plasma exchange 1. Plasma exchange initiated on 10/18/2017. Plan is for 7 total treatments, every other day. Patient feels his hearing is improving. 2. He is enroute to plasma exchange #5 today. 2. Monitor CBC, coags, fibrinogen. 3. Continue supportive care. - Attending Statement The exam, history, and the medical decision-making described in the above note were completed with the assistance of the mid-level provider. I reviewed and agree with the findings presented. I attest that I had a [id number] encounter with the patient on the same day, and personally performed and documented my assessment and findings in the medical record. Patient seen and examined. Reports left hearing is better. Offers no complaints during his plasmapheresis. His parents are questions regarding the principal plasmapheresis were answered. I defer to neurology at her questions regarding novel treatment of his MS. We will monitor for anemia.
[2017-10-26] MEDS: Enoxaparin Inj 40 MG/0.4 ML Syringe SQ SCH (11:21)
[2017-10-26] MEDS: Captopril 12.5 MG Tablet PO SCH ×2 (11:21→20:19)
--- NOTE | 2017-10-26 14:07 | P.PNFP ---
Subjective Interval history: Pt seen and examined. Underwent plasmapheresis #5 out of 7 today. Tolerated well. He has no complaints. Reports hearing continues to improve but weakness is unchanged. Results - Labs Result diagrams: 10/25/17 03:23 10/24/17 04:42 Physical Exam Vital signs: Vital Signs 10/25/17 14:45 10/25/17 21:00 10/25/17 23:34 Temperature 98.0 F 98.2 F 99.0 F Pulse Rate 122 H 133 H 117 H Respiratory Rate 16 16 16 Blood Pressure 114/64 114/77 93/66 L Pulse Oximetry 97 99 97 10/26/17 03:00 10/26/17 04:10 10/26/17 07:00 Temperature 98.5 F Pulse Rate 104 H Respiratory Rate 16 16 18 Blood Pressure 122/88 Pulse Oximetry 98 10/26/17 11:00 10/26/17 12:00 Temperature 97.8 F Pulse Rate 113 H Respiratory Rate 18 16 Blood Pressure 111/79 Pulse Oximetry 100 Intake & Output 10/25/17 10/26/17 10/26/17 18:59 06:59 18:59 Intake Total 1080 / 1080 2240 / 2240 1900 / 1900 Output Total 1450 / 1450 4200 / 4200 1900 / 1900 Balance -370 / -370 -1960 / -1960 0 / 0 Weight 59.8 kg Intake: IV 1999 1900 / 1900 Alburx 5% Inj 1,900 ML @ 250 1900 / 1900 mls/hr IV.SIG Q48H [facility] Rx#: [id number] NS Inj 1,000 ML @ 100 mls/hr IV 1999 .SIG .Q10H [facility] Rx#:[id number] Oral 1080 / 1080 240 / 240 Output: Urine 1450 / 1450 Plasma Exchange Amount 1900 / 1900 1900 / 1900 Urine Amount (Catheter) 2300 / 2300 Condom 2300 / 2300 Other: Date of Last Bowel Movement 10/26/17 # Incontinent Bowel Movements 1 Narrative: GENERAL: WN, WD thin male resting in bed in NAD. SKIN: Warm and dry. HEART: Tachycardic with a regular rhythm. No murmurs. LUNGS: CTAB without wheezes or crackles. ABDOMEN: +BS, soft, NT, ND. EXTREMITIES: No LE edema. NEURO: Awake and alert. PSYCH: Flat affect. - Urinary Catheter Management Condom Cath placed during this visit: no Assessment and Plan - Assessment (1) Multiple sclerosis Code(s): G35 - Multiple sclerosis Status: Chronic - Assessment and Plan 32 YOWM with history of MS and tobacco abuse admitted on 10/17 for progressive MS causing him to essentially be bedridden despite outpatient IV steroids and aggressive PT. He was admitted by his neurologist for plasmapheresis. 1. Severe multiple sclerosis - Pt with bilateral hearing loss and extreme weakness on presentation - Heme/onc consulted for plasmapheresis - Plan is for plasmapheresis every other day x 7 treatments; initiated 10/18 ( completed five rounds so far) - PT following - Continue home Klonopin, Baclofen and Aubagio 2. HTN - BPs stable - Continue Enalapril 3. Tobacco abuse - Continue nicotine TD 4. Tachycardia - BP has been normal - Encouraged PO intake but advised against excessive caffeine - Continue to monitor DVT prophylaxis: Lovenox Discharge Planning: Once 7 rounds of plasmapheresis is complete
[2017-10-26] MEDS: Baclofen 10 MG Tablet PO SCH (20:19)
[2017-10-26] MEDS: AUBAGIO 14 MG PO SCH (20:19)
[2017-10-26] MEDS: Melatonin 5 MG Tablet PO PRN (21:30)
[2017-10-27] MEDS: Sod Chloride 0.9% Inj 1,000 ML IV.SIG SCH ×3 (02:48→21:12)
[2017-10-27] MEDS: clonazePAM 0.5 MG Tablet PO SCH ×3 (05:41→21:22)
[2017-10-27 06:35] LABS: Baso # (Auto) 0.1 th/mm3 (0.0-0.2); Eos # (Auto) 0.1 th/mm3 (0.0-0.4); Eos % (Auto) 1.8 % (0.0-4.0); Hematocrit 38.8 % (39.0-51.0); Hemoglobin 12.7 gm/dL (13.0-17.0); Lymph % (Auto) 25.7 % (9.0-44.0); Mean Corpuscular HGB Conc 32.8 % (32.0-36.0); Mean Corpuscular Hemoglobin 28.7 pg (27.0-34.0); Mean Corpuscular Volume 87.5 fL (80.0-100.0); Mono # (Auto) 0.9 th/mm3 (0.0-0.9); Neut # (Auto) 4.7 th/mm3 (1.8-7.7); Neut % (Auto) 60.5 % (16.0-70.0); Platelet Count 215 th/mm3 (150-450); Red Blood Count 4.44 mil/mm3 (4.50-5.90); Red Cell Distribution Width 13.5 % (11.6-17.2); White Blood Count 7.8 th/mm3 (4.0-11.0)
[2017-10-27 07:09] LABS: Anion Gap 8 meq/L (5-15); Blood Urea Nitrogen 7 mg/dL (7-18); Calcium 8.8 mg/dL (8.5-10.1); Carbon Dioxide 26.9 meq/L (21.0-32.0); Chloride 110 meq/L (98-107); Glomerular Filtration Rate Greater Than 89 mL/min (>89); Glucose,Random 84 mg/dL (74-106); Potassium 3.8 meq/L (3.5-5.1); Sodium 145 meq/L (136-145)
[2017-10-27] MEDS: Enoxaparin Inj 40 MG/0.4 ML Syringe SQ SCH (09:09)
[2017-10-27] MEDS: Metoprolol Tartrate 25 MG Tablet PO SCH ×2 (09:17→21:22)
--- NOTE | 2017-10-27 11:00 | P.PNONC ---
Subjective Interval history: Patient lying in bed, awake and alert. He reports his hearing continues to improve. He has no complaints at this time. Yesterday he completed plasma exchange treatment 08/18 for MS. Objective Vital Signs/Intake & Output: Vital Signs 10/26/17 11:00 10/26/17 12:00 10/26/17 15:00 Temperature 97.8 F 98.7 F Pulse Rate 113 H 122 H Respiratory Rate 18 16 18 Blood Pressure 111/79 109/74 Pulse Oximetry 100 97 10/26/17 20:05 10/27/17 00:08 10/27/17 04:53 Temperature 98.4 F 98.7 F 98.1 F Pulse Rate 123 H 99 H 100 H Respiratory Rate 18 16 18 Blood Pressure 114/74 96/73 L 118/97 H Pulse Oximetry 98 95 100 10/27/17 09:07 Temperature 98.7 F Pulse Rate 98 H Respiratory Rate 20 Blood Pressure 119/64 Pulse Oximetry 98 Intake & Output 10/26/17 10/27/17 10/27/17 18:59 06:59 18:59 Intake Total 4239 / 4239 600 / 600 Output Total 3573 / 3573 1750 / 1750 Balance 666 / 666 -1150 / -1150 Weight 58.5 kg Intake: IV 3279 / 3279 Alburx 5% Inj 1,900 ML @ 250 1900 / 1900 mls/hr IV.SIG Q48H [facility] Rx#: [id number] NS Inj 1,000 ML @ 100 mls/hr IV 1379 / 1379 .SIG .Q10H [facility] Rx#:[id number] Oral 960 / 960 600 / 600 Output: Urine 1750 / 1750 Plasma Exchange Amount 1900 / 1900 Urine Amount (Catheter) 1673 / 1673 Condom 1673 / 1673 Other: Date of Last Bowel Movement 10/26/17 10/27/17 10/26/17 # Bowel Movements 1 Result Diagrams: 10/27/17 05:58 10/27/17 05:58 Laboratory Results: Laboratory Results - last 24 hr 10/27/17 10/27/17 05:58 05:58 WBC 7.8 RBC 4.44 L Hgb 12.7 L Hct 38.8 L MCV 87.5 MCH 28.7 MCHC 32.8 RDW 13.5 Plt Count 215 MPV 9.0 Neut % (Auto) 60.5 Lymph % (Auto) 25.7 [place] % (Auto) 11.0 H Eos % (Auto) 1.8 Baso % (Auto) 1.0 Neut # (Auto) 4.7 Lymph # (Auto) 2.0 [place] # (Auto) 0.9 Eos # (Auto) 0.1 Baso # (Auto) 0.1 WBC Differential . Differential Comment Auto diff final Sodium 145 Potassium 3.8 Chloride 110 H Carbon Dioxide 26.9 Anion Gap 8 BUN 7 Creatinine 0.52 L Estimated GFR Greater than 89 Random Glucose 84 Calcium 8.8 Medications: Active Medications Generic Name Dose Route Start Last Admin Trade Name Freq PRN Reason Stop Dose Admin Baclofen 10 mg 10/22/17 21:00 10/26/17 20:19 Lioresal PO 10 mg HS [facility] Administration Clonazepam 0.5 mg 10/17/17 20:00 10/27/17 05:41 Klonopin PO 0.5 mg Q8H [facility] Administration Enoxaparin Sodium 40 mg 10/17/17 09:00 10/27/17 09:09 Lovenox Inj SQ 40 mg Q24H [facility] Administration Albumin Human 1,900 mls @ 250 mls/hr 10/18/17 12:00 10/26/17 10:59 Alburx 5% Inj IV.SIG 10/30/17 19:35 Infused Q48H [facility] Infusion Sodium Chloride 1,000 mls @ 100 mls/hr 10/23/17 18:00 10/27/17 02:48 Ns Inj IV.SIG 100 mls/hr .Q10H [facility] Administration Melatonin 5 mg 10/17/17 21:00 10/26/17 21:30 Melatonin PO 5 mg HS PRN Administration INSOMNIA Metoprolol Tartrate 12.5 mg 10/27/17 09:00 10/27/17 09:17 Lopressor PO 12.5 mg BID [facility] Administration Nicotine 1 patch 10/17/17 12:00 10/27/17 09:13 Habitrol 14 Mg Patch.24 Hr T-DERMAL 1 patch DAILY [facility] Administration Patch Removal 1 each 10/18/17 09:00 10/26/17 11:24 Remove Old Patch T-DERMAL 1 each DAILY [facility] Administration Patient Own 1 each 10/17/17 21:00 10/26/17 20:19 Medication: Aubagio PO 1 each (Teriflunomide) 14mg HS [facility] Administration Tablet Sodium Citrate 1,000 ml 10/18/17 11:08 10/22/17 13:20 Acd-A Solution EXTRACORPO 10/30/17 23:59 1,000 ml UNSCH PRN Administration APHERESIS Temazepam 15 mg 10/17/17 21:00 10/19/17 02:52 Restoril PO 15 mg HS PRN Administration INSOMNIA Objective Remarks: GENERAL: Cachectic young male patient. Lying in bed in no acute distress. SKIN: Warm and dry. HEAD: Normocephalic. EYES: No scleral icterus. No injection or drainage. NECK: Supple, trachea midline. CARDIOVASCULAR: Regular rate and rhythm without murmurs. RESPIRATORY: Anterior breath sounds clear, equal bilaterally. GASTROINTESTINAL: Abdomen flat, soft, non-tender, nondistended. EXTREMITIES: No cyanosis or edema. MUSCULOSKELETAL: + Muscle wasting, decreased tone. NEUROLOGICAL: Alert and oriented. Assessment/Plan (1) Multiple sclerosis Code(s): G35 - Multiple sclerosis Status: Chronic - Plan 32-year-old male with multiple sclerosis exacerbation; hematology consulted for coordination of plasma exchange 1. Plasma exchange initiated on 10/18/2017. Plan is for 7 total treatments, every other day. Subjectively reports hearing improving. 2. Status post plasma exchange 08/18, yesterday. 3. Continue supportive care. - Attending Statement The exam, history, and the medical decision-making described in the above note were completed with the assistance of the mid-level provider. I reviewed and agree with the findings presented. I attest that I had a [id number] encounter with the patient on the same day, and personally performed and documented my assessment and findings in the medical record.Pt completed 08/18 PLEX. Hearing is better. Labs stable. Plan another PLEX tomorrow.
--- NOTE | 2017-10-27 13:24 | P.PNFP ---
Subjective Interval history: Pt seen and examined for f/u progressive MS. Currently hospitalized for plasmapheresis. Completed treatment #5 out of 7 yesterday. Reports hearing has drastically improved. Weakness is unchanged. No other complaints. Denies CP, SOB , palpitations. Results - Labs Result diagrams: 10/27/17 05:58 10/27/17 05:58 Abnormal lab results 10/27/17 10/27/17 Range/Units 05:58 05:58 RBC 4.44 L (4.50-5.90) mil/mm3 Hgb 12.7 L (13.0-17.0) gm/dL Hct 38.8 L (39.0-51.0) % [place] % (Auto) 11.0 H (0.0-8.0) % Chloride 110 H (98-107) meq/L Creatinine 0.52 L (0.60-1.30) mg/dL Short CBC 10/27/17 Range/Units 05:58 WBC 7.8 (4.0-11.0) th/mm3 Hgb 12.7 L (13.0-17.0) gm/dL Hct 38.8 L (39.0-51.0) % Plt Count 215 (150-450) th/mm3 BMP 10/27/17 05:58 Sodium 145 Potassium 3.8 Chloride 110 H Carbon Dioxide 26.9 BUN 7 Creatinine 0.52 L Calcium 8.8 Physical Exam Vital signs: Vital Signs 10/26/17 15:00 10/26/17 20:05 10/27/17 00:08 Temperature 98.7 F 98.4 F 98.7 F Pulse Rate 122 H 123 H 99 H Respiratory Rate 18 18 16 Blood Pressure 109/74 114/74 96/73 L Pulse Oximetry 97 98 95 10/27/17 04:53 10/27/17 09:07 Temperature 98.1 F 98.7 F Pulse Rate 100 H 98 H Respiratory Rate 18 20 Blood Pressure 118/97 H 119/64 Pulse Oximetry 100 98 Intake & Output 10/26/17 10/27/17 10/27/17 18:59 06:59 18:59 Intake Total 4239 / 4239 600 / 600 1000 / 1000 Output Total 3573 / 3573 1750 / 1750 Balance 666 / 666 -1150 / -1150 1000 / 1000 Weight 58.5 kg Intake: IV 3279 / 3279 1000 / 1000 Alburx 5% Inj 1,900 ML @ 250 1900 / 1900 mls/hr IV.SIG Q48H [facility] Rx#: [id number] NS Inj 1,000 ML @ 100 mls/hr IV 1379 / 1379 1000 / 1000 .SIG .Q10H [facility] Rx#:[id number] Oral 960 / 960 600 / 600 Output: Urine 1750 / 1750 Plasma Exchange Amount 1900 / 1900 Urine Amount (Catheter) 1673 / 1673 Condom 1673 / 1673 Other: Date of Last Bowel Movement 10/26/17 10/27/17 10/26/17 # Bowel Movements 1 Narrative: GENERAL: WN, WD thin male resting in bed in NAD. SKIN: Warm and dry. HEART: Tachycardic with a regular rhythm. No murmurs. LUNGS: CTAB without wheezes or crackles. ABDOMEN: +BS, soft, NT, ND. EXTREMITIES: No LE edema. NEURO: Awake and alert. - Urinary Catheter Management Condom Cath placed during this visit: no Assessment and Plan - Assessment (1) Multiple sclerosis Code(s): G35 - Multiple sclerosis Status: Chronic - Assessment and Plan 32 YOWM with history of MS and tobacco abuse admitted on 10/17 for progressive MS causing him to essentially be bedridden despite outpatient IV steroids and aggressive PT. He was admitted by his neurologist for plasmapheresis. 1. Severe multiple sclerosis - Pt with bilateral hearing loss and extreme weakness on presentation - Heme/onc consulted for plasmapheresis - Plan is for plasmapheresis every other day x 7 treatments; initiated 10/18 ( completed five rounds so far) - PT following - Continue home Klonopin, Baclofen and Aubagio 2. HTN - BPs stable - Change Enalapril to metoprolol since tachycardic 3. Tobacco abuse - Continue nicotine TD 4. Tachycardia - BP has been normal - Starting metoprolol as above - Avoid caffeine - Possibly nicotine patch contributing? - Continue to monitor DVT prophylaxis: Lovenox Discharge Planning: Once 7 rounds of plasmapheresis is complete
--- NOTE | 2017-10-27 17:53 | P.PNNEU ---
Subjective Subjective Comments: No acute events reported He has had 5 treatments of plasmapheresis and tolerated them well. He feels he has had significant improvement in his hearing and feels mild improvement in LE strength and coordination of arms Active Medications: Active Medications Acetaminophen (Tylenol) 650 mg PO Q4H PRN PRN Reason: Headache, fever, pain 1-4 Al Hydroxide/Mg Hydroxide (Milk Of Magnesia Liq) 30 ml PO Q12H PRN PRN Reason: Mild Constipation Baclofen (Lioresal) 10 mg PO HS [facility] Last Admin: 10/26/17 20:19 Dose: 10 mg Bisacodyl (Dulcolax Supp) 10 mg RECTAL DAILY PRN PRN Reason: SEVERE CONSITIPATION Clonazepam (Klonopin) 0.5 mg PO Q8H [facility] Last Admin: 10/27/17 12:06 Dose: 0.5 mg Diphenhydramine HCl (Benadryl Inj) 25 mg IV.PUSH UNSCH PRN PRN Reason: ALLERGIC REACTION Stop: 10/30/17 23:59 Enoxaparin Sodium (Lovenox Inj) 40 mg SQ Q24H [facility] Last Admin: 10/27/17 09:09 Dose: 40 mg Heparin Sodium (Porcine) (Heparin Inj) 5,000 unit IV.SIG UNSCH PRN PRN Reason: FLUSH AFTER USING IV ACCESS Stop: 10/30/17 23:59 Albumin Human (Alburx 5% Inj) 1,900 mls @ 250 mls/hr IV.SIG Q48H [facility] Stop: 10/30/17 19:35 Last Infusion: 10/26/17 10:59 Dose: Infused Sodium Chloride (Ns Inj) 1,000 mls @ 0 mls/hr IV.SIG .Q0M PRN PRN Reason: APHERESIS Stop: 10/30/17 23:59 Sodium Chloride (Ns Inj) 1,000 mls @ 100 mls/hr IV.SIG .Q10H [facility] Last Admin: 10/27/17 12:07 Dose: 100 mls/hr Lactulose (Lactulose Liq) 30 ml PO DAILY PRN PRN Reason: SEVERE CONSITIPATION Melatonin (Melatonin) 5 mg PO HS PRN PRN Reason: INSOMNIA Last Admin: 10/26/17 21:30 Dose: 5 mg Metoprolol Tartrate (Lopressor) 12.5 mg PO BID [facility] Last Admin: 10/27/17 09:17 Dose: 12.5 mg Miscellaneous (Pill Splitter) 1 each OTHER UNSCH [facility] Nicotine (Habitrol 14 Mg Patch.24 Hr) 1 patch T-DERMAL DAILY [facility] Last Admin: 10/27/17 09:13 Dose: 1 patch Ondansetron HCl (Zofran Odt) 4 mg PO Q6H PRN PRN Reason: NAUSEA OR VOMITING Patch Removal (Remove Old Patch) 1 each T-DERMAL DAILY [facility] Last Admin: 10/27/17 12:08 Dose: Not Given Patient Own Medication: Aubagio (Teriflunomide) 14mg Tablet 1 each PO HS [facility] Last Admin: 10/26/17 20:19 Dose: 1 each Sennosides (Senokot) 17.2 mg PO Q12H PRN PRN Reason: Moderate Constipation Sodium Chloride (Ns Flush) 10 ml IV.FLUSH UNSCH PRN PRN Reason: FLUSH AFTER USING IV ACCESS Stop: 10/30/17 23:59 Sodium Citrate (Acd-A Solution) 1,000 ml EXTRACORPO UNSCH PRN PRN Reason: APHERESIS Stop: 10/30/17 23:59 Last Admin: 10/22/17 13:20 Dose: 1,000 ml Temazepam (Restoril) 15 mg PO HS PRN PRN Reason: INSOMNIA Last Admin: 10/19/17 02:52 Dose: 15 mg Allergies/Adverse Reactions: Allergies Allergy/AdvReac Type Severity Reaction Status Date / Time No Known Allergies Allergy Uncoded 11/22/16 20:31 Physical Exam Vital signs: Vital Signs 10/26/17 20:05 10/27/17 00:08 10/27/17 04:53 Temperature 98.4 F 98.7 F 98.1 F Pulse Rate 123 H 99 H 100 H Respiratory Rate 18 16 18 Blood Pressure 114/74 96/73 L 118/97 H Pulse Oximetry 98 95 100 10/27/17 09:07 10/27/17 15:44 Temperature 98.7 F 98.5 F Pulse Rate 98 H 70 Respiratory Rate 20 12 Blood Pressure 119/64 123/69 Pulse Oximetry 98 98 Intake & Output 10/26/17 10/27/17 10/27/17 18:59 06:59 18:59 Intake Total 4239 / 4239 600 / 600 1840 / 1840 Output Total 3573 / 3573 1750 / 1750 1350 / 1350 Balance 666 / 666 -1150 / -1150 490 / 490 Weight 58.5 kg Intake: IV 3279 / 3279 1000 / 1000 Alburx 5% Inj 1,900 ML @ 250 1900 / 1900 mls/hr IV.SIG Q48H [facility] Rx#: [id number] NS Inj 1,000 ML @ 100 mls/hr IV 1379 / 1379 1000 / 1000 .SIG .Q10H [facility] Rx#:[id number] Oral 960 / 960 600 / 600 840 / 840 Output: Urine 1750 / 1750 Plasma Exchange Amount 1900 / 1900 Urine Amount (Catheter) 1673 / 1673 1350 / 1350 Condom 1673 / 1673 1350 / 1350 Other: Date of Last Bowel Movement 10/26/17 10/27/17 10/27/17 # Bowel Movements 1 1 - Routine Neurological Exam alert, speech normal Cn intact MOTOR 5/5 bue, 1/5 LLE, 3/5 RLE - Urinary Catheter Management Condom Cath placed during this visit: no Objective Laboratory Results - last 24 hr 10/27/17 10/27/17 05:58 05:58 WBC 7.8 RBC 4.44 L Hgb 12.7 L Hct 38.8 L MCV 87.5 MCH 28.7 MCHC 32.8 RDW 13.5 Plt Count 215 MPV 9.0 Neut % (Auto) 60.5 Lymph % (Auto) 25.7 [place] % (Auto) 11.0 H Eos % (Auto) 1.8 Baso % (Auto) 1.0 Neut # (Auto) 4.7 Lymph # (Auto) 2.0 [place] # (Auto) 0.9 Eos # (Auto) 0.1 Baso # (Auto) 0.1 WBC Differential . Differential Comment Auto diff final Sodium 145 Potassium 3.8 Chloride 110 H Carbon Dioxide 26.9 Anion Gap 8 BUN 7 Creatinine 0.52 L Estimated GFR Greater than 89 Random Glucose 84 Calcium 8.8 Review/Management - Diagnosis (1) Multiple sclerosis exacerbation Code(s): G35 - Multiple sclerosis Status: Acute Current Visit: Yes - Review/Management Plan: continue plasmapheresis every other day for total of 7 [facility] after pheresis
--- NOTE | 2017-10-27 18:59 | ECG ---
Date Performed: 10/27/2017 Time Performed: 08:18:56 PTAGE: 32 years EKG: Sinus rhythm NORMAL ECG Compared to PREVIOUS TRACING , sinus rate is slower. PREVIOUS TRACIN10/23/2017 16.41 DOCTOR: Quirino Marquez Interpretating Date/Time 10/27/2017 18:57:35
[2017-10-27] MEDS: Baclofen 10 MG Tablet PO SCH (21:21)
[2017-10-27] MEDS: AUBAGIO 14 MG PO SCH (21:23)
[2017-10-27] MEDS: Melatonin 5 MG Tablet PO PRN (21:35)
[2017-10-28] MEDS: clonazePAM 0.5 MG Tablet PO SCH ×3 (04:28→21:18)
[2017-10-28] MEDS: Enoxaparin Inj 40 MG/0.4 ML Syringe SQ SCH (08:52)
[2017-10-28] MEDS: Metoprolol Tartrate 25 MG Tablet PO SCH ×2 (08:52→21:16)
--- NOTE | 2017-10-28 09:31 | P.PN ---
Physical Exam Vital signs: Vital Signs 10/27/17 15:44 10/27/17 19:00 10/28/17 01:00 Temperature 98.5 F 98.8 F 98 F Pulse Rate 70 128 H 99 H Respiratory Rate 12 16 16 Blood Pressure 123/69 118/87 112/77 Pulse Oximetry 98 96 98 10/28/17 04:22 10/28/17 07:00 Temperature 97.9 F 98 F Pulse Rate 96 H 95 H Respiratory Rate 16 16 Blood Pressure 110/75 121/82 Pulse Oximetry 99 95 Intake & Output 10/27/17 10/28/17 10/28/17 18:59 06:59 18:59 Intake Total 1840 / 1840 1150 / 1150 Output Total 1350 / 1350 1950 / 1950 Balance 490 / 490 -800 / -800 Weight 53.3 kg Intake: IV 1000 / 1000 1000 / 1000 NS Inj 1,000 ML @ 100 mls/hr IV 1000 / 1000 1000 / 1000 .SIG .Q10H [facility] Rx#:[id number] Oral 840 / 840 150 / 150 Output: Urine 600 / 600 Urine Amount (Catheter) 1350 / 1350 1350 / 1350 Condom 1350 / 1350 1350 / 1350 Other: # Voids 1 Date of Last Bowel Movement 10/27/17 10/27/17 # Bowel Movements 1 Narrative: Subjective Interval history: Patient in nad. Patient feesl tired, in bed. BP is better controlled no more tachycardia. Not eating much. No n/v/d/c. Family his father at bedside very supportive. Physical Exam GENERAL: Cachectic young male resting in bed in NAD. SKIN: Warm and dry. HEART: Tachycardic with a regular rhythm. No murmurs. LUNGS: CTAB without wheezes or crackles. ABDOMEN: +BS, soft, NT, ND. EXTREMITIES: No LE edema. NEURO: Awake and alert. Assessment and plan: 32 YOWM with history of MS and tobacco abuse admitted on 10/17 for progressive MS causing him to essentially be bedridden despite outpatient IV steroids and aggressive PT. He was admitted by his neurologist for plasmapheresis. 1. Severe multiple sclerosis - Pt with bilateral hearing loss and extreme weakness on presentation - Heme/onc consulted for plasmapheresis - Plan is for plasmapheresis every other day x 7 treatments; initiated 10/18 ( completed five rounds so far) - PT following - Continue home Klonopin, Baclofen and Aubagio 2. HTN - BPs stable - Change Enalapril to metoprolol since tachycardic 3. Tobacco abuse - Continue nicotine TD 4. Tachycardia - BP has been normal - Starting metoprolol as above - Avoid caffeine - Possibly nicotine patch contributing? - Continue to monitor 5. Severe protein calorie malnutrition: - Catastrophe Claims Supervisor consulted - Ensure TID with meals - Encourage PO intake DVT prophylaxis: Lovenox Discharge Planning: to complete 7 rounds of plasmapheresis , plan to DC to [facility] - Urinary Catheter Management Condom Cath placed during this visit: no Results - Labs CBC & Chem 7: 10/27/17 05:58 10/27/17 05:58 - Procedures Vas-Cath placement 10/17/2017 by interventional radiology. Assessment and Plan - Assessment (1) Multiple sclerosis Code(s): G35 - Multiple sclerosis Status: Chronic
--- NOTE | 2017-10-28 13:53 | P.PNONC ---
Subjective Interval history: Patient is lying in bed, in no acute distress. OT is at the bedside working with the patient. Patient has no current complaints. He reports that his hearing still continues to improve. His father states that he was able to hear things from the hallway. Patient also lifting his arms to show me his improved control. OT reports that he was able to feed himself most of his lunch. Objective Vital Signs/Intake & Output: Vital Signs 10/27/17 15:44 10/27/17 19:00 10/28/17 01:00 Temperature 98.5 F 98.8 F 98 F Pulse Rate 70 128 H 99 H Respiratory Rate 12 16 16 Blood Pressure 123/69 118/87 112/77 Pulse Oximetry 98 96 98 10/28/17 04:22 10/28/17 07:00 10/28/17 12:49 Temperature 97.9 F 98 F 98.0 F Pulse Rate 96 H 95 H 99 H Respiratory Rate 16 16 20 Blood Pressure 110/75 121/82 142/85 H Pulse Oximetry 99 95 100 Intake & Output 10/27/17 10/28/17 10/28/17 18:59 06:59 18:59 Intake Total 1840 / 1840 1150 / 1150 Output Total 1350 / 1350 1950 / 1950 Balance 490 / 490 -800 / -800 Weight 53.3 kg Intake: IV 1000 / 1000 1000 / 1000 NS Inj 1,000 ML @ 100 mls/hr IV 1000 / 1000 1000 / 1000 .SIG .Q10H [facility] Rx#:[id number] Oral 840 / 840 150 / 150 Output: Urine 600 / 600 Urine Amount (Catheter) 1350 / 1350 1350 / 1350 Condom 1350 / 1350 1350 / 1350 Other: # Voids 1 Date of Last Bowel Movement 10/27/17 10/27/17 10/27/17 # Bowel Movements 1 Result Diagrams: 10/27/17 05:58 10/27/17 05:58 Medications: Active Medications Generic Name Dose Route Start Last Admin Trade Name Freq PRN Reason Stop Dose Admin Baclofen 10 mg 10/22/17 21:00 10/27/17 21:21 Lioresal PO 10 mg HS [facility] Administration Clonazepam 0.5 mg 10/17/17 20:00 10/28/17 12:58 Klonopin PO Not Given Q8H [facility] Enoxaparin Sodium 40 mg 10/17/17 09:00 10/28/17 08:52 Lovenox Inj SQ 40 mg Q24H [facility] Administration Albumin Human 1,900 mls @ 250 mls/hr 10/18/17 12:00 10/26/17 10:59 Alburx 5% Inj IV.SIG 10/30/17 19:35 Infused Q48H [facility] Infusion Sodium Chloride 1,000 mls @ 100 mls/hr 10/23/17 18:00 10/27/17 21:12 Ns Inj IV.SIG 100 mls/hr .Q10H [facility] Administration Melatonin 5 mg 10/17/17 21:00 10/27/17 21:35 Melatonin PO 5 mg HS PRN Administration INSOMNIA Metoprolol Tartrate 12.5 mg 10/27/17 09:00 10/28/17 08:52 Lopressor PO 12.5 mg BID [facility] Administration Nicotine 1 patch 10/17/17 12:00 10/28/17 08:53 Habitrol 14 Mg Patch.24 Hr T-DERMAL 1 patch DAILY [facility] Administration Patch Removal 1 each 10/18/17 09:00 10/28/17 08:53 Remove Old Patch T-DERMAL 1 each DAILY [facility] Administration Patient Own 1 each 10/17/17 21:00 10/27/17 21:23 Medication: Aubagio PO 1 each (Teriflunomide) 14mg HS HARVINDER Administration Tablet Sodium Citrate 1,000 ml 10/18/17 11:08 10/22/17 13:20 Acd-A Solution EXTRACORPO 10/30/17 23:59 1,000 ml UNSCH PRN Administration APHERESIS Temazepam 15 mg 10/17/17 21:00 10/19/17 02:52 Restoril PO 15 mg HS PRN Administration INSOMNIA Objective Remarks: GENERAL: Cachectic young male patient. Lying in bed, currently working with OT. SKIN: Warm and dry. HEAD: Normocephalic. EYES: No scleral icterus. No injection or drainage. NECK: Supple, trachea midline. CARDIOVASCULAR: + S1/S2. Regular rate and rhythm without murmurs. RESPIRATORY: Anterior breath sounds clear, equal bilaterally. GASTROINTESTINAL: Abdomen flat, soft, non-tender, nondistended. EXTREMITIES: No cyanosis or edema. MUSCULOSKELETAL: + Muscle wasting & decreased tone. Increased control of upper extremities. NEUROLOGICAL: Alert and oriented. Assessment/Plan (1) Multiple sclerosis Code(s): G35 - Multiple sclerosis Status: Chronic - Plan 32-year-old male with multiple sclerosis exacerbation; hematology consulted for coordination of plasma exchange 1. Plasma exchange initiated on 10/18/2017. Plan is for 7 total treatments, every other day. Subjectively reports hearing improving. 2. Status post plasma exchange 09/18 today. He is tolerating well. He will have his final treatment on 10/30/17. 3. Continue supportive care. - Attending Statement The exam, history, and the medical decision-making described in the above note were completed with the assistance of the mid-level provider. I reviewed and agree with the findings presented. I attest that I had a [id number] encounter with the patient on the same day, and personally performed and documented my assessment and findings in the medical record. Patient is feeling stronger. He denies any bleeding. He will have plasma pheresis #6 today. His last pheresis is going to be on . Continue to monitor labs.
[2017-10-28] MEDS: ALBUMIN HUMAN 5% IV.SIG SCH (19:00)
[2017-10-28] MEDS: Calcium Carbonate 500 MG Tablet PO PRN (19:00)
[2017-10-28] MEDS: Anticoagulant Citrate Dextrose 1,000 ML Solution EXTRACORPO PRN (19:00)
[2017-10-28] MEDS: Melatonin 5 MG Tablet PO PRN (21:16)
[2017-10-28] MEDS: Baclofen 10 MG Tablet PO SCH (21:16)
[2017-10-28] MEDS: AUBAGIO 14 MG PO SCH (21:18)
[2017-10-29] MEDS: Sod Chloride 0.9% Inj 1,000 ML IV.SIG SCH ×5 (01:01→21:18)
[2017-10-29] MEDS: clonazePAM 0.5 MG Tablet PO SCH ×3 (04:30→21:07)
--- NOTE | 2017-10-29 08:17 | P.PNONC ---
Subjective Interval history: Patient denies any bleeding. He has no chest pain or shortness of breath. His hearing continue to improve. He still has lower extremity weakness. Objective Vital Signs/Intake & Output: Vital Signs 10/28/17 12:49 10/28/17 16:39 10/28/17 17:00 Temperature 98.0 F 98.8 F Pulse Rate 99 H 110 H Respiratory Rate 20 20 20 Blood Pressure 142/85 H 130/94 H Pulse Oximetry 100 97 10/28/17 21:04 10/29/17 04:20 Temperature 98.7 F 98.5 F Pulse Rate 119 H 94 H Respiratory Rate 18 16 Blood Pressure 128/79 114/74 Pulse Oximetry 100 98 Intake & Output 10/28/17 10/29/17 10/29/17 18:59 06:59 18:59 Intake Total 1000 / 1000 720 / 720 Output Total 450 / 450 1225 / 1225 Balance 550 / 550 -505 / -505 Weight 60.2 kg Intake: IV 1000 / 1000 NS Inj 1,000 ML @ 100 mls/hr IV 1000 / 1000 .SIG .Q10H [facility] Rx#:[id number] Oral 720 / 720 Output: Urine 450 / 450 1225 / 1225 Other: # Voids 4 Date of Last Bowel Movement 10/28/17 10/28/17 Result Diagrams: 10/27/17 05:58 10/27/17 05:58 Medications: Active Medications Generic Name Dose Route Start Last Admin Trade Name Freq PRN Reason Stop Dose Admin Baclofen 10 mg 10/22/17 21:00 10/28/17 21:16 Lioresal PO 10 mg HS [facility] Administration Clonazepam 0.5 mg 10/17/17 20:00 10/29/17 04:30 Klonopin PO 0.5 mg Q8H [facility] Administration Enoxaparin Sodium 40 mg 10/17/17 09:00 10/28/17 08:52 Lovenox Inj SQ 40 mg Q24H [facility] Administration Albumin Human 1,900 mls @ 250 mls/hr 10/18/17 12:00 10/26/17 10:59 Alburx 5% Inj IV.SIG 10/30/17 19:35 Infused Q48H [facility] Infusion Sodium Chloride 1,000 mls @ 100 mls/hr 10/23/17 18:00 10/29/17 01:01 Ns Inj IV.SIG 100 mls/hr .Q10H [facility] Administration Melatonin 5 mg 10/17/17 21:00 10/28/17 21:16 Melatonin PO 5 mg HS PRN Administration INSOMNIA Metoprolol Tartrate 12.5 mg 10/27/17 09:00 10/28/17 21:16 Lopressor PO 12.5 mg BID [facility] Administration Nicotine 1 patch 10/17/17 12:00 10/28/17 08:53 Habitrol 14 Mg Patch.24 Hr T-DERMAL 1 patch DAILY [facility] Administration Patch Removal 1 each 10/18/17 09:00 10/28/17 08:53 Remove Old Patch T-DERMAL 1 each DAILY [facility] Administration Patient Own 1 each 10/17/17 21:00 10/28/17 21:18 Medication: Aubagio PO 1 each (Teriflunomide) 14mg HS [facility] Administration Tablet Sodium Citrate 1,000 ml 10/18/17 11:08 10/22/17 13:20 Acd-A Solution EXTRACORPO 10/30/17 23:59 1,000 ml UNSCH PRN Administration APHERESIS Temazepam 15 mg 10/17/17 21:00 10/19/17 02:52 Restoril PO 15 mg HS PRN Administration INSOMNIA Objective Remarks: GENERAL: Well-nourished, well-developed patient. Cachectic. Heart and hearing. SKIN: Warm and dry. HEAD: Normocephalic. EYES: No scleral icterus. No injection or drainage. NECK: Supple, trachea midline. No JVD or lymphadenopathy. LYMPHATIC: No adenopathy. CARDIOVASCULAR: Regular rate and rhythm without murmurs. RESPIRATORY: Breath sounds equal bilaterally. No accessory muscle use. GASTROINTESTINAL: Abdomen soft, non-tender, nondistended. EXTREMITIES: No cyanosis, or edema. MUSCULOSKELETAL: Adequate muscle tone. NEUROLOGICAL: Awake, alert, and oriented x3. Lower extremities paralysis. PSYCHIATRIC: Appropriate mood and affect; insight and judgment normal. Assessment/Plan (1) Multiple sclerosis Code(s): G35 - Multiple sclerosis Status: Chronic - Plan 32-year-old male with multiple sclerosis exacerbation; hematology consulted for coordination of plasma exchange 1. Plasma exchange initiated on 10/18/2017. Plan is for 7 total treatments, every other day. Subjectively reports hearing improving. Still has lower extremity paralysis. 2. He will have his final treatment on 10/30/17. 3. Continue supportive care.
[2017-10-29] MEDS: Metoprolol Tartrate 25 MG Tablet PO SCH ×3 (10:51→21:07)
[2017-10-29] MEDS: Enoxaparin Inj 40 MG/0.4 ML Syringe SQ SCH (10:51)
--- NOTE | 2017-10-29 14:36 | P.PN ---
Physical Exam Vital signs: Vital Signs 10/28/17 16:39 10/28/17 17:00 10/28/17 21:04 Temperature 98.8 F 98.7 F Pulse Rate 110 H 119 H Respiratory Rate 20 20 18 Blood Pressure 130/94 H 128/79 Pulse Oximetry 97 100 10/29/17 04:20 10/29/17 11:00 Temperature 98.5 F 97.8 F Pulse Rate 94 H 100 H Respiratory Rate 16 22 Blood Pressure 114/74 100/80 Pulse Oximetry 98 96 Intake & Output 10/28/17 10/29/17 10/29/17 18:59 06:59 18:59 Intake Total 1000 / 1000 720 / 720 1000 / 1000 Output Total 450 / 450 1225 / 1225 Balance 550 / 550 -505 / -505 1000 / 1000 Weight 60.2 kg Intake: IV 1000 / 1000 1000 / 1000 NS Inj 1,000 ML @ 100 mls/hr IV 1000 / 1000 1000 / 1000 .SIG .Q10H [facility] Rx#:[id number] Oral 720 / 720 Output: Urine 450 / 450 1225 / 1225 Other: # Voids 4 Date of Last Bowel Movement 10/28/17 10/28/17 Narrative: Subjective Interval history: Patient in nad. In bed sleepy feels tired. No fever or chills. Eating better. BP better controlled. No n/v/d/c. Seems weakness improving. Nimisha improving. Physical Exam GENERAL: Cachectic young male resting in bed in NAD. SKIN: Warm and dry. HEART: Tachycardic with a regular rhythm. No murmurs. LUNGS: CTAB without wheezes or crackles. ABDOMEN: +BS, soft, NT, ND. EXTREMITIES: No LE edema. NEURO: Awake and alert. Decreased hearing. Assessment and plan: 32 YOWM with history of MS and tobacco abuse admitted on 10/17 for progressive MS causing him to essentially be bedridden despite outpatient IV steroids and aggressive PT. He was admitted by his neurologist for plasmapheresis. 1. Severe multiple sclerosis - Pt with bilateral hearing loss and extreme weakness on presentation - Heme/onc consulted for plasmapheresis - Plan is for plasmapheresis every other day x 7 treatments; initiated 10/18 ( completed five rounds so far) - PT following - Continue home Klonopin, Baclofen and Aubagio 2. HTN - BPs stable - Change Enalapril to metoprolol since tachycardic 3. Tobacco abuse - Continue nicotine TD 4. Tachycardia - BP has been normal - Starting metoprolol as above - Avoid caffeine - Possibly nicotine patch contributing? - Continue to monitor 5. Severe protein calorie malnutrition: - Manager Order consulted - Ensure TID with meals - Encourage PO intake DVT prophylaxis: Lovenox Discharge Planning: to complete 7 rounds of plasmapheresis , plan to DC to [facility] - Urinary Catheter Management Condom Cath placed during this visit: no Results - Labs CBC & Chem 7: 10/27/17 05:58 10/27/17 05:58 - Procedures Vas-Cath placement 10/17/2017 by interventional radiology. Assessment and Plan - Assessment (1) Multiple sclerosis Code(s): G35 - Multiple sclerosis Status: Chronic
--- NOTE | 2017-10-29 14:53 | P.DIET ---
Nutritional Evaluation Type of nutrition evaluation: follow-up Nutrition consult regarding: Diet Evaluation (MDC for Malnutrition) Nutrition screening: Poor PO Intake Subjective Subjective Comments: Pt states his hearing is better. When I ask how his appetite is doing he gives me a grin and two thumbs up. He tells me he's eating 100% of all three meals most of the time. I asked if he's drinking his Enlive supplements and says no b/ c his father is taking them home when he sees them. I told pt they are for him now while he's in the hospital and if he needs some for discharge we could do that. Denied N/V/D/C. Denied trouble chewing/swallowing. Still requires help w/ feeding himself. Tells me he needs assistance w/ "directing" his utensil into his mouth, but he can hold onto it himself. Objective - Diagnosis MS - Objective % IBW: 72 (CTV=811#) Body Weight Used for Calculations: IBW (83.6kg) Energy Needs - Lower Range (kCal/kg): 25 Energy Needs - Upper Range (kCal/kg): 30 Lower Limit kCal/kg (kCals): 2,090 Upper Limit kCal/kg (kCals): 2,508 Lower Limit Protein Factor (Grams per Kg): 1.1 Upper Limit Protein Factor (Grams per Kg): 1.3 Lower Protein Needs (Protein): 92 Upper Protein Needs (Protein): 109 Dietitian Reviewed in Medical Record: Current diet, Curent medications, Intake & Output, Labs, Medical history Diet Order: Regular, Ensure BID Oral Diet Intake Amount: Good 75-90% Objective Comments: LBM 10/27 6 of 7 plasmapheresis treatments. Last one tomorrow. Feeding - Current PO Supplement Current Supplement: Ensure Enlive Current Frequency of Supplement: Three times a day Current kCals Provided by Supplement: 350 Current Protein Provided by Supplement: 20 Assessment Assessment: Pt remains on a Regular diet w/ Enlive TID. He tells me he's eating all of his food, but is NOT drinking his supplements b/c his dad is taking them home. I have not met the father. I discussed the need to drink his supplements here in the hospital. Continue Enlive TID w/ encouragement to drink them now. Still requires feeding assistance. Final plasmapheresis is tomorrow. Continue current POC. Dietitian following. Recommendations: 1. Continue Regular diet. 2. Enlive TID. Encourage pt to drink these in the hospital and not have father take them home (per pt). Dietitian to Monitor: Lab values, Supplement acceptance, Intake & Output, Diet tolerance, Weight change, PO Intake, Medical course
--- NOTE | 2017-10-29 17:48 | P.PNNEU ---
Subjective Subjective Comments: No acute events reported Pt reports no change in left leg strength but his father feels his right leg strength had improved with plasmapheresis and his hearing has improved Active Medications: Active Medications Acetaminophen (Tylenol) 650 mg PO Q4H PRN PRN Reason: Headache, fever, pain 1-4 Last Admin: 10/29/17 10:54 Dose: 650 mg Al Hydroxide/Mg Hydroxide (Milk Of Magnesia Liq) 30 ml PO Q12H PRN PRN Reason: Mild Constipation Baclofen (Lioresal) 10 mg PO HS [facility] Last Admin: 10/28/17 21:16 Dose: 10 mg Bisacodyl (Dulcolax Supp) 10 mg RECTAL DAILY PRN PRN Reason: SEVERE CONSITIPATION Clonazepam (Klonopin) 0.5 mg PO Q8H [facility] Last Admin: 10/29/17 11:05 Dose: 0.5 mg Diphenhydramine HCl (Benadryl Inj) 25 mg IV.PUSH UNSCH PRN PRN Reason: ALLERGIC REACTION Stop: 10/30/17 23:59 Enoxaparin Sodium (Lovenox Inj) 40 mg SQ Q24H [facility] Last Admin: 10/29/17 10:51 Dose: 40 mg Heparin Sodium (Porcine) (Heparin Inj) 5,000 unit IV.SIG UNSCH PRN PRN Reason: FLUSH AFTER USING IV ACCESS Stop: 10/30/17 23:59 Albumin Human (Alburx 5% Inj) 1,900 mls @ 250 mls/hr IV.SIG Q48H [facility] Stop: 10/30/17 19:35 Last Infusion: 10/28/17 20:00 Dose: Infused Sodium Chloride (Ns Inj) 1,000 mls @ 0 mls/hr IV.SIG .Q0M PRN PRN Reason: APHERESIS Stop: 10/30/17 23:59 Sodium Chloride (Ns Inj) 1,000 mls @ 100 mls/hr IV.SIG .Q10H [facility] Last Admin: 10/29/17 16:55 Dose: Not Given Lactulose (Lactulose Liq) 30 ml PO DAILY PRN PRN Reason: SEVERE CONSITIPATION Melatonin (Melatonin) 5 mg PO HS PRN PRN Reason: INSOMNIA Last Admin: 10/28/17 21:16 Dose: 5 mg Metoprolol Tartrate (Lopressor) 12.5 mg PO BID [facility] Last Admin: 10/29/17 11:00 Dose: Not Given Miscellaneous (Pill Splitter) 1 each OTHER UNSCH [facility] Nicotine (Habitrol 14 Mg Patch.24 Hr) 1 patch T-DERMAL DAILY [facility] Last Admin: 10/29/17 10:51 Dose: 1 patch Ondansetron HCl (Zofran Odt) 4 mg PO Q6H PRN PRN Reason: NAUSEA OR VOMITING Patch Removal (Remove Old Patch) 1 each T-DERMAL DAILY [facility] Last Admin: 10/29/17 10:51 Dose: 1 each Patient Own Medication: Aubagio (Teriflunomide) 14mg Tablet 1 each PO HS [facility] Last Admin: 10/28/17 21:18 Dose: 1 each Sennosides (Senokot) 17.2 mg PO Q12H PRN PRN Reason: Moderate Constipation Sodium Chloride (Ns Flush) 10 ml IV.FLUSH UNSCH PRN PRN Reason: FLUSH AFTER USING IV ACCESS Stop: 10/30/17 23:59 Sodium Citrate (Acd-A Solution) 1,000 ml EXTRACORPO UNSCH PRN PRN Reason: APHERESIS Stop: 10/30/17 23:59 Last Admin: 10/28/17 19:00 Dose: 1,000 ml Temazepam (Restoril) 15 mg PO HS PRN PRN Reason: INSOMNIA Last Admin: 10/19/17 02:52 Dose: 15 mg Allergies/Adverse Reactions: Allergies Allergy/AdvReac Type Severity Reaction Status Date / Time No Known Allergies Allergy Uncoded 11/22/16 20:31 Physical Exam Vital signs: Vital Signs 10/28/17 21:04 10/29/17 04:20 10/29/17 11:00 Temperature 98.7 F 98.5 F 97.8 F Pulse Rate 119 H 94 H 100 H Respiratory Rate 18 16 22 Blood Pressure 128/79 114/74 100/80 Pulse Oximetry 100 98 96 10/29/17 15:00 Temperature Pulse Rate 91 H Respiratory Rate 18 Blood Pressure 133/95 H Pulse Oximetry 100 Intake & Output 10/28/17 10/29/17 10/29/17 18:59 06:59 18:59 Intake Total 1000 / 1000 2620 / 2620 1000 / 1000 Output Total 450 / 450 1225 / 1225 Balance 550 / 550 1395 / 1395 1000 / 1000 Weight 60.2 kg Intake: IV 1000 / 1000 1900 / 1900 1000 / 1000 Alburx 5% Inj 1,900 ML @ 250 1900 / 1900 mls/hr IV.SIG Q48H [facility] Rx#: [id number] NS Inj 1,000 ML @ 100 mls/hr IV 1000 / 1000 1000 / 1000 .SIG .Q10H [facility] Rx#:[id number] Oral 720 / 720 Output: Urine 450 / 450 1225 / 1225 Other: # Voids 4 Date of Last Bowel Movement 10/28/17 10/28/17 10/29/17 - Routine Neurological Exam alert, oriented MOTOR 5/5 BUE. 2/5 LLE, 3+/5 RLE - Urinary Catheter Management Condom Cath placed during this visit: no Review/Management - Diagnosis (1) Multiple sclerosis exacerbation Code(s): G35 - Multiple sclerosis Status: Acute Current Visit: Yes - Review/Management Plan: continue plasmapheresis every other day for total of 7-tomorow is treatment #7 [facility] after pheresis
[2017-10-29] MEDS: AUBAGIO 14 MG PO SCH (21:08)
[2017-10-29] MEDS: Baclofen 10 MG Tablet PO SCH (21:08)
[2017-10-29] MEDS: Melatonin 5 MG Tablet PO PRN (21:16)
[2017-10-30] MEDS: Sod Chloride 0.9% Inj 1,000 ML IV.SIG SCH ×2 (00:38→08:06)
[2017-10-30] MEDS: clonazePAM 0.5 MG Tablet PO SCH (04:46)
[2017-10-30 06:09] LABS: Hematocrit 31.1 % (39.0-51.0); Hemoglobin 10.4 gm/dL (13.0-17.0); Mean Corpuscular HGB Conc 33.4 % (32.0-36.0); Mean Corpuscular Hemoglobin 29.2 pg (27.0-34.0); Mean Corpuscular Volume 87.1 fL (80.0-100.0); Mean Platelet Volume 8.2 fL (7.0-11.0); Platelet Count 236 th/mm3 (150-450); Red Blood Count 3.57 mil/mm3 (4.50-5.90); Red Cell Distribution Width 13.4 % (11.6-17.2); White Blood Count 6.5 th/mm3 (4.0-11.0)
[2017-10-30 06:33] LABS: Anion Gap 6 meq/L (5-15); Blood Urea Nitrogen 9 mg/dL (7-18); Calcium 8.3 mg/dL (8.5-10.1); Carbon Dioxide 25.1 meq/L (21.0-32.0); Chloride 114 meq/L (98-107); Glomerular Filtration Rate Greater Than 89 mL/min (>89); Glucose,Random 95 mg/dL (74-106); Potassium 3.5 meq/L (3.5-5.1); Sodium 145 meq/L (136-145)
[2017-10-30 06:46] LABS: Activated Partial Thrombo Time 25.7 sec (24.3-30.1); INR 1.1 Ratio; Prothrombin Time 10.7 sec (9.8-11.6)
--- NOTE | 2017-10-30 07:33 | P.PNONC ---
Subjective Interval history: Patient is feeling stronger. No report of bleeding. He denies any chest pain or shortness of breath. He is eager to go to rehab. Objective Vital Signs/Intake & Output: Vital Signs 10/29/17 11:00 10/29/17 15:00 10/29/17 19:33 Temperature 97.8 F 98.1 F Pulse Rate 100 H 91 H 112 H Respiratory Rate 22 18 18 Blood Pressure 100/80 133/95 H 116/96 H Pulse Oximetry 96 100 98 10/30/17 00:39 10/30/17 04:47 Temperature 98 F 98.1 F Pulse Rate 104 H 99 H Respiratory Rate 18 20 Blood Pressure 99/65 L 107/73 Pulse Oximetry 99 99 Intake & Output 10/29/17 10/30/17 10/30/17 18:59 06:59 18:59 Intake Total 1940 / 1940 1600 / 1600 Output Total 600 / 600 Balance 1940 / 1940 1000 / 1000 Weight 57.3 kg Intake: IV 1000 / 1000 1000 / 1000 NS Inj 1,000 ML @ 100 mls/hr IV 1000 / 1000 1000 / 1000 .SIG .Q10H [facility] Rx#:[id number] Oral 940 / 940 600 / 600 Output: Urine Amount (Catheter) 600 / 600 Condom 600 / 600 Other: # Voids 1 Date of Last Bowel Movement 10/29/17 10/29/17 # Bowel Movements 1 Result Diagrams: 10/30/17 05:31 10/30/17 05:31 Laboratory Results: Laboratory Results - last 24 hr 10/30/17 10/30/17 10/30/17 05:31 05:31 05:31 WBC 6.5 RBC 3.57 L Hgb 10.4 L Hct 31.1 L MCV 87.1 MCH 29.2 MCHC 33.4 RDW 13.4 Plt Count 236 MPV 8.2 PT 10.7 INR 1.1 APTT 25.7 Fibrinogen 257 Sodium 145 Potassium 3.5 Chloride 114 H Carbon Dioxide 25.1 Anion Gap 6 BUN 9 Creatinine 0.53 L Estimated GFR Greater than 89 Random Glucose 95 Calcium 8.3 L Medications: Active Medications Generic Name Dose Route Start Last Admin Trade Name Freq PRN Reason Stop Dose Admin Acetaminophen 650 mg 10/17/17 08:02 10/29/17 10:54 Tylenol PO 650 mg Q4H PRN Administration Headache, fever, pain 1-4 Baclofen 10 mg 10/22/17 21:00 10/29/17 21:08 Lioresal PO 10 mg HS [facility] Administration Clonazepam 0.5 mg 10/17/17 20:00 10/30/17 04:46 Klonopin PO 0.5 mg Q8H [facility] Administration Enoxaparin Sodium 40 mg 10/17/17 09:00 10/29/17 10:51 Lovenox Inj SQ 40 mg Q24H [facility] Administration Albumin Human 1,900 mls @ 250 mls/hr 10/18/17 12:00 10/28/17 20:00 Alburx 5% Inj IV.SIG 10/30/17 19:35 Infused Q48H [facility] Infusion Sodium Chloride 1,000 mls @ 100 mls/hr 10/23/17 18:00 10/30/17 00:38 Ns Inj IV.SIG Not Given .Q10H [facility] Melatonin 5 mg 10/17/17 21:00 10/29/17 21:16 Melatonin PO 5 mg HS PRN Administration INSOMNIA Metoprolol Tartrate 12.5 mg 10/27/17 09:00 10/29/17 21:07 Lopressor PO 12.5 mg BID [facility] Administration Nicotine 1 patch 10/17/17 12:00 10/29/17 10:51 Habitrol 14 Mg Patch.24 Hr T-DERMAL 1 patch DAILY [facility] Administration Patch Removal 1 each 10/18/17 09:00 10/29/17 10:51 Remove Old Patch T-DERMAL 1 each DAILY [facility] Administration Patient Own 1 each 10/17/17 21:00 10/29/17 21:08 Medication: Aubagio PO 1 each (Teriflunomide) 14mg HS [facility] Administration Tablet Sodium Citrate 1,000 ml 10/18/17 11:08 10/28/17 19:00 Acd-A Solution EXTRACORPO 10/30/17 23:59 1,000 ml UNSCH PRN Administration APHERESIS Temazepam 15 mg 10/17/17 21:00 10/19/17 02:52 Restoril PO 15 mg HS PRN Administration INSOMNIA Objective Remarks: GENERAL: Well-nourished, well-developed patient. SKIN: Warm and dry. HEAD: Normocephalic. EYES: No scleral icterus. No injection or drainage. NECK: Supple, trachea midline. No JVD or lymphadenopathy. Right neck vas cath site no bleeding. LYMPHATIC: No adenopathy. CARDIOVASCULAR: Regular rate and rhythm without murmurs. RESPIRATORY: Breath sounds equal bilaterally. No accessory muscle use. GASTROINTESTINAL: Abdomen soft, non-tender, nondistended. EXTREMITIES: No cyanosis, or edema. MUSCULOSKELETAL: Adequate muscle tone. NEUROLOGICAL: Awake, alert, and oriented x3. Able to move bilateral lower extremities. PSYCHIATRIC: Appropriate mood and affect; insight and judgment normal. Assessment/Plan (1) Multiple sclerosis Code(s): G35 - Multiple sclerosis Status: Chronic - Plan 32-year-old male with multiple sclerosis exacerbation; hematology consulted for coordination of plasma exchange 1. Plasma exchange initiated on 10/18/2017. Plan is for 7 total treatments, every other day. Subjectively reports hearing improving. Still has lower extremity paralysis but able to move his feet. 2. He will have his final treatment on 10/30/17. 3. Continue supportive care 4. We will have IR remove the Vas-Cath before discharge to rehab.
[2017-10-30] MEDS: Metoprolol Tartrate 25 MG Tablet PO SCH (08:05)
[2017-10-30] MEDS: Enoxaparin Inj 40 MG/0.4 ML Syringe SQ SCH (08:05)
[2017-10-30] MEDS: Anticoagulant Citrate Dextrose 1,000 ML Solution EXTRACORPO PRN (11:15)
[2017-10-30] MEDS: ALBUMIN HUMAN 5% IV.SIG SCH (11:15)
[2017-10-30] MEDS: Calcium Carbonate 500 MG Tablet PO PRN (11:15)
--- NOTE | 2017-10-30 11:33 | P.DS ---
Date of admission: 10/17/17 07:12 Primary care physician: Dwight Diaz MD, PhD Brief History from admission: Mr. Yu is a 32-year-old male with a history of multiple sclerosis , tobacco, marijuana use who presents to the hospital as a direct admit by neurologist Dr. Quintero for plasmapheresis. Dr. Dwight Diaz is patient's neurologist. Mr. Yu was admitted in November 2016 for MS exacerbation. About a month prior to this hospitalization, he had an episode of ear infection. Although he had hearing difficulties on one ear, since he had ear infection, now he has bilateral hearing loss. His lower extremity weakness has not improved despite aggressive in-patient and in-home physical therapy. Currently, patient is resting in bed comfortably. No CP, SOB, fever, chills. Parents at bedside. DS: Diagnosis - Discharge Diagnosis (1) Multiple sclerosis Status: Chronic DS: Summary Hospital Course: Clinical update at DC: Feels better today. Appetite is much better and he is eating well. Still with weakness but improving. Also vision and hearing is improving but not much. No n/v/d/c. Assessment and plan: 32 YOWM with history of MS and tobacco abuse admitted on 10/17 for progressive MS causing him to essentially be bedridden despite outpatient IV steroids and aggressive PT. He was admitted by his neurologist for plasmapheresis. The patient finished several rounds of plasmapheresis. He improved. The patient is discharged to [facility] in fairly stable condition to follow-up PCP and consultants as outpatient. 1. Severe multiple sclerosis - Pt with bilateral hearing loss and extreme weakness on presentation - Heme/onc consulted for plasmapheresis - Plan is for plasmapheresis every other day x 7 treatments; initiated 10/18 ( completed five rounds so far) - PT following - Continue home Klonopin, Baclofen and Aubagio 2. HTN - BPs stable - Change Enalapril to metoprolol since tachycardic 3. Tobacco abuse - Continue nicotine TD 4. Tachycardia - BP has been normal - Starting metoprolol as above - Avoid caffeine - Possibly nicotine patch contributing? - Continue to monitor 5. Severe protein calorie malnutrition: - Elevator [employer] consulted - Ensure TID with meals - Encourage PO intake DVT prophylaxis: Lovenox Discharge Planning: Finished 7 rounds of plasmapheresis DC to [facility] in fairly stable condition to follow-up with PCP and consultants as outpatient - Time Spent with Patient Total time spent providing and/or coordinating discharge services: Greater than 30 minutes - Quality: VTE Deep Vein Thrombosis/Pulmonary Embolism Present on Admission: No Exam Vital signs: Vital Signs 10/29/17 15:00 10/29/17 19:33 10/30/17 00:39 Temperature 98.1 F 98 F Pulse Rate 91 H 112 H 104 H Respiratory Rate 18 18 18 Blood Pressure 133/95 H 116/96 H 99/65 L Pulse Oximetry 100 98 99 10/30/17 04:47 10/30/17 07:00 Temperature 98.1 F Pulse Rate 99 H 92 H Respiratory Rate 20 16 Blood Pressure 107/73 106/65 Pulse Oximetry 99 99 Intake & Output 10/29/17 10/30/17 10/30/17 18:59 06:59 18:59 Intake Total 1940 / 1940 1600 / 1600 1000 / 1000 Output Total 600 / 600 Balance 1940 / 1940 1000 / 1000 1000 / 1000 Weight 57.3 kg Intake: IV 1000 / 1000 1000 / 1000 1000 / 1000 NS Inj 1,000 ML @ 100 mls/hr IV 1000 / 1000 1000 / 1000 1000 / 1000 .SIG .Q10H [facility]ER Rx#:[id number] Oral 940 / 940 600 / 600 Output: Urine Amount (Catheter) 600 / 600 Condom 600 / 600 Other: # Voids 1 Date of Last Bowel Movement 10/29/17 10/29/17 10/30/17 # Bowel Movements 1 Narrative: GENERAL: Cachectic young male resting in bed in [facility]. He is more awake and alert. HEART:Regular rhythm and rate. No murmurs. LUNGS: CTAB without wheezes or crackles. ABDOMEN: +BS, soft, NT, ND. EXTREMITIES: No LE edema. NEURO: Awake and alert. Decreased hearing. Results Procedures completed during hospitalization: Vas-Cath placement 10/17/2017 by interventional radiology. Labs on day of discharge: Labs from last 24 hours 10/30/17 10/30/17 10/30/17 05:31 05:31 05:31 WBC 6.5 RBC 3.57 L Hgb 10.4 L Hct 31.1 L MCV 87.1 MCH 29.2 MCHC 33.4 RDW 13.4 Plt Count 236 MPV 8.2 PT 10.7 INR 1.1 APTT 25.7 Fibrinogen 257 Sodium 145 Potassium 3.5 Chloride 114 H Carbon Dioxide 25.1 Anion Gap 6 BUN 9 Creatinine 0.53 L Estimated GFR Greater than 89 Random Glucose 95 Calcium 8.3 L - Impressions ITS Impressions Catheter Placement 10/17/17 00:00 CONCLUSION: 1. Uncomplicated line placement as above. Cervical Spine MRI 10/17/17 00:00 CONCLUSION: 1. Examination is somewhat limited due to patient motion during scanning particularly degrading the axial sequences and therefore making it very difficult to determine if there are demyelinating plaques present within the cervical cord. 2. Minimal diffuse disc bulges and uncovertebral joint spurring is noted at C5- 6 and C6-7 resulting in mild bilateral foraminal narrowing at these levels. 3. Mild cervical spondylosis is noted C5-6 and C6-7. Head MRI 10/17/17 00:00 CONCLUSION: 1. Extensive periventricular and subcortical demyelinating plaques are again noted and appears slightly worse than the previous examination in October 2016. Scattered enhancement of the periventricular and subcortical plaques is noted suggesting active demyelination. There is also a prominent new plaque within the region of the right brachium pontis measuring 15 mm and demonstrating some peripheral enhancement. A new plaque within the right midbrain is also identified and demonstrates some associated edema. The findings are consistent with interval worsening fifth multiple sclerosis. 2. No acute infarct, acute hemorrhage, midline shift or extra-axial fluid collections are noted. Thoracic Spine MRI 10/17/17 00:00 CONCLUSION: 1. The examination is limited by patient motion during scanning. There appeared to be demyelinating plaques throughout the thoracic cord at multiple levels. In order to identify the exact location of these plaques repeat scan without motion is necessary. 2. Minimal posterior osteophytic spurring is noted at T3-4 resulting in very minimal effacement of the anterior thecal sac. Discharge Plan - Discharge Disposition Patient Disposition: 03 Discharge to SNF - Discharge Condition Condition: Stable - Discharge Order Discharge Orders: Discharge Order (Routine); Ordered 10/30/17 Ordered By: Sera Hoffmann - Discharge Details Anticipated Discharge Date: 10/30/17 - Physicians Team Primary Care Provider: Dwight Diaz Attending Provider: Sera Hoffmann Other Providers: Lion Olivares MD ; Dwight Diaz MD, PhD - Rxs /Orders / Referrals /Forms Referrals: Lion Olivares MD [Physician] - See Instructions ( Please call the physician's office to book the appointment to be seen within [1 week ].) Dwight Diaz MD, PhD [Primary Care Provider] - See Instructions ( Please call the physician's office to book the appointment to be seen within [ 1 week ] .)
== END 2017-10-30 16:27 ==
LOC: HCIN 07:12
PROVIDERS: ADMIT Hospitalist; ATTEND Hospitalist